=== PATIENT | male | born 1990 | race Caucasian/White ===

== ENCOUNTER 2020-05-03 07:00 | Outpatient (CLI) | payer OTHER | END 2020-05-03 23:59 | disposition home or self-care (01) | LOC: LAB.R 07:00 | PROVIDERS: ATTEND Physician Assistant Medical | DX: R31.9 Hematuria, unspecified (principal) | CPT/HCPCS: 87086 ==

== ENCOUNTER 2020-08-11 12:31 | Outpatient (CLI) | payer OTHER | END 2020-08-11 12:32 | disposition home or self-care (01) | LOC: COV 12:31 | PROVIDERS: ATTEND Family Medicine | DX: R50.9 Fever, unspecified (principal); R19.7 Diarrhea, unspecified; Z20.828 Contact with and (suspected) exposure to other viral communicable diseases ==

== ENCOUNTER 2022-12-12 16:35 | Outpatient (CLI) | payer SELFPAY ==
--- NOTE | 2022-12-13 19:20 | XRAY Report ---
PROCEDURE: Shoulder 2 View RT INDICATIONS: PAIN IN RIGHT SHOULDER TECHNIQUE: 2 views of the shoulder were acquired. COMPARISON: None. FINDINGS: Bones: No fractures or dislocations. No suspicious bony lesions. Visualized ribs appear intact. Soft tissues: No suspicious soft tissue calcifications. IMPRESSION: Unremarkable radiographic examination of right shoulder. Reviewed by: Dane Farley MD on 12/13/2022 7:19 PM PST Approved by: Dane Farley MD on 12/13/2022 7:19 PM [facility] Station ID: [id number]
== END 2022-12-12 16:36 | disposition home or self-care (01) ==
LOC: DI 16:35
PROVIDERS: ATTEND Physician Assistant
DX: M25.511 Pain in right shoulder (principal)

== ENCOUNTER 2023-02-07 08:25 | Emergency (ER) | payer SELFPAY ==
--- OUTSIDE RECORDS SUMMARY | 2023-02-07 09:02 | EXTERNAL MEDICAL SUMMARY RPT | Continuity of Care Document ---
:1990 Author Organization [facility] Address [address] [place] [address] Phone Care Team Providers Name Role Phone Kathie Otero Unavailable Unavailable Allergies and Intolerances date description facility type (no date) No Known Drug Allergies [facility] ([facility] own) Encounters No information. Functional Status No information. Immunizations No information. Medications date description facility 2022-12-23 00:00 Ondansetron [facility] 2022-12-23 00:00 [facility] Problems date description facility 2022-12-23 00:00 Calculus of kidney [facility] 2023-01-18 00:00 Abdominal pain [facility] Procedures date description facility 2022-12-23 00:00 CT kidney, ureter and bladder [facility] 2023-01-17 00:00 CT abdomen pelvis [facility] Results/Labs test date author facility value unit interpret ation Result panel 1 (unknown) (no date[facility]) Result panel 2 (unknown) (no date) (unknown[facility] Result panel 3 (unknown) (no date) (unknown[facility]) Result panel 4 (unknown) (no date) (unknown[facility]) Result panel 5 (unknown) (no date) (unknown[facility]) Result panel 6 (unknown) (no date) (unknown[facility]) Result panel 7 (unknown) (no date) (unknown[facility]) Result panel 8 (unknown) (no date) (unknown[facility]) Result panel 9 (unknown) (no date) (unknown[facility]) Result panel 10 (unknown) (no date) (unknown[facility]) Result panel 11 (unknown) (no date) (unknown[facility]) Result panel 12 (unknown) (no date) (unknown[facility]) Result panel 13 (unknown) (no date) (unknown[facility]) Result panel 14 (unknown) (no date) (unknown[facility]) Result panel 15 (unknown) (no date) (unknown[facility]) Result panel 16 (unknown) (no date) (unknown[facility]) Result panel 17 (unknown) (no date) (unknown[facility]) Result panel 18 (unknown) (no date) (unknown[facility]) Result panel 19 (unknown) (no date) (unknown[facility]) Result panel 20 (unknown) (no date) (unknown[facility]) Result panel 21 (unknown) (no date) (unknown[facility]) Result panel 22 (unknown) (no date) (unknown[facility]) Result panel 23 (unknown) (no date) (unknown[facility]) Result panel 24 (unknown) (no date) (unknown[facility]) Result panel 25 (unknown) (no date) (unknown[facility]) Result panel 26 (unknown) (no date) (unknown[facility]) Result panel 27 (unknown) (no date) (unknown[facility]) Result panel 28 (unknown) (no date) (unknown[facility]) Result panel 29 (unknown) (no date) (unknown[facility]) Result panel 30 (unknown) (no date) (unknown[facility]) Result panel 31 (unknown) (no date) (unknown[facility]) Result panel 32 (unknown) (no date) (unknown[facility]) Result panel 33 (unknown) (no date) (unknown[facility]) Result panel 34 (unknown) (no date) (unknown[facility]) Result panel 35 (unknown) (no date) (unknown[facility]) Result panel 36 (unknown) (no date) (unknown[facility]) Result panel 37 (unknown) (no date) (unknown[facility]) Result panel 38 (unknown) (no date) (unknown[facility]) Result panel 39 (unknown) (no date) (unknown[facility]) Result panel 40 (unknown) (no date) (unknown[facility]) Result panel 41 (unknown) (no date) (unknown[facility]) Result panel 42 (unknown) (no date) (unknown[facility]) Result panel 43 (unknown) (no date) (unknown[facility]) Result panel 44 (unknown) (no date) (unknown[facility]) Result panel 45 (unknown) (no date) (unknown[facility]) Result panel 46 (unknown) (no date) (unknown[facility]) Result panel 47 (unknown) (no date) (unknown[facility]) Result panel 48 (unknown) (no date) (unknown[facility]) Result panel 49 (unknown) (no date) (unknown[facility]) Result panel 50 (unknown) (no date) (unknown[facility]) Result panel 51 (unknown) (no date) (unknown) [facility]) Result panel 52 (unknown) (no date) (unknown) [facility]) Result panel 53 (unknown) (no date) (unknown) [facility]) Result panel 54 (unknown) (no date) (unknown[facility]) Result panel 55 (unknown) (no date) (unknown[facility]) Result panel 56 (unknown) (no date) (unknown) [facility]) Result panel 57 (unknown) (no date) (unknown[facility]) Result panel 58 (unknown) (no date) (unknown[facility]) Result panel 59 (unknown) (no date) (unknown[facility]) Result panel 60 (unknown) (no date) (unknown[facility]) Result panel 61 (unknown) (no date) (unknown[facility]) Result panel 62 (unknown) (no date) (unknown) [facility]) Result panel 63 (unknown) (no date) (unknown[facility]) Result panel 64 (unknown) (no date) (unknown[facility]) Result panel 65 (unknown) (no date) (unknown) [facility]) Result panel 66 (unknown) (no date) (unknown) [facility]) Result panel 67 (unknown) (no date) (unknown[facility]) Result panel 68 (unknown) (no date) (unknown[facility]) Result panel 69 (unknown) (no date) (unknown[facility]) Result panel 70 (unknown) (no date) (unknown) [facility]) Result panel 71 (unknown) (no date) (unknown) [facility]) Result panel 72 (unknown) (no date) (unknown[facility]) Result panel 73 (unknown) (no date) (unknown[facility]) Result panel 74 (unknown) (no date) (unknown) [facility]) Result panel 75 (unknown) (no date) (unknown) [facility]) Result panel 76 (unknown) (no date) (unknown) [facility]) Result panel 77 (unknown) (no date) (unknown[facility]) Result panel 78 (unknown) (no date) (unknown) [facility]) Result panel 79 (unknown) (no date) (unknown) [facility]) Result panel 80 (unknown) (no date) (unknown) [facility]) Result panel 81 (unknown) (no date) (unknown[facility]) Result panel 82 (unknown) (no date) (unknown[facility]) Result panel 83 (unknown) (no date) (unknown[facility]) Result panel 84 (unknown) (no date) (unknown[facility]) Result panel 85 (unknown) (no date) (unknown[facility]) Result panel 86 (unknown) (no date) (unknown[facility]) Result panel 87 (unknown) (no date) (unknown[facility]) Result panel 88 (unknown) (no date) (unknown[facility]) Result panel 89 (unknown) (no date) (unknown[facility]) Result panel 90 (unknown) (no date) (unknown[facility]) Result panel 91 (unknown) (no date) (unknown[facility]) Result panel 92 (unknown) (no date) (unknown[facility]) Result panel 93 (unknown) (no date) (unknown[facility]) Result panel 94 (unknown) (no date) (unknown[facility]) Result panel 95 (unknown) (no date) (unknown[facility]) Result panel 96 (unknown) (no date) (unknown[facility]) Result panel 97 (unknown) (no date) (unknown[facility]) Result panel 98 (unknown) (no date) (unknown[facility]) Result panel 99 (unknown) (no date) (unknown[facility]) Result panel 100 (unknown) (no date) (unknown[facility]) Result panel 101 (unknown) (no date) (unknown[facility]) Result panel 102 (unknown) (no date) (unknown[facility]) Result panel 103 (unknown) (no date) (unknown[facility]) Result panel 104 (unknown) (no date) (unknown[facility]) Result panel 105 (unknown) (no date) (unknown[facility]) Result panel 106 (unknown) (no date) (unknown[facility]) Result panel 107 (unknown) (no date) (unknown[facility]) Result panel 108 (unknown) (no date) (unknown[facility]) Result panel 109 (unknown) (no date) (unknown[facility]) Result panel 110 (unknown) (no date) (unknown[facility]) Result panel 111 (unknown) (no date) (unknown) [facility]) Result panel 112 (unknown) (no date) (unknown[facility]) Result panel 113 (unknown) (no date) (unknown[facility]) Result panel 114 (unknown) (no date) (unknown[facility]) Result panel 115 (unknown) (no date) (unknown[facility]) Result panel 116 (unknown) (no date) (unknown[facility]) Result panel 117 (unknown) (no date) (unknown) [facility]) Result panel 118 (unknown) (no date) (unknown) [facility]) Result panel 119 (unknown) (no date) (unknown) [facility]) Result panel 120 (unknown) (no date) (unknown) [facility]) Result panel 121 (unknown) (no date) (unknown[facility]) Result panel 122 (unknown) (no date) (unknown[facility]) Result panel 123 (unknown) (no date) (unknown) [facility]) Result panel 124 (unknown) (no date) (unknown[facility]) Result panel 125 (unknown) (no date) (unknown[facility]) Result panel 126 (unknown) (no date) (unknown[facility]) Result panel 127 (unknown) (no date) (unknown[facility]) Result panel 128 (unknown) (no date) (unknown[facility]) Result panel 129 (unknown) (no date) (unknown[facility]) Result panel 130 (unknown) (no date) (unknown[facility]) Result panel 131 (unknown) (no date) (unknown[facility]) Result panel 132 (unknown) (no date) (unknown) [facility]) Result panel 133 (unknown) (no date) (unknown[facility]) Result panel 134 (unknown) (no date) (unknown[facility]) Result panel 135 (unknown) (no date) (unknown) [facility]) Result panel 136 (unknown) (no date) (unknown) [facility]) Result panel 137 (unknown) (no date) (unknown[facility]) Result panel 138 (unknown) (no date) (unknown) [facility]) Result panel 139 (unknown) (no date) (unknown[facility]) Result panel 140 (unknown) (no date) (unknown[facility]) Result panel 141 (unknown) (no date) (unknown[facility]) Result panel 142 (unknown) (no date) (unknown) [facility]) Result panel 143 (unknown) (no date) (unknown[facility]) Result panel 144 (unknown) (no date) (unknown[facility]) Result panel 145 (unknown) (no date) (unknown) [facility]) Result panel 146 (unknown) (no date) (unknown) [facility]) Result panel 147 (unknown) (no date) (unknown) [facility]) Result panel 148 (unknown) (no date) (unknown) [facility]) Result panel 149 (unknown) (no date) (unknown) [facility]) Result panel 150 (unknown) (no date) (unknown) [facility]) Result panel 151 (unknown) (no date) (unknown) [facility]) Result panel 152 (unknown) (no date) (unknown) [facility]) Result panel 153 (unknown) (no date) (unknown) [facility]) Result panel 154 (unknown) (no date) (unknown) [facility]) Result panel 155 (unknown) (no date) (unknown) [facility]) Result panel 156 (unknown) (no date) (unknown) [facility]) Result panel 157 (unknown) (no date) (unknown) [facility]) Result panel 158 (unknown) (no date) (unknown) [facility]) Result panel 159 (unknown) (no date) (unknown) [facility]) Result panel 160 (unknown) (no date) (unknown) [facility]) Result panel 161 (unknown) (no date) (unknown) [facility]) Result panel 162 (unknown) (no date) (unknown) [facility]) Result panel 163 (unknown) (no date) (unknown) [facility]) Result panel 164 (unknown) (no date) (unknown) [facility]) Result panel 165 (unknown) (no date) (unknown) [facility]) Result panel 166 (unknown) (no date) (unknown) [facility]) Result panel 167 (unknown) (no date) (unknown) [facility]) Result panel 168 (unknown) (no date) (unknown) [facility]) Result panel 169 (unknown) (no date) (unknown) [facility]) Result panel 170 (unknown) (no date) (unknown) [facility]) Result panel 171 (unknown) (no date) (unknown) [facility]) Result panel 172 (unknown) (no date) (unknown) [facility]) Result panel 173 (unknown) (no date) (unknown) [facility]) Result panel 174 (unknown) (no (unknown) (unknown) (no value) (units (unk nown) date) unknown) (unknown) (no (unknown) (unknown) 12/23/22 (units (unkno wn) date) unknown) (unknown) (no (unknown) (unknown) 1. Obstructing (units (unknown) date) urinary stone at unknown) the right UPJ with mild right hydronephrosis. (unknown) (no (unknown) (unknown) [address] (units (unknown) date) unknown) (unknown) (no (unknown) (unknown) 2. Additional (units ( unknown) date) bilateral unknown) nonobstructing renal stones as described. (unknown) (no (unknown) (unknown) [id number] (units (unkno wn) date) unknown) (unknown) (no (unknown) (unknown) 300-400 (units (unkno wn) date) [place] units. unknown) There is associated mild right hydronephrosis with (unknown) (no (unknown) (unknown) ABDOMEN: (units (unkno wn) date) unknown) (unknown) (no (unknown) (unknown) Abdominal Nodes: (units (unknown) date) No retroperitoneal unknown) or mesenteric adenopathy by size criteria. (unknown) (no (unknown) (unknown) Accession Number: (units (unknown) date) [id number] unknown) (unknown) (no (unknown) (unknown) Adrenal Glands: (units (unknown) date) No adrenal unknown) nodules. (unknown) (no (unknown) (unknown) Age/Sex: 32 / M (units (unknown) date) Date of Service: unknown) (unknown) (no (unknown) (unknown) [place], [place] (units ( unknown) date) [id number] unknown) (unknown) (no (unknown) (unknown) Approved by: (units (u nknown) date) Elijah Ramirez, unknown) Antonia on 12/23/2022 at 1:42 (unknown) (no (unknown) (unknown) Axial sections (units (unknown) date) were acquired from unknown) the lung bases to the pubic symphysis. (unknown) (no (unknown) (unknown) Biliary ducts: No (units (unknown) date) biliary ductal unknown) dilatation. (unknown) (no (unknown) (unknown) Bladder: Normal (units (unknown) date) wall thickness. No unknown) stones. (unknown) (no (unknown) (unknown) Bones: Visualized (units (unknown) date) osseous structures unknown) demonstrate no suspicious focal lesions. (unknown) (no (unknown) (unknown) COMPARISON: (units (un known) date) [facility], unknown) CT, CT ABDOMEN PELVIS [facility], 05/18/2022, 19:05. (unknown) (no (unknown) (unknown) CT Scan Report (units (unknown) date) unknown) (unknown) (no (unknown) (unknown) Coronal and (units (un known) date) unknown) (unknown) (no (unknown) (unknown) : 1990 (units (unknown) date) Acct:[id number] unknown) (unknown) (no (unknown) (unknown) Dictated by: (units (u nknown) date) Elijah Ramirez unknownMorris Knight on 12/23/2022 at 1:39 (unknown) (no (unknown) (unknown) FINDINGS: (units (unkn own) date) unknown) (unknown) (no (unknown) (unknown) Gallbladder: (units (u nknown) date) Within normal unknown) limits without calcified gallstones. (unknown) (no (unknown) (unknown) Heart: Heart is (units (unknown) date) normal in size. unknown) (unknown) (no (unknown) (unknown) Hospital, CT, (units ( unknown) date) KIDNEY/ unknown) URETER/BLADDER, 11/20/2015, 22:21. (unknown) (no (unknown) (unknown) IMPRESSION: (units (un known) date) unknown) (unknown) (no (unknown) (unknown) INDICATIONS: (units (u nknown) date) right flank prior unknown) stones (unknown) (no (unknown) (unknown) Image quality: (units (unknown) date) Excellent. unknown) (unknown) (no (unknown) (unknown) [facility] (units (unknown) date) unknown) (unknown) (no (unknown) (unknown) Prole (units (unkno wn) date) unknown) (unknown) (no (unknown) (unknown) Left Kidney and (units (unknown) date) Ureter: There are unknown) 3 nonobstructing left renal stones with the (unknown) (no (unknown) (unknown) Liver: (units (unkno wn) date) Noncontrast unknown) evaluation of the liver demonstrates no discrete mass. (unknown) (no (unknown) (unknown) Loc: ED (units (unkno wn) date) unknown) (unknown) (no (unknown) (unknown) Lung bases: There (units (unknown) date) is minimal unknown) atelectasis. (unknown) (no (unknown) (unknown) Miscellaneous: No (units (unknown) date) inguinal hernias unknown) identified. (unknown) (no (unknown) (unknown) Ordering (units (unkno wn) date) Provider: unknown) Nicole Gray D.O. (unknown) (no (unknown) (unknown) PELVIS: (units (unkno wn) date) unknown) (unknown) (no (unknown) (unknown) PROCEDURE: CT (units ( unknown) date) KIDNEY URETER unknown) BLADDER (KUB) (unknown) (no (unknown) (unknown) Pancreas: (units (unkn own) date) Unremarkable. unknown) (unknown) (no (unknown) (unknown) Patient: (units (unkno wn) date) Chapo Davis MR#: unknown) [id number] (unknown) (no (unknown) (unknown) Pelvic Nodes: No (units (unknown) date) enlarged lymph unknown) nodes. (unknown) (no (unknown) (unknown) Pelvic Organs: (units (unknown) date) Unremarkable. unknown) (unknown) (no (unknown) (unknown) Peritoneum: No (units (unknown) date) abnormal unknown) intraperitoneal fluid. No free air. (unknown) (no (unknown) (unknown) Procedure: CT (units ( unknown) date) kidney ureter unknown) bladder (KUB) (unknown) (no (unknown) (unknown) Right Kidney and (units (unknown) date) Ureter: There is unknown) an obstructing urinary stone at the right (unknown) (no (unknown) (unknown) Signed (units (unkno wn) date) unknown) (unknown) (no (unknown) (unknown) Spleen: Normal in (units (unknown) date) size. unknown) (unknown) (no (unknown) (unknown) Stomach and (units (un known) date) Bowel: Stomach, unknown) small bowel loops, and colon are normal in caliber (unknown) (no (unknown) (unknown) TECHNIQUE: (units (unk nown) date) unknown) (unknown) (no (unknown) (unknown) URINARY: (units (unkno wn) date) unknown) (unknown) (no (unknown) (unknown) Ventral Wall: No (units (unknown) date) hernia. unknown) (unknown) (no (unknown) (unknown) Vessels: Aorta (units (unknown) date) and inferior vena unknown) cava are normal in size. (unknown) (no (unknown) (unknown) and wall (units (unkno wn) date) unknown) (unknown) (no (unknown) (unknown) approximately (units ( unknown) date) unknown) (unknown) (no (unknown) (unknown) automated (units (unkn own) date) exposure control, unknown) adjustment of mA and/or kV according to patient (unknown) (no (unknown) (unknown) largest (units (unkno wn) date) unknown) (unknown) (no (unknown) (unknown) measuring up to (units (unknown) date) 0.4 cm. No unknown) hydronephrosis. No hydroureter. (unknown) (no (unknown) (unknown) perinephric (units (un known) date) unknown) (unknown) (no (unknown) (unknown) sagittal (units (unkno wn) date) reformats were unknown) performed. For radiation dose reduction, the following (unknown) (no (unknown) (unknown) size. (units (unkno wn) date) unknown) (unknown) (no (unknown) (unknown) stones with (units (un known) date) unknown) (unknown) (no (unknown) (unknown) stranding. There (units (unknown) date) are approximately unknown) 5 additional nonobstructing right renal (unknown) (no (unknown) (unknown) the UPJ. (units (unkno wn) date) unknown) (unknown) (no (unknown) (unknown) the largest (units (un known) date) measuring up to unknown) 0.3 cm. The right ureter is nondistended distal to (unknown) (no (unknown) (unknown) thickness. The (units (unknown) date) appendix is normal unknown) in appearance. (unknown) (no (unknown) (unknown) ureteropelvic (units ( unknown) date) junction measuring unknown) up to 0.5 cm with attenuation values of (unknown) (no (unknown) (unknown) was used: (units (unkn own) date) unknown) Result panel 175 (unknown) (no date) (unknown) (unknown) 0-1/HPF (units (unkn own) unknown) (unknown) (no date) (unknown) (unknown) 5-10/HPF (units (unkn own) unknown) (unknown) (no date) (unknown) (unknown) 5-10/HPF (units (unkn own) unknown) (unknown) (no date) (unknown) (unknown) Cult Not (units (unkn own) Indicated unknown) (unknown) (no date) (unknown) (unknown) None Seen (units (unk nown) unknown) Result panel 176 (unknown) (no date) (unknown) (unknown) 0.6 % (unkn own) (unknown) (no date) (unknown) (unknown) 10.5 x10 3/ul (unkn own) (unknown) (no date) (unknown) (unknown) 100 /ul (unkn own) (unknown) (no date) (unknown) (unknown) 13.1 % (unkn own) (unknown) (no date) (unknown) (unknown) 14.3 g/dl (unkn own) (unknown) (no date) (unknown) (unknown) 25.0 % (unkn own) (unknown) (no date) (unknown) (unknown) 254 x10 3/ul (unkn own) (unknown) (no date) (unknown) (unknown) 2600 /ul (unkn own) (unknown) (no date) (unknown) (unknown) 29.3 pg (unkn own) (unknown) (no date) (unknown) (unknown) 33.6 % (unkn own) (unknown) (no date) (unknown) (unknown) 4.8 % (unkn own) (unknown) (no date) (unknown) (unknown) 4.88 x10 6/ul (unkn own) (unknown) (no date) (unknown) (unknown) 42.5 % (unkn own) (unknown) (no date) (unknown) (unknown) 500 /ul (unkn own) (unknown) (no date) (unknown) (unknown) 61.1 % (unkn own) (unknown) (no date) (unknown) (unknown) 6400 /ul (unkn own) (unknown) (no date) (unknown) (unknown) 8.5 % (unkn own) (unknown) (no date) (unknown) (unknown) 87.1 fl (unkn own) (unknown) (no date) (unknown) (unknown) 900 /ul (unkn own) Result panel 177 (unknown) (no date) (unknown) (unknown) > 60 ml/min (unkn own) (unknown) (no date) (unknown) (unknown) > 60 ml/min (unkn own) (unknown) (no date) (unknown) (unknown) 0.4 mg/dl (unkn own) (unknown) (no date) (unknown) (unknown) 1.2 (units unknown) (unknown) (unknown) (no date) (unknown) (unknown) 1.29 mg/dl (unkn own) (unknown) (no date) (unknown) (unknown) 104 mmol/l (unkn own) (unknown) (no date) (unknown) (unknown) 106 mg/dl (unkn own) (unknown) (no date) (unknown) (unknown) 106 mg/dl (unkn own) (unknown) (no date) (unknown) (unknown) 141 mmol/l (unkn own) (unknown) (no date) (unknown) (unknown) 16.3 (units unknown) (unknown) (unknown) (no date) (unknown) (unknown) 21 mg/dl (unkn own) (unknown) (no date) (unknown) (unknown) 29 iu/l (unkn own) (unknown) (no date) (unknown) (unknown) 3.4 g/dl (unkn own) (unknown) (no date) (unknown) (unknown) 3.8 mmol/l (unkn own) (unknown) (no date) (unknown) (unknown) 30 mmol/l (unkn own) (unknown) (no date) (unknown) (unknown) 35 iu/l (unkn own) (unknown) (no date) (unknown) (unknown) 4.1 g/dl (unkn own) (unknown) (no date) (unknown) (unknown) 7.5 g/dl (unkn own) (unknown) (no date) (unknown) (unknown) 74 u/l (unkn own) (unknown) (no date) (unknown) (unknown) 75 u/l (unkn own) (unknown) (no date) (unknown) (unknown) 9.1 mg/dl (unkn own) Result panel 178 (unknown) (no (unknown) (unknown) (no value) (units (unk nown) date) unknown) (unknown) (no (unknown) (unknown) 00:50 12/23/22 (units (unknown) date) unknown) (unknown) (no (unknown) (unknown) 00:56 12/23/22 (units (unknown) date) unknown) (unknown) (no (unknown) (unknown) 00:58 12/23/22 (units (unknown) date) unknown) (unknown) (no (unknown) (unknown) 00:58 (units (unkno wn) date) unknown) (unknown) (no (unknown) (unknown) 01:00 12/23/22 (units (unknown) date) unknown) (unknown) (no (unknown) (unknown) 01:10 01:40 (units (un known) date) 01:40 unknown) (unknown) (no (unknown) (unknown) 01:34 (units (unkno wn) date) unknown) (unknown) (no (unknown) (unknown) 01:42 12/23/22 (units (unknown) date) unknown) (unknown) (no (unknown) (unknown) 12/23/22 01:10 (units (unknown) date) unknown) (unknown) (no (unknown) (unknown) 12/23/22 01:36 (units (unknown) date) unknown) (unknown) (no (unknown) (unknown) 12/23/22 01:40 (units (unknown) date) unknown) (unknown) (no (unknown) (unknown) 12/23/22 (units (unkno wn) date) 12/23/22 12/23/22 unknown) Range/Units (unknown) (no (unknown) (unknown) 12/23/22 (units (unkno wn) date) unknown) (unknown) (no (unknown) (unknown) 02:00 (units (unkno wn) date) unknown) (unknown) (no (unknown) (unknown) 1 tab PO BID (units (u nknown) date) Qty: 20 0RF unknown) (unknown) (no (unknown) (unknown) [address] (units (unkno wn) date) unknown) (unknown) (no (unknown) (unknown) ALT 35 (<50) (units (u nknown) date) IU/L unknown) (unknown) (no (unknown) (unknown) AST 29 (17-59) (units (unknown) date) IU/L unknown) (unknown) (no (unknown) (unknown) Age/Sex: 32 / M (units (unknown) date) unknown) (unknown) (no (unknown) (unknown) Albumin 4.1 (units (un known) date) (3.5-5.0) g/dL unknown) (unknown) (no (unknown) (unknown) Albumin/Globulin (units (unknown) date) Ratio 1.2 unknown) (1.0-2.8) (unknown) (no (unknown) (unknown) Alkaline (units (unkno wn) date) Phosphatase 74 unknown) (38-126) U/L (unknown) (no (unknown) (unknown) Allergies (units (unkn own) date) unknown) (unknown) (no (unknown) (unknown) Allergy/AdvReac (units (unknown) date) Type Severity unknown) Reaction Status Date / Time (unknown) (no (unknown) (unknown) BUN 21 H (9-20) (units (unknown) date) mg/dL unknown) (unknown) (no (unknown) (unknown) BUN/Creatinine (units (unknown) date) Ratio 16.3 (6-22) unknown) (unknown) (no (unknown) (unknown) Baso # (Auto) (units ( unknown) date) 100 (0-100) /uL unknown) (unknown) (no (unknown) (unknown) Baso % (Auto) (units ( unknown) date) 0.6 (0-2) % unknown) (unknown) (no (unknown) (unknown) Bedside Urine (units ( unknown) date) Bilirubin - unknown) Negative (unknown) (no (unknown) (unknown) Bedside Urine (units ( unknown) date) Glucose Negative unknown) (unknown) (no (unknown) (unknown) Bedside Urine (units ( unknown) date) Ketone - Negative unknown) (unknown) (no (unknown) (unknown) Bedside Urine (units ( unknown) date) Leukocytes - unknown) Negative (unknown) (no (unknown) (unknown) Bedside Urine (units ( unknown) date) Nitrite - unknown) Negative (unknown) (no (unknown) (unknown) Bedside Urine (units ( unknown) date) Occult Blood unknown) (unknown) (no (unknown) (unknown) Bedside Urine (units ( unknown) date) Protein + 30 unknown) (unknown) (no (unknown) (unknown) Bedside Urine (units ( unknown) date) Urobilinogen - unknown) Negative (unknown) (no (unknown) (unknown) Bedside Urine pH (units (unknown) date) 6.0 unknown) (unknown) (no (unknown) (unknown) Blood Pressure (units (unknown) date) 128/82 12/23/22 unknown) 00:50 (unknown) (no (unknown) (unknown) Blood Pressure (units (unknown) date) 128/82 unknown) (unknown) (no (unknown) (unknown) Blood Pressure (units (unknown) date) 141/87 H 135/82 unknown) (unknown) (no (unknown) (unknown) Blood Pressure (units (unknown) date) unknown) (unknown) (no (unknown) (unknown) CBC Auto Diff (units ( unknown) date) [Complete Blood unknown) Count AUTO DIFF] Stat (unknown) (no (unknown) (unknown) CMP (units (unkno wn) date) [Comprehensive unknown) Metabolic Panel] Stat (unknown) (no (unknown) (unknown) CT kidney ureter (units (unknown) date) bladder (KUB) unknown) Stat (unknown) (no (unknown) (unknown) Calcium 9.1 (units (un known) date) (8.4-10.2) mg/dL unknown) (unknown) (no (unknown) (unknown) Carbon Dioxide (units (unknown) date) 30 (22-32) mmol/L unknown) (unknown) (no (unknown) (unknown) Chief complaint: (units (unknown) date) Urogenital-Male unknown) (unknown) (no (unknown) (unknown) Chloride 104 (units (u nknown) date) (98-107) mmol/L unknown) (unknown) (no (unknown) (unknown) Course (units (unkno wn) date) unknown) (unknown) (no (unknown) (unknown) Creatinine 1.29 (units (unknown) date) H (0.66-1.25) unknown) mg/dL (unknown) (no (unknown) (unknown) : 1990 (units (unknown) date) Acct:[id number] unknown) (unknown) (no (unknown) (unknown) Date of Service: (units (unknown) date) 12/23/22 unknown) (unknown) (no (unknown) (unknown) Departure (units (unkn own) date) unknown) (unknown) (no (unknown) (unknown) Discharge Plan (units (unknown) date) unknown) (unknown) (no (unknown) (unknown) Discontinued (units (u nknown) date) Medications unknown) (unknown) (no (unknown) (unknown) Documented By: (units (unknown) date) GC unknown) (unknown) (no (unknown) (unknown) ED Orders (units (unkn own) date) unknown) (unknown) (no (unknown) (unknown) ER Physician: (units ( unknown) date) Nicole Gray unknown) D.O. (unknown) (no (unknown) (unknown) Emergency Report (units (unknown) date) unknown) (unknown) (no (unknown) (unknown) Eos # (Auto) 500 (units (unknown) date) H (0-450) /uL unknown) (unknown) (no (unknown) (unknown) Eos % (Auto) 4.8 (units (unknown) date) H (2-4) % unknown) (unknown) (no (unknown) (unknown) Esterase (units (unkno wn) date) unknown) (unknown) (no (unknown) (unknown) Estimated GFR > (units (unknown) date) 60 (>60) mL/min unknown) (unknown) (no (unknown) (unknown) Exam (units (unkno wn) date) unknown) (unknown) (no (unknown) (unknown) General (units (unkno wn) date) unknown) (unknown) (no (unknown) (unknown) Globulin 3.4 (units (u nknown) date) (1.7-4.1) g/dL unknown) (unknown) (no (unknown) (unknown) Glucose 106 H (units ( unknown) date) (70-100) mg/dL unknown) (unknown) (no (unknown) (unknown) HPI - Male (units (unk nown) date) Genitourinary unknown) (unknown) (no (unknown) (unknown) Hct 42.5 (41-53) (units (unknown) date) % unknown) (unknown) (no (unknown) (unknown) Hgb 14.3 (units (unkno wn) date) (13.5-17.5) g/dL unknown) (unknown) (no (unknown) (unknown) Initial Vital (units ( unknown) date) Signs unknown) (unknown) (no (unknown) (unknown) Initial Vital (units ( unknown) date) Signs: unknown) (unknown) (no (unknown) (unknown) [facility] (units (unknown) date) [address] unknown) [place] [address] (unknown) (no (unknown) (unknown) Ketorolac (units (unkn own) date) Tromethamine unknown) (Ketorolac 30 Mg/Ml Vial) 15 mg IV NOW ONE (unknown) (no (unknown) (unknown) Lab Data (units (unkno wn) date) unknown) (unknown) (no (unknown) (unknown) Lab Results (units (un known) date) unknown) (unknown) (no (unknown) (unknown) Labs: (units (unkno wn) date) unknown) (unknown) (no (unknown) (unknown) Last Admin: (units (un known) date) 12/23/22 01:49 unknown) Dose: 15 mg (unknown) (no (unknown) (unknown) Lipase 75 (units (unkn own) date) (23-300) U/L unknown) (unknown) (no (unknown) (unknown) Lipase Stat (units (un known) date) unknown) (unknown) (no (unknown) (unknown) Lymph # (Auto) (units (unknown) date) 2600 (0041-4324) unknown) /uL (unknown) (no (unknown) (unknown) Lymph % (Auto) (units (unknown) date) 25.0 (25-40) % unknown) (unknown) (no (unknown) (unknown) MCH 29.3 (26-34) (units (unknown) date) PG unknown) (unknown) (no (unknown) (unknown) MCHC 33.6 (units (unkn own) date) (30-36) % unknown) (unknown) (no (unknown) (unknown) MCV 87.1 (units (o wn) date) (80-100) fL unknown) (unknown) (no (unknown) (unknown) MDM - Male (units (unk n) date) Genitourinary unknown) (unknown) (no (unknown) (unknown) Medication (units (k n) date) Instructions unknown) Recorded (unknown) (no (unknown) (unknown) Mode of arrival: (units (unknown) date) Ambulatory unknown) (unknown) (no (unknown) (unknown) [place] # (Auto) (units ( unknown) date) 900 (0-900) /uL unknown) (unknown) (no (unknown) (unknown) [place] % (Auto) (units ( unknown) date) 8.5 (3-14) % unknown) (unknown) (no (unknown) (unknown) Neut # (Auto) (units ( unknown) date) 6400 (6626-4051) unknown) /uL (unknown) (no (unknown) (unknown) Neut % (Auto) (units ( unknown) date) 61.1 (50-75) % unknown) (unknown) (no (unknown) (unknown) No Action (units (unkn own) date) unknown) (unknown) (no (unknown) (unknown) No Known Drug (units ( unknown) date) Allergies Allergy unknown) Verified 05/18/22 17:32 (unknown) (no (unknown) (unknown) Ordered: (units (unkno wn) date) unknown) (unknown) (no (unknown) (unknown) Orders (units (unkno wn) date) unknown) (unknown) (no (unknown) (unknown) Oxygen Delivery (units (unknown) date) Method 12/23/22 unknown) 00:50 (unknown) (no (unknown) (unknown) Oxygen Delivery (units (unknown) date) Method Room Air unknown) (unknown) (no (unknown) (unknown) Oxygen Delivery (units (unknown) date) Method unknown) (unknown) (no (unknown) (unknown) Patient History (units (unknown) date) unknown) (unknown) (no (unknown) (unknown) Patient: (units (unkno wn) date) Chapo Davis unknown) MR#: [id number] (unknown) (no (unknown) (unknown) Plt Count 254 (units ( unknown) date) (150-400) X103/uL unknown) (unknown) (no (unknown) (unknown) Potassium 3.8 (units ( unknown) date) (3.4-5.1) mmol/L unknown) (unknown) (no (unknown) (unknown) Prescriptions: (units (unknown) date) unknown) (unknown) (no (unknown) (unknown) Previous Rx's (units ( unknown) date) unknown) (unknown) (no (unknown) (unknown) Pulse Oximetry (units (unknown) date) 94 unknown) (unknown) (no (unknown) (unknown) Pulse Oximetry (units (unknown) date) 97 12/23/22 00:50 unknown) (unknown) (no (unknown) (unknown) Pulse Oximetry (units (unknown) date) 97 97 97 unknown) (unknown) (no (unknown) (unknown) Pulse Oximetry (units (unknown) date) 97 97 unknown) (unknown) (no (unknown) (unknown) Pulse Oximetry (units (unknown) date) 97 unknown) (unknown) (no (unknown) (unknown) Pulse Rate 86 (units ( unknown) date) unknown) (unknown) (no (unknown) (unknown) Pulse Rate 89 (units ( unknown) date) unknown) (unknown) (no (unknown) (unknown) Pulse Rate 91 H (units (unknown) date) 12/23/22 00:50 unknown) (unknown) (no (unknown) (unknown) Pulse Rate 91 H (units (unknown) date) 94 H 95 H unknown) (unknown) (no (unknown) (unknown) Pulse Rate 95 H (units (unknown) date) 105 H unknown) (unknown) (no (unknown) (unknown) RBC 4.88 (units (unkno wn) date) (4.5-5.9) X106/uL unknown) (unknown) (no (unknown) (unknown) RDW 13.1 (units (unkno wn) date) (11.6-14.8) % unknown) (unknown) (no (unknown) (unknown) Referrals: (units (unk nown) date) unknown) (unknown) (no (unknown) (unknown) Related Data (units (u nknown) date) unknown) (unknown) (no (unknown) (unknown) Respiratory Rate (units (unknown) date) 18 12/23/22 00:50 unknown) (unknown) (no (unknown) (unknown) Respiratory Rate (units (unknown) date) 18 unknown) (unknown) (no (unknown) (unknown) Respiratory Rate (units (unknown) date) unknown) (unknown) (no (unknown) (unknown) Signed By: (units (unk nown) date) unknown) (unknown) (no (unknown) (unknown) Smoking Status: (units (unknown) date) Never smoker unknown) (unknown) (no (unknown) (unknown) Social History (units (unknown) date) (Reviewed unknown) 05/18/22 @ 23:13 by Yessy Schulte MD) (unknown) (no (unknown) (unknown) Sodium 141 (units (unk nown) date) (137-145) mmol/L unknown) (unknown) (no (unknown) (unknown) Source: patient (units (unknown) date) unknown) (unknown) (no (unknown) (unknown) Stated (units (unkno wn) date) complaint: rt. unknown) side back pain/abd. pain (unknown) (no (unknown) (unknown) Stop: 12/23/22 (units (unknown) date) 01:24 unknown) (unknown) (no (unknown) (unknown) Substance Use (units ( unknown) date) Type: does not unknown) use (unknown) (no (unknown) (unknown) Temperature 97.8 (units (unknown) date) F 12/23/22 00:50 unknown) (unknown) (no (unknown) (unknown) Temperature 97.8 (units (unknown) date) F unknown) (unknown) (no (unknown) (unknown) Temperature (units (un known) date) unknown) (unknown) (no (unknown) (unknown) Time Seen by (units (u nknown) date) Provider: unknown) 12/23/22 01:23 (unknown) (no (unknown) (unknown) Total Bilirubin (units (unknown) date) 0.4 (0.2-1.3) unknown) mg/dL (unknown) (no (unknown) (unknown) Total Protein (units ( unknown) date) 7.5 (6.3-8.2) unknown) g/dL (unknown) (no (unknown) (unknown) Ur Culture (units (unk nown) date) Indicated? Cult unknown) not indicated (unknown) (no (unknown) (unknown) Urine Bacteria (units (unknown) date) None seen (None) unknown) (unknown) (no (unknown) (unknown) Urine Dip (units (unkn own) date) unknown) (unknown) (no (unknown) (unknown) Urine (units (unkno wn) date) Microscopic Stat unknown) (unknown) (no (unknown) (unknown) Urine RBC (units (unkn own) date) 5-10/hpf H unknown) (0-5/HPF) (unknown) (no (unknown) (unknown) Urine Specific (units (unknown) date) [place] 1.025 unknown) (unknown) (no (unknown) (unknown) Urine WBC (units (unkn own) date) 0-1/hpf (0-5/HPF) unknown) (unknown) (no (unknown) (unknown) Vital Signs - 8 (units (unknown) date) hr unknown) (unknown) (no (unknown) (unknown) Vital Signs (units (un known) date) unknown) (unknown) (no (unknown) (unknown) Vital signs: (units (u nknown) date) unknown) (unknown) (no (unknown) (unknown) WBC 10.5 (units (unkno wn) date) (4.5-11.0) unknown) X103/uL (unknown) (no (unknown) (unknown) Kathie Otero, (units (unknown) date) PA-C [Primary unknown) Care Provider] (unknown) (no (unknown) (unknown) [Embedded Image (units (unknown) date) Not Available] unknown) (unknown) (no (unknown) (unknown) alcohol intake (units (unknown) date) frequency: 0-2 unknown) drinks per day (unknown) (no (unknown) (unknown) amoxicillin 875 (units (unknown) date) mg-potassium 1 unknown) tab PO BID #20 tabs 05/18/22 (unknown) (no (unknown) (unknown) amoxicillin-pot (units (unknown) date) clavulanate unknown) 875-125 mg tablet (unknown) (no (unknown) (unknown) clavulanate 125 (units (unknown) date) mg tablet unknown) Result panel 179 (unknown) (no (unknown) (unknown) (no value) (units (unk nown) date) unknown) (unknown) (no (unknown) (unknown) 00:50 12/23/22 (units (unknown) date) unknown) (unknown) (no (unknown) (unknown) 00:56 12/23/22 (units (unknown) date) unknown) (unknown) (no (unknown) (unknown) 00:58 12/23/22 (units (unknown) date) unknown) (unknown) (no (unknown) (unknown) 00:58 (units (unkno wn) date) unknown) (unknown) (no (unknown) (unknown) 01:00 12/23/22 (units (unknown) date) unknown) (unknown) (no (unknown) (unknown) 01:10 01:40 01:40 (units (unknown) date) unknown) (unknown) (no (unknown) (unknown) 01:34 (units (unkno wn) date) unknown) (unknown) (no (unknown) (unknown) 01:42 12/23/22 (units (unknown) date) unknown) (unknown) (no (unknown) (unknown) 12/23/22 01:10 (units (unknown) date) unknown) (unknown) (no (unknown) (unknown) 12/23/22 01:36 (units (unknown) date) unknown) (unknown) (no (unknown) (unknown) 12/23/22 01:40 (units (unknown) date) unknown) (unknown) (no (unknown) (unknown) 12/23/22 12/23/22 (units (unknown) date) 12/23/22 unknown) Range/Units (unknown) (no (unknown) (unknown) 12/23/22 (units (unkno wn) date) unknown) (unknown) (no (unknown) (unknown) 02:00 (units (unkno wn) date) unknown) (unknown) (no (unknown) (unknown) 1 tab PO BID Qty: (units (unknown) date) 20 0RF unknown) (unknown) (no (unknown) (unknown) [id number] (units (unkno wn) date) unknown) (unknown) (no (unknown) (unknown) ABDOMEN: Soft, (units (unknown) date) mild right lower unknown) quadrant pain no guarding no rebound negative (unknown) (no (unknown) (unknown) ALT 35 (<50) IU/L (units (unknown) date) unknown) (unknown) (no (unknown) (unknown) AST 29 (17-59) (units (unknown) date) IU/L unknown) (unknown) (no (unknown) (unknown) Age/Sex: 32 / M (units (unknown) date) unknown) (unknown) (no (unknown) (unknown) Albumin 4.1 (units (un known) date) (3.5-5.0) g/dL unknown) (unknown) (no (unknown) (unknown) Albumin/Globulin (units (unknown) date) Ratio 1.2 unknown) (1.0-2.8) (unknown) (no (unknown) (unknown) Alkaline (units (unkno wn) date) Phosphatase 74 unknown) (38-126) U/L (unknown) (no (unknown) (unknown) Allergies (units (unkn own) date) unknown) (unknown) (no (unknown) (unknown) Allergy/AdvReac (units (unknown) date) Type Severity unknown) Reaction Status Date / Time (unknown) (no (unknown) (unknown) BUN 21 H (9-20) (units (unknown) date) mg/dL unknown) (unknown) (no (unknown) (unknown) BUN/Creatinine (units (unknown) date) Ratio 16.3 (6-22) unknown) (unknown) (no (unknown) (unknown) Baso # (Auto) 100 (units (unknown) date) (0-100) /uL unknown) (unknown) (no (unknown) (unknown) Baso % (Auto) 0.6 (units (unknown) date) (0-2) % unknown) (unknown) (no (unknown) (unknown) Bedside Urine (units ( unknown) date) Bilirubin - unknown) Negative (unknown) (no (unknown) (unknown) Bedside Urine (units ( unknown) date) Glucose Negative unknown) (unknown) (no (unknown) (unknown) Bedside Urine (units ( unknown) date) Ketone - Negative unknown) (unknown) (no (unknown) (unknown) Bedside Urine (units ( unknown) date) Leukocytes - unknown) Negative (unknown) (no (unknown) (unknown) Bedside Urine (units ( unknown) date) Nitrite - Negative unknown) (unknown) (no (unknown) (unknown) Bedside Urine (units ( unknown) date) Occult Blood unknown) (unknown) (no (unknown) (unknown) Bedside Urine (units ( unknown) date) Protein + 30 unknown) (unknown) (no (unknown) (unknown) Bedside Urine (units ( unknown) date) Urobilinogen - unknown) Negative (unknown) (no (unknown) (unknown) Bedside Urine pH (units (unknown) date) 6.0 unknown) (unknown) (no (unknown) (unknown) Blood Pressure (units (unknown) date) 128/82 12/23/22 unknown) 00:50 (unknown) (no (unknown) (unknown) Blood Pressure (units (unknown) date) 128/82 unknown) (unknown) (no (unknown) (unknown) Blood Pressure (units (unknown) date) 141/87 H 135/82 unknown) (unknown) (no (unknown) (unknown) Blood Pressure (units (unknown) date) unknown) (unknown) (no (unknown) (unknown) CARDIOVASCULAR: (units (unknown) date) Regular rate and unknown) rhythm without murmurs, rubs or gallops. (unknown) (no (unknown) (unknown) CBC Auto Diff (units ( unknown) date) [Complete Blood unknown) Count AUTO DIFF] Stat (unknown) (no (unknown) (unknown) CMP (units (unkno wn) date) [Comprehensive unknown) Metabolic Panel] Stat (unknown) (no (unknown) (unknown) CT kidney ureter (units (unknown) date) bladder (KUB) Stat unknown) (unknown) (no (unknown) (unknown) Calcium 9.1 (units (un known) date) (8.4-10.2) mg/dL unknown) (unknown) (no (unknown) (unknown) Carbon Dioxide 30 (units (unknown) date) (22-32) mmol/L unknown) (unknown) (no (unknown) (unknown) Chief complaint: (units (unknown) date) Urogenital-Male unknown) (unknown) (no (unknown) (unknown) Chloride 104 (units (u nknown) date) (98-107) mmol/L unknown) (unknown) (no (unknown) (unknown) Course (units (unkno wn) date) unknown) (unknown) (no (unknown) (unknown) Creatinine 1.29 H (units (unknown) date) (0.66-1.25) mg/dL unknown) (unknown) (no (unknown) (unknown) : 1990 (units (unknown) date) Acct:[id number] unknown) (unknown) (no (unknown) (unknown) Date of Service: (units (unknown) date) 12/23/22 unknown) (unknown) (no (unknown) (unknown) Departure (units (unkn own) date) unknown) (unknown) (no (unknown) (unknown) Discharge Plan (units (unknown) date) unknown) (unknown) (no (unknown) (unknown) Discontinued (units (u nknown) date) Medications unknown) (unknown) (no (unknown) (unknown) Documented By: GC (units (unknown) date) unknown) (unknown) (no (unknown) (unknown) ED Orders (units (unkn own) date) unknown) (unknown) (no (unknown) (unknown) ER Physician: (units ( unknown) date) Nicole Gray unknown) D.O. (unknown) (no (unknown) (unknown) EXTREMITIES: (units (u nknown) date) Normal range of unknown) motion, no clubbing or edema. Neurovascularly (unknown) (no (unknown) (unknown) Emergency Report (units (unknown) date) unknown) (unknown) (no (unknown) (unknown) Eos # (Auto) 500 (units (unknown) date) H (0-450) /uL unknown) (unknown) (no (unknown) (unknown) Eos % (Auto) 4.8 (units (unknown) date) H (2-4) % unknown) (unknown) (no (unknown) (unknown) Esterase (units (unkno wn) date) unknown) (unknown) (no (unknown) (unknown) Estimated GFR > (units (unknown) date) 60 (>60) mL/min unknown) (unknown) (no (unknown) (unknown) Exam (units (unkno wn) date) unknown) (unknown) (no (unknown) (unknown) GENERAL: Alert (units (unknown) date) very pleasant unknown) 32-year-old male BMI 54 and in no acute distress. (unknown) (no (unknown) (unknown) : Right CVA (units ( unknown) date) tenderness unknown) (unknown) (no (unknown) (unknown) General (units (unkno wn) date) unknown) (unknown) (no (unknown) (unknown) Globulin 3.4 (units (u nknown) date) (1.7-4.1) g/dL unknown) (unknown) (no (unknown) (unknown) Glucose 106 H (units ( unknown) date) (70-100) mg/dL unknown) (unknown) (no (unknown) (unknown) HEENT: Head (units (un known) date) atraumatic,EOMI, unknown) pupils reactive, face symmetric, moist mucous (unknown) (no (unknown) (unknown) HPI - Male (units (unk nown) date) Genitourinary unknown) (unknown) (no (unknown) (unknown) HPI Narrative: (units (unknown) date) unknown) (unknown) (no (unknown) (unknown) Having some (units (un known) date) right-sided flank unknown) pain. Tonight the pain got significantly worse (unknown) (no (unknown) (unknown) Hct 42.5 (41-53) (units (unknown) date) % unknown) (unknown) (no (unknown) (unknown) Hgb 14.3 (units (unkno wn) date) (13.5-17.5) g/dL unknown) (unknown) (no (unknown) (unknown) History of (units (unk nown) date) Present Illness unknown) (unknown) (no (unknown) (unknown) Initial Vital (units ( unknown) date) Signs unknown) (unknown) (no (unknown) (unknown) Initial Vital (units ( unknown) date) Signs: unknown) (unknown) (no (unknown) (unknown) [facility] (units (unknown) date) [address] [place] [address] unknown) [place] [address] (unknown) (no (unknown) (unknown) Ketorolac (units (unkn own) date) Tromethamine unknown) (Ketorolac 30 Mg/Ml Vial) 15 mg IV NOW ONE (unknown) (no (unknown) (unknown) Lab Data (units (unkno wn) date) unknown) (unknown) (no (unknown) (unknown) Lab Results (units (un known) date) unknown) (unknown) (no (unknown) (unknown) Labs: (units (unkno wn) date) unknown) (unknown) (no (unknown) (unknown) Last Admin: (units (un known) date) 12/23/22 01:49 unknown) Dose: 15 mg (unknown) (no (unknown) (unknown) Lipase 75 (units (unkn own) date) (23-300) U/L unknown) (unknown) (no (unknown) (unknown) Lipase Stat (units (un known) date) unknown) (unknown) (no (unknown) (unknown) Lymph # (Auto) (units (unknown) date) 2600 ([id number]) unknown) /uL (unknown) (no (unknown) (unknown) Lymph % (Auto) (units (unknown) date) 25.0 (25-40) % unknown) (unknown) (no (unknown) (unknown) MCH 29.3 (26-34) (units (unknown) date) PG unknown) (unknown) (no (unknown) (unknown) MCHC 33.6 (30-36) (units (unknown) date) % unknown) (unknown) (no (unknown) (unknown) MCV 87.1 (80-100) (units (unknown) date) fL unknown) (unknown) (no (unknown) (unknown) MDM - Male (units (unk nown) date) Genitourinary unknown) (unknown) (no (unknown) (unknown) Medication (units (unk nown) date) Instructions unknown) Recorded (unknown) (no (unknown) (unknown) Mode of arrival: (units (unknown) date) Ambulatory unknown) (unknown) (no (unknown) (unknown) Holmes # (Auto) 900 (units (unknown) date) (0-900) /uL unknown) (unknown) (no (unknown) (unknown) Holmes % (Auto) 8.5 (units (unknown) date) (3-14) % unknown) (unknown) (no (unknown) (unknown) Holt sign no (units (unknown) date) right upper unknown) quadrant pain (unknown) (no (unknown) (unknown) NEUROLOGICAL: (units ( unknown) date) Alert and oriented unknown) x4. (unknown) (no (unknown) (unknown) Neut # (Auto) (units ( unknown) date) 6400 ([id number]) unknown) /uL (unknown) (no (unknown) (unknown) Neut % (Auto) (units ( unknown) date) 61.1 (50-75) % unknown) (unknown) (no (unknown) (unknown) No Action (units (unkn own) date) unknown) (unknown) (no (unknown) (unknown) No Known Drug (units ( unknown) date) Allergies Allergy unknown) Verified 05/18/22 17:32 (unknown) (no (unknown) (unknown) Ordered: (units (unkno wn) date) unknown) (unknown) (no (unknown) (unknown) Orders (units (unkno wn) date) unknown) (unknown) (no (unknown) (unknown) Oxygen Delivery (units (unknown) date) Method 12/23/22 unknown) 00:50 (unknown) (no (unknown) (unknown) Oxygen Delivery (units (unknown) date) Method Room Air unknown) (unknown) (no (unknown) (unknown) Oxygen Delivery (units (unknown) date) Method unknown) (unknown) (no (unknown) (unknown) Patient History (units (unknown) date) unknown) (unknown) (no (unknown) (unknown) Patient is a (units (u nknown) date) 32-year-old male unknown) with history of kidney stones, who presents with (unknown) (no (unknown) (unknown) Patient: (units (unkno wn) date) [facility] [place] MR#: unknown) [id number] (unknown) (no (unknown) (unknown) Plt Count 254 (units ( unknown) date) (150-400) X103/uL unknown) (unknown) (no (unknown) (unknown) Potassium 3.8 (units ( unknown) date) (3.4-5.1) mmol/L unknown) (unknown) (no (unknown) (unknown) Prescriptions: (units (unknown) date) unknown) (unknown) (no (unknown) (unknown) Previous Rx's (units ( unknown) date) unknown) (unknown) (no (unknown) (unknown) Pulse Oximetry 94 (units (unknown) date) unknown) (unknown) (no (unknown) (unknown) Pulse Oximetry 97 (units (unknown) date) 12/23/22 00:50 unknown) (unknown) (no (unknown) (unknown) Pulse Oximetry 97 (units (unknown) date) 97 97 unknown) (unknown) (no (unknown) (unknown) Pulse Oximetry 97 (units (unknown) date) 97 unknown) (unknown) (no (unknown) (unknown) Pulse Oximetry 97 (units (unknown) date) unknown) (unknown) (no (unknown) (unknown) Pulse Rate 86 (units ( unknown) date) unknown) (unknown) (no (unknown) (unknown) Pulse Rate 89 (units ( unknown) date) unknown) (unknown) (no (unknown) (unknown) Pulse Rate 91 H (units (unknown) date) 12/23/22 00:50 unknown) (unknown) (no (unknown) (unknown) Pulse Rate 91 H (units (unknown) date) 94 H 95 H unknown) (unknown) (no (unknown) (unknown) Pulse Rate 95 H (units (unknown) date) 105 H unknown) (unknown) (no (unknown) (unknown) RBC 4.88 (units (unkno wn) date) (4.5-5.9) X106/uL unknown) (unknown) (no (unknown) (unknown) RDW 13.1 (units (unkno wn) date) (11.6-14.8) % unknown) (unknown) (no (unknown) (unknown) RESPIRATORY: (units (u nknown) date) Breath sounds unknown) equal bilaterally, no wheezes rales or rhonchi. (unknown) (no (unknown) (unknown) ROS Unobtainable: (units (unknown) date) All systems unknown) reviewed + are unremarkable except as noted in HPI (unknown) (no (unknown) (unknown) Referrals: (units (unk nown) date) unknown) (unknown) (no (unknown) (unknown) Related Data (units (u nknown) date) unknown) (unknown) (no (unknown) (unknown) Respiratory Rate (units (unknown) date) 18 12/23/22 00:50 unknown) (unknown) (no (unknown) (unknown) Respiratory Rate (units (unknown) date) 18 unknown) (unknown) (no (unknown) (unknown) Respiratory Rate (units (unknown) date) unknown) (unknown) (no (unknown) (unknown) Review of Systems (units (unknown) date) unknown) (unknown) (no (unknown) (unknown) SKIN: Warm, dry, (units (unknown) date) no laceration, no unknown) petechiae, no rashes or lesions. (unknown) (no (unknown) (unknown) Signed By: (units (unk nown) date) unknown) (unknown) (no (unknown) (unknown) Smoking Status: (units (unknown) date) Never smoker unknown) (unknown) (no (unknown) (unknown) Social History (units (unknown) date) (Reviewed 12/23/22 unknown) @ 02:28 by Nicole Gray DO) (unknown) (no (unknown) (unknown) Sodium 141 (units (unk nown) date) (137-145) mmol/L unknown) (unknown) (no (unknown) (unknown) Source: patient (units (unknown) date) unknown) (unknown) (no (unknown) (unknown) Stated complaint: (units (unknown) date) rt. side back unknown) pain/abd. pain (unknown) (no (unknown) (unknown) Stop: 12/23/22 (units (unknown) date) 01:24 unknown) (unknown) (no (unknown) (unknown) Substance Use (units ( unknown) date) Type: does not use unknown) (unknown) (no (unknown) (unknown) Temperature 97.8 (units (unknown) date) F 12/23/22 00:50 unknown) (unknown) (no (unknown) (unknown) Temperature 97.8 (units (unknown) date) F unknown) (unknown) (no (unknown) (unknown) Temperature (units (un known) date) unknown) (unknown) (no (unknown) (unknown) Time Seen by (units (u nknown) date) Provider: 12/23/22 unknown) 01:23 (unknown) (no (unknown) (unknown) Total Bilirubin (units (unknown) date) 0.4 (0.2-1.3) unknown) mg/dL (unknown) (no (unknown) (unknown) Total Protein 7.5 (units (unknown) date) (6.3-8.2) g/dL unknown) (unknown) (no (unknown) (unknown) Ur Culture (units (unk nown) date) Indicated? Cult unknown) not indicated (unknown) (no (unknown) (unknown) Urine Bacteria (units (unknown) date) None seen (None) unknown) (unknown) (no (unknown) (unknown) Urine Dip (units (unkn own) date) unknown) (unknown) (no (unknown) (unknown) Urine Microscopic (units (unknown) date) Stat unknown) (unknown) (no (unknown) (unknown) Urine RBC (units (unkn own) date) 5-10/hpf H unknown) (0-5/HPF) (unknown) (no (unknown) (unknown) Urine Specific (units (unknown) date) [place] 1.025 unknown) (unknown) (no (unknown) (unknown) Urine WBC 0-1/hpf (units (unknown) date) (0-5/HPF) unknown) (unknown) (no (unknown) (unknown) Vital Signs - 8 (units (unknown) date) hr unknown) (unknown) (no (unknown) (unknown) Vital Signs (units (un known) date) unknown) (unknown) (no (unknown) (unknown) Vital signs: (units (u nknown) date) unknown) (unknown) (no (unknown) (unknown) WBC 10.5 (units (unkno wn) date) (4.5-11.0) X103/uL unknown) (unknown) (no (unknown) (unknown) Kathie Otero, (units (unknown) date) PA-C [Primary Care unknown) Provider] (unknown) (no (unknown) (unknown) [Embedded Image (units (unknown) date) Not Available] unknown) (unknown) (no (unknown) (unknown) alcohol intake (units (unknown) date) frequency: 0-2 unknown) drinks per day (unknown) (no (unknown) (unknown) amoxicillin 875 (units (unknown) date) mg-potassium 1 tab unknown) PO BID #20 tabs 05/18/22 (unknown) (no (unknown) (unknown) amoxicillin-pot (units (unknown) date) clavulanate unknown) 875-125 mg tablet (unknown) (no (unknown) (unknown) and below (units (unkn own) date) unknown) (unknown) (no (unknown) (unknown) clavulanate 125 (units (unknown) date) mg tablet unknown) (unknown) (no (unknown) (unknown) intact (units (unkno wn) date) unknown) (unknown) (no (unknown) (unknown) membranes (units (unkn own) date) unknown) (unknown) (no (unknown) (unknown) nausea but no (units ( unknown) date) significant unknown) vomiting. No fever. No chest pain or other symptoms. (unknown) (no (unknown) (unknown) normal. He denies (units (unknown) date) any painful unknown) frequent urination. He is having some mild (unknown) (no (unknown) (unknown) radiating down to (units (unknown) date) his groin. He was unknown) also noticing that his urine is darker than (unknown) (no (unknown) (unknown) right flank pain (units (unknown) date) and hematuria. He unknown) reports that it started about 2-3 days ago. Result panel 180 (unknown) (no (unknown) (unknown) (no value) (units (unk nown) date) unknown) (unknown) (no (unknown) (unknown) * Please follow-up (units (unknown) date) with your primary unknown) care provider in the next 2-3 days, you may (unknown) (no (unknown) (unknown) * What to do: (units ( unknown) date) Increase fluid unknown) intake, (unknown) (no (unknown) (unknown) * You've been (units ( unknown) date) diagnosed with unknown) kidney stone (unknown) (no (unknown) (unknown) -If you should (units (unknown) date) have fever, or unknown) pain is uncontrolled with medication at home or (unknown) (no (unknown) (unknown) 00:50 12/23/22 (units (unknown) date) unknown) (unknown) (no (unknown) (unknown) 00:56 12/23/22 (units (unknown) date) unknown) (unknown) (no (unknown) (unknown) 00:58 12/23/22 (units (unknown) date) unknown) (unknown) (no (unknown) (unknown) 00:58 (units (unkno wn) date) unknown) (unknown) (no (unknown) (unknown) 01:00 12/23/22 (units (unknown) date) unknown) (unknown) (no (unknown) (unknown) 01:10 01:40 01:40 (units (unknown) date) unknown) (unknown) (no (unknown) (unknown) 01:34 (units (unkno wn) date) unknown) (unknown) (no (unknown) (unknown) 01:42 12/23/22 (units (unknown) date) unknown) (unknown) (no (unknown) (unknown) 12/23/22 01:10 (units (unknown) date) unknown) (unknown) (no (unknown) (unknown) 12/23/22 01:36 (units (unknown) date) unknown) (unknown) (no (unknown) (unknown) 12/23/22 01:40 (units (unknown) date) unknown) (unknown) (no (unknown) (unknown) 12/23/22 12/23/22 (units (unknown) date) 12/23/22 unknown) Range/Units (unknown) (no (unknown) (unknown) 12/23/22 (units (unkno wn) date) unknown) (unknown) (no (unknown) (unknown) 02:00 (units (unkno wn) date) unknown) (unknown) (no (unknown) (unknown) 1 tab PO BID Qty: (units (unknown) date) 20 0RF unknown) (unknown) (no (unknown) (unknown) 1 tab PO Q6H PRN (units (unknown) date) (Reason: pain) unknown) Qty: 10 0RF (unknown) (no (unknown) (unknown) 1. You have been (units (unknown) date) prescribed unknown) narcotic medications, it does have (unknown) (no (unknown) (unknown) 2. Please (units (unkn own) date) understand that we unknown) cannot provide further refills of narcotics, (unknown) (no (unknown) (unknown) 3. While on these (units (unknown) date) medications you unknown) cannot drive or operate heavy machinery. (unknown) (no (unknown) (unknown) 4 mg PO Q8H PRN (units (unknown) date) (Reason: nausea unknown) and vomiting) Qty: 10 0RF (unknown) (no (unknown) (unknown) 4. You cannot (units ( unknown) date) sign legal unknown) documents or perform any duties such as this. (unknown) (no (unknown) (unknown) 5. As long as (units ( unknown) date) you're taking unknown) opiate pain medications he should also be taking a (unknown) (no (unknown) (unknown) [address] (units (unkno wn) date) unknown) (unknown) (no (unknown) (unknown) ABDOMEN: Soft, (units (unknown) date) mild right lower unknown) quadrant pain no guarding no rebound negative (unknown) (no (unknown) (unknown) ALT 35 (<50) IU/L (units (unknown) date) unknown) (unknown) (no (unknown) (unknown) AST 29 (17-59) (units (unknown) date) IU/L unknown) (unknown) (no (unknown) (unknown) Activity (units (unkno wn) date) Restrictions/Addit unknown) ional Instructions: (unknown) (no (unknown) (unknown) Age/Sex: 32 / M (units (unknown) date) unknown) (unknown) (no (unknown) (unknown) Albumin 4.1 (units (un known) date) (3.5-5.0) g/dL unknown) (unknown) (no (unknown) (unknown) Albumin/Globulin (units (unknown) date) Ratio 1.2 unknown) (1.0-2.8) (unknown) (no (unknown) (unknown) Alkaline (units (unkno wn) date) Phosphatase 74 unknown) (38-126) U/L (unknown) (no (unknown) (unknown) Allergies (units (unkn own) date) unknown) (unknown) (no (unknown) (unknown) Allergy/AdvReac (units (unknown) date) Type Severity unknown) Reaction Status Date / Time (unknown) (no (unknown) (unknown) BUN 21 H (9-20) (units (unknown) date) mg/dL unknown) (unknown) (no (unknown) (unknown) BUN/Creatinine (units (unknown) date) Ratio 16.3 (6-22) unknown) (unknown) (no (unknown) (unknown) Baso # (Auto) 100 (units (unknown) date) (0-100) /uL unknown) (unknown) (no (unknown) (unknown) Baso % (Auto) 0.6 (units (unknown) date) (0-2) % unknown) (unknown) (no (unknown) (unknown) Bedside Urine (units ( unknown) date) Bilirubin - unknown) Negative (unknown) (no (unknown) (unknown) Bedside Urine (units ( unknown) date) Glucose Negative unknown) (unknown) (no (unknown) (unknown) Bedside Urine (units ( unknown) date) Ketone - Negative unknown) (unknown) (no (unknown) (unknown) Bedside Urine (units ( unknown) date) Leukocytes - unknown) Negative (unknown) (no (unknown) (unknown) Bedside Urine (units ( unknown) date) Nitrite - Negative unknown) (unknown) (no (unknown) (unknown) Bedside Urine (units ( unknown) date) Occult Blood unknown) (unknown) (no (unknown) (unknown) Bedside Urine (units ( unknown) date) Protein + 30 unknown) (unknown) (no (unknown) (unknown) Bedside Urine (units ( unknown) date) Urobilinogen - unknown) Negative (unknown) (no (unknown) (unknown) Bedside Urine pH (units (unknown) date) 6.0 unknown) (unknown) (no (unknown) (unknown) Blood Pressure (units (unknown) date) 128/82 12/23/22 unknown) 00:50 (unknown) (no (unknown) (unknown) Blood Pressure (units (unknown) date) 128/82 unknown) (unknown) (no (unknown) (unknown) Blood Pressure (units (unknown) date) 141/87 H 135/82 unknown) (unknown) (no (unknown) (unknown) Blood Pressure (units (unknown) date) unknown) (unknown) (no (unknown) (unknown) CARDIOVASCULAR: (units (unknown) date) Regular rate and unknown) rhythm without murmurs, rubs or gallops. (unknown) (no (unknown) (unknown) CBC Auto Diff (units ( unknown) date) [Complete Blood unknown) Count AUTO DIFF] Stat (unknown) (no (unknown) (unknown) CMP (units (unkno wn) date) [Comprehensive unknown) Metabolic Panel] Stat (unknown) (no (unknown) (unknown) CONTROLLED (units (unk nown) date) SUBSTANCE unknown) DISCHARGE (Narcotoic/benzodi azepine) (unknown) (no (unknown) (unknown) CT kidney ureter (units (unknown) date) bladder (KUB) Stat unknown) (unknown) (no (unknown) (unknown) Calcium 9.1 (units (un known) date) (8.4-10.2) mg/dL unknown) (unknown) (no (unknown) (unknown) Carbon Dioxide 30 (units (unknown) date) (22-32) mmol/L unknown) (unknown) (no (unknown) (unknown) Chief complaint: (units (unknown) date) Urogenital-Male unknown) (unknown) (no (unknown) (unknown) Chloride 104 (units (u nknown) date) (98-107) mmol/L unknown) (unknown) (no (unknown) (unknown) Clinical (units (unkno wn) date) Impression: unknown) (unknown) (no (unknown) (unknown) Course (units (unkno wn) date) unknown) (unknown) (no (unknown) (unknown) Creatinine 1.29 H (units (unknown) date) (0.66-1.25) mg/dL unknown) (unknown) (no (unknown) (unknown) : 1990 (units (unknown) date) Acct:[id number] unknown) (unknown) (no (unknown) (unknown) Date of Service: (units (unknown) date) 12/23/22 unknown) (unknown) (no (unknown) (unknown) Departure (units (unkn own) date) unknown) (unknown) (no (unknown) (unknown) Discharge Plan (units (unknown) date) unknown) (unknown) (no (unknown) (unknown) Discontinued (units (u nknown) date) Medications unknown) (unknown) (no (unknown) (unknown) Documented By: GC (units (unknown) date) unknown) (unknown) (no (unknown) (unknown) ED Orders (units (unkn own) date) unknown) (unknown) (no (unknown) (unknown) ER Physician: (units ( unknown) date) Nicole Gray unknown) D.O. (unknown) (no (unknown) (unknown) EXTREMITIES: (units (u nknown) date) Normal range of unknown) motion, no clubbing or edema. Neurovascularly (unknown) (no (unknown) (unknown) Emergency Report (units (unknown) date) unknown) (unknown) (no (unknown) (unknown) Eos # (Auto) 500 (units (unknown) date) H (0-450) /uL unknown) (unknown) (no (unknown) (unknown) Eos % (Auto) 4.8 (units (unknown) date) H (2-4) % unknown) (unknown) (no (unknown) (unknown) Esterase (units (unkno wn) date) unknown) (unknown) (no (unknown) (unknown) Estimated GFR > (units (unknown) date) 60 (>60) mL/min unknown) (unknown) (no (unknown) (unknown) Exam (units (unkno wn) date) unknown) (unknown) (no (unknown) (unknown) GENERAL: Alert (units (unknown) date) very pleasant unknown) 32-year-old male BMI 54 and in no acute distress. (unknown) (no (unknown) (unknown) : Right CVA (units ( unknown) date) tenderness unknown) (unknown) (no (unknown) (unknown) General (units (unkno wn) date) unknown) (unknown) (no (unknown) (unknown) Globulin 3.4 (units (u nknown) date) (1.7-4.1) g/dL unknown) (unknown) (no (unknown) (unknown) Glucose 106 H (units ( unknown) date) (70-100) mg/dL unknown) (unknown) (no (unknown) (unknown) HEENT: Head (units (un known) date) atraumatic,EOMI, unknown) pupils reactive, face symmetric, moist mucous (unknown) (no (unknown) (unknown) HPI - Male (units (unk nown) date) Genitourinary unknown) (unknown) (no (unknown) (unknown) HPI Narrative: (units (unknown) date) unknown) (unknown) (no (unknown) (unknown) Having some (units (un known) date) right-sided flank unknown) pain. Tonight the pain got significantly worse (unknown) (no (unknown) (unknown) Hct 42.5 (41-53) (units (unknown) date) % unknown) (unknown) (no (unknown) (unknown) Hgb 14.3 (units (unkno wn) date) (13.5-17.5) g/dL unknown) (unknown) (no (unknown) (unknown) History of (units (unk nown) date) Present Illness unknown) (unknown) (no (unknown) (unknown) Initial Vital (units ( unknown) date) Signs unknown) (unknown) (no (unknown) (unknown) Initial Vital (units ( unknown) date) Signs: unknown) (unknown) (no (unknown) (unknown) Instructions: DI (units (unknown) date) for Kidney unknown) Infection (unknown) (no (unknown) (unknown) [facility] (units (unknown) date) [address] unknown) [place] [address] (unknown) (no (unknown) (unknown) Ketorolac (units (unkn own) date) Tromethamine unknown) (Ketorolac 30 Mg/Ml Vial) 15 mg IV NOW ONE (unknown) (no (unknown) (unknown) Kidney calculi (units (unknown) date) unknown) (unknown) (no (unknown) (unknown) Lab Data (units (unkno wn) date) unknown) (unknown) (no (unknown) (unknown) Lab Results (units (un known) date) unknown) (unknown) (no (unknown) (unknown) Labs: (units (unkno wn) date) unknown) (unknown) (no (unknown) (unknown) Last Admin: (units (un known) date) 12/23/22 01:49 unknown) Dose: 15 mg (unknown) (no (unknown) (unknown) Lipase 75 (units (unkn own) date) (23-300) U/L unknown) (unknown) (no (unknown) (unknown) Lipase Stat (units (un known) date) unknown) (unknown) (no (unknown) (unknown) Lymph # (Auto) (units (unknown) date) 2600 ([id number]) unknown) /uL (unknown) (no (unknown) (unknown) Lymph % (Auto) (units (unknown) date) 25.0 (25-40) % unknown) (unknown) (no (unknown) (unknown) MCH 29.3 (26-34) (units (unknown) date) PG unknown) (unknown) (no (unknown) (unknown) MCHC 33.6 (30-36) (units (unknown) date) % unknown) (unknown) (no (unknown) (unknown) MCV 87.1 (80-100) (units (unknown) date) fL unknown) (unknown) (no (unknown) (unknown) MDM - Male (units (unk nown) date) Genitourinary unknown) (unknown) (no (unknown) (unknown) MEDICATIONS (units (un known) date) unknown) (unknown) (no (unknown) (unknown) Medication (units (unk nown) date) Instructions unknown) Recorded (unknown) (no (unknown) (unknown) Mode of arrival: (units (unknown) date) Ambulatory unknown) (unknown) (no (unknown) (unknown) Holmes # (Auto) 900 (units (unknown) date) (0-900) /uL unknown) (unknown) (no (unknown) (unknown) Holmes % (Auto) 8.5 (units (unknown) date) (3-14) % unknown) (unknown) (no (unknown) (unknown) Holt sign no (units (unknown) date) right upper unknown) quadrant pain (unknown) (no (unknown) (unknown) NEUROLOGICAL: (units ( unknown) date) Alert and oriented unknown) x4. (unknown) (no (unknown) (unknown) Neut # (Auto) (units ( unknown) date) 6400 ([id number]) unknown) /uL (unknown) (no (unknown) (unknown) Neut % (Auto) (units ( unknown) date) 61.1 (50-75) % unknown) (unknown) (no (unknown) (unknown) New (units (unkno wn) date) unknown) (unknown) (no (unknown) (unknown) No Action (units (unkn own) date) unknown) (unknown) (no (unknown) (unknown) No Known Drug (units ( unknown) date) Allergies Allergy unknown) Verified 05/18/22 17:32 (unknown) (no (unknown) (unknown) Ordered: (units (unkno wn) date) unknown) (unknown) (no (unknown) (unknown) Orders (units (unkno wn) date) unknown) (unknown) (no (unknown) (unknown) Oxygen Delivery (units (unknown) date) Method 12/23/22 unknown) 00:50 (unknown) (no (unknown) (unknown) Oxygen Delivery (units (unknown) date) Method Room Air unknown) (unknown) (no (unknown) (unknown) Oxygen Delivery (units (unknown) date) Method unknown) (unknown) (no (unknown) (unknown) Patient (units (unkno wn) date) Disposition: Home unknown) (unknown) (no (unknown) (unknown) Patient History (units (unknown) date) unknown) (unknown) (no (unknown) (unknown) Patient is a (units (u nknown) date) 32-year-old male unknown) with history of kidney stones, who presents with (unknown) (no (unknown) (unknown) Patient: (units (unkno wn) date) Chapo Davis MR#: unknown) [id number] (unknown) (no (unknown) (unknown) Plt Count 254 (units ( unknown) date) (150-400) X103/uL unknown) (unknown) (no (unknown) (unknown) Potassium 3.8 (units ( unknown) date) (3.4-5.1) mmol/L unknown) (unknown) (no (unknown) (unknown) Prescriptions: (units (unknown) date) unknown) (unknown) (no (unknown) (unknown) Previous Rx's (units ( unknown) date) unknown) (unknown) (no (unknown) (unknown) Pulse Oximetry 94 (units (unknown) date) unknown) (unknown) (no (unknown) (unknown) Pulse Oximetry 97 (units (unknown) date) 12/23/22 00:50 unknown) (unknown) (no (unknown) (unknown) Pulse Oximetry 97 (units (unknown) date) 97 97 unknown) (unknown) (no (unknown) (unknown) Pulse Oximetry 97 (units (unknown) date) 97 unknown) (unknown) (no (unknown) (unknown) Pulse Oximetry 97 (units (unknown) date) unknown) (unknown) (no (unknown) (unknown) Pulse Rate 86 (units ( unknown) date) unknown) (unknown) (no (unknown) (unknown) Pulse Rate 89 (units ( unknown) date) unknown) (unknown) (no (unknown) (unknown) Pulse Rate 91 H (units (unknown) date) 12/23/22 00:50 unknown) (unknown) (no (unknown) (unknown) Pulse Rate 91 H (units (unknown) date) 94 H 95 H unknown) (unknown) (no (unknown) (unknown) Pulse Rate 95 H (units (unknown) date) 105 H unknown) (unknown) (no (unknown) (unknown) RBC 4.88 (units (unkno wn) date) (4.5-5.9) X106/uL unknown) (unknown) (no (unknown) (unknown) RDW 13.1 (units (unkno wn) date) (11.6-14.8) % unknown) (unknown) (no (unknown) (unknown) RESPIRATORY: (units (u nknown) date) Breath sounds unknown) equal bilaterally, no wheezes rales or rhonchi. (unknown) (no (unknown) (unknown) ROS Unobtainable: (units (unknown) date) All systems unknown) reviewed + are unremarkable except as noted in HPI (unknown) (no (unknown) (unknown) Referrals: (units (unk nown) date) unknown) (unknown) (no (unknown) (unknown) Related Data (units (u nknown) date) unknown) (unknown) (no (unknown) (unknown) Respiratory Rate (units (unknown) date) 18 12/23/22 00:50 unknown) (unknown) (no (unknown) (unknown) Respiratory Rate (units (unknown) date) 18 unknown) (unknown) (no (unknown) (unknown) Respiratory Rate (units (unknown) date) unknown) (unknown) (no (unknown) (unknown) Review of Systems (units (unknown) date) unknown) (unknown) (no (unknown) (unknown) SKIN: Warm, dry, (units (unknown) date) no laceration, no unknown) petechiae, no rashes or lesions. (unknown) (no (unknown) (unknown) Signed By: (units (unk nown) date) unknown) (unknown) (no (unknown) (unknown) Smoking Status: (units (unknown) date) Never smoker unknown) (unknown) (no (unknown) (unknown) Social History (units (unknown) date) (Reviewed 12/23/22 unknown) @ 02:28 by Nicole Gray DO) (unknown) (no (unknown) (unknown) Sodium 141 (units (unk nown) date) (137-145) mmol/L unknown) (unknown) (no (unknown) (unknown) Source: patient (units (unknown) date) unknown) (unknown) (no (unknown) (unknown) Stand Alone (units (un known) date) Forms: Patient unknown) Portal/API (unknown) (no (unknown) (unknown) Stated complaint: (units (unknown) date) rt. side back unknown) pain/abd. pain (unknown) (no (unknown) (unknown) Stop: 12/23/22 (units (unknown) date) 01:24 unknown) (unknown) (no (unknown) (unknown) Substance Use (units ( unknown) date) Type: does not use unknown) (unknown) (no (unknown) (unknown) Take Motrin 600 (units (unknown) date) mg every 8 hours unknown) as needed for pain (unknown) (no (unknown) (unknown) Take Crivitz every (units (unknown) date) 6 hours if needed unknown) for severe pain (unknown) (no (unknown) (unknown) Take Zofran every (units (unknown) date) 4-6 hours if unknown) needed for nausea (unknown) (no (unknown) (unknown) Temperature 97.8 (units (unknown) date) F 12/23/22 00:50 unknown) (unknown) (no (unknown) (unknown) Temperature 97.8 (units (unknown) date) F unknown) (unknown) (no (unknown) (unknown) Temperature (units (un known) date) unknown) (unknown) (no (unknown) (unknown) Time Seen by (units (u nknown) date) Provider: 12/23/22 unknown) 01:23 (unknown) (no (unknown) (unknown) Total Bilirubin (units (unknown) date) 0.4 (0.2-1.3) unknown) mg/dL (unknown) (no (unknown) (unknown) Total Protein 7.5 (units (unknown) date) (6.3-8.2) g/dL unknown) (unknown) (no (unknown) (unknown) Ur Culture (units (unk nown) date) Indicated? Cult unknown) not indicated (unknown) (no (unknown) (unknown) Urine Bacteria (units (unknown) date) None seen (None) unknown) (unknown) (no (unknown) (unknown) Urine Dip (units (unkn own) date) unknown) (unknown) (no (unknown) (unknown) Urine Microscopic (units (unknown) date) Stat unknown) (unknown) (no (unknown) (unknown) Urine RBC (units (unkn own) date) 5-10/hpf H unknown) (0-5/HPF) (unknown) (no (unknown) (unknown) Urine Specific (units (unknown) date) [place] 1.025 unknown) (unknown) (no (unknown) (unknown) Urine WBC 0-1/hpf (units (unknown) date) (0-5/HPF) unknown) (unknown) (no (unknown) (unknown) Vital Signs - 8 (units (unknown) date) hr unknown) (unknown) (no (unknown) (unknown) Vital Signs (units (un known) date) unknown) (unknown) (no (unknown) (unknown) Vital signs: (units (u nknown) date) unknown) (unknown) (no (unknown) (unknown) WBC 10.5 (units (unkno wn) date) (4.5-11.0) X103/uL unknown) (unknown) (no (unknown) (unknown) Kathie Otero, (units (unknown) date) PA-C [Primary Care unknown) Provider] (unknown) (no (unknown) (unknown) [Embedded Image (units (unknown) date) Not Available] unknown) (unknown) (no (unknown) (unknown) acetaminophen/Tyl (units (unknown) date) enol/paracetamol unknown) in it so do not take extra Tylenol or Tylenol (unknown) (no (unknown) (unknown) alcohol intake (units (unknown) date) frequency: 0-2 unknown) drinks per day (unknown) (no (unknown) (unknown) amoxicillin 875 (units (unknown) date) mg-potassium 1 tab unknown) PO BID #20 tabs 05/18/22 (unknown) (no (unknown) (unknown) amoxicillin-pot (units (unknown) date) clavulanate unknown) 875-125 mg tablet (unknown) (no (unknown) (unknown) and below (units (unkn own) date) unknown) (unknown) (no (unknown) (unknown) any other (units (unkn own) date) concerning unknown) symptoms return to ER for further evaluation (unknown) (no (unknown) (unknown) benzodiazepines (units (unknown) date) or controlled unknown) substances through the ED and her pain management (unknown) (no (unknown) (unknown) clavulanate 125 (units (unknown) date) mg tablet unknown) (unknown) (no (unknown) (unknown) constipation. (units ( unknown) date) unknown) (unknown) (no (unknown) (unknown) containing (units (unk nown) date) products unknown) (unknown) (no (unknown) (unknown) hydrocodone 5 (units ( unknown) date) mg-acetaminophen unknown) 325 1 tab PO Q6H PRN pain #10 tabs 12/23/22 (unknown) (no (unknown) (unknown) hydrocodone-aceta (units (unknown) date) minophen 5-325 mg unknown) tablet (unknown) (no (unknown) (unknown) intact (units (unkno wn) date) unknown) (unknown) (no (unknown) (unknown) membranes (units (unkn own) date) unknown) (unknown) (no (unknown) (unknown) mg tablet (units (unkn own) date) unknown) (unknown) (no (unknown) (unknown) nausea but no (units ( unknown) date) significant unknown) vomiting. No fever. No chest pain or other symptoms. (unknown) (no (unknown) (unknown) normal. He denies (units (unknown) date) any painful unknown) frequent urination. He is having some mild (unknown) (no (unknown) (unknown) ondansetron 4 mg (units (unknown) date) disintegrating 4 unknown) mg PO Q8H PRN nausea and 12/23/22 (unknown) (no (unknown) (unknown) ondansetron 4 mg (units (unknown) date) tablet,disintegrat unknown) ing (unknown) (no (unknown) (unknown) radiating down to (units (unknown) date) his groin. He was unknown) also noticing that his urine is darker than (unknown) (no (unknown) (unknown) require urology (units (unknown) date) consultation unknown) please discuss this with (unknown) (no (unknown) (unknown) right flank pain (units (unknown) date) and hematuria. He unknown) reports that it started about 2-3 days ago. (unknown) (no (unknown) (unknown) stool softener (units (unknown) date) such as Colace, unknown) Dulcolax, MiraLAX or prune juice, to help avoid (unknown) (no (unknown) (unknown) tablet vomiting (units (unknown) date) #10 tabs unknown) (unknown) (no (unknown) (unknown) will need to be (units (unknown) date) through your unknown) provider. Result panel 181 (unknown) (no (unknown) (unknown) (no value) (units (unk nown) date) unknown) (unknown) (no (unknown) (unknown) * Please follow-up (units (unknown) date) with your primary unknown) care provider in the next 2-3 days, you may (unknown) (no (unknown) (unknown) * What to do: (units ( unknown) date) Increase fluid unknown) intake, (unknown) (no (unknown) (unknown) * You've been (units ( unknown) date) diagnosed with unknown) kidney stone (unknown) (no (unknown) (unknown) -If you should (units (unknown) date) have fever, or unknown) pain is uncontrolled with medication at home or (unknown) (no (unknown) (unknown) 00:50 12/23/22 (units (unknown) date) unknown) (unknown) (no (unknown) (unknown) 00:56 12/23/22 (units (unknown) date) unknown) (unknown) (no (unknown) (unknown) 00:58 12/23/22 (units (unknown) date) unknown) (unknown) (no (unknown) (unknown) 00:58 (units (unkno wn) date) unknown) (unknown) (no (unknown) (unknown) 01:00 12/23/22 (units (unknown) date) unknown) (unknown) (no (unknown) (unknown) 01:10 01:40 01:40 (units (unknown) date) unknown) (unknown) (no (unknown) (unknown) 01:34 (units (unkno wn) date) unknown) (unknown) (no (unknown) (unknown) 01:42 12/23/22 (units (unknown) date) unknown) (unknown) (no (unknown) (unknown) 12/23/22 01:10 (units (unknown) date) unknown) (unknown) (no (unknown) (unknown) 12/23/22 01:36 (units (unknown) date) unknown) (unknown) (no (unknown) (unknown) 12/23/22 01:40 (units (unknown) date) unknown) (unknown) (no (unknown) (unknown) 12/23/22 12/23/22 (units (unknown) date) 12/23/22 unknown) Range/Units (unknown) (no (unknown) (unknown) 12/23/22 (units (unkno wn) date) unknown) (unknown) (no (unknown) (unknown) 02:00 (units (unkno wn) date) unknown) (unknown) (no (unknown) (unknown) 1 tab PO BID Qty: (units (unknown) date) 20 0RF unknown) (unknown) (no (unknown) (unknown) 1 tab PO Q6H PRN (units (unknown) date) (Reason: pain) unknown) Qty: 10 0RF (unknown) (no (unknown) (unknown) 1. You have been (units (unknown) date) prescribed unknown) narcotic medications, it does have (unknown) (no (unknown) (unknown) 2. Please (units (unkn own) date) understand that we unknown) cannot provide further refills of narcotics, (unknown) (no (unknown) (unknown) 3. While on these (units (unknown) date) medications you unknown) cannot drive or operate heavy machinery. (unknown) (no (unknown) (unknown) 4 mg PO Q8H PRN (units (unknown) date) (Reason: nausea unknown) and vomiting) Qty: 10 0RF (unknown) (no (unknown) (unknown) 4. You cannot (units ( unknown) date) sign legal unknown) documents or perform any duties such as this. (unknown) (no (unknown) (unknown) 5. As long as (units ( unknown) date) you're taking unknown) opiate pain medications he should also be taking a (unknown) (no (unknown) (unknown) [id number] (units (unkno wn) date) unknown) (unknown) (no (unknown) (unknown) ABDOMEN: Soft, (units (unknown) date) mild right lower unknown) quadrant pain no guarding no rebound negative (unknown) (no (unknown) (unknown) ALT 35 (<50) IU/L (units (unknown) date) unknown) (unknown) (no (unknown) (unknown) AST 29 (17-59) (units (unknown) date) IU/L unknown) (unknown) (no (unknown) (unknown) Activity (units (unkno wn) date) Restrictions/Addit unknown) ional Instructions: (unknown) (no (unknown) (unknown) Age/Sex: 32 / M (units (unknown) date) unknown) (unknown) (no (unknown) (unknown) Albumin 4.1 (units (un known) date) (3.5-5.0) g/dL unknown) (unknown) (no (unknown) (unknown) Albumin/Globulin (units (unknown) date) Ratio 1.2 unknown) (1.0-2.8) (unknown) (no (unknown) (unknown) Alkaline (units (unkno wn) date) Phosphatase 74 unknown) (38-126) U/L (unknown) (no (unknown) (unknown) Allergies (units (unkn own) date) unknown) (unknown) (no (unknown) (unknown) Allergy/AdvReac (units (unknown) date) Type Severity unknown) Reaction Status Date / Time (unknown) (no (unknown) (unknown) BUN 21 H (9-20) (units (unknown) date) mg/dL unknown) (unknown) (no (unknown) (unknown) BUN/Creatinine (units (unknown) date) Ratio 16.3 (6-22) unknown) (unknown) (no (unknown) (unknown) Baso # (Auto) 100 (units (unknown) date) (0-100) /uL unknown) (unknown) (no (unknown) (unknown) Baso % (Auto) 0.6 (units (unknown) date) (0-2) % unknown) (unknown) (no (unknown) (unknown) Bedside Urine (units ( unknown) date) Bilirubin - unknown) Negative (unknown) (no (unknown) (unknown) Bedside Urine (units ( unknown) date) Glucose Negative unknown) (unknown) (no (unknown) (unknown) Bedside Urine (units ( unknown) date) Ketone - Negative unknown) (unknown) (no (unknown) (unknown) Bedside Urine (units ( unknown) date) Leukocytes - unknown) Negative (unknown) (no (unknown) (unknown) Bedside Urine (units ( unknown) date) Nitrite - Negative unknown) (unknown) (no (unknown) (unknown) Bedside Urine (units ( unknown) date) Occult Blood unknown) (unknown) (no (unknown) (unknown) Bedside Urine (units ( unknown) date) Protein + 30 unknown) (unknown) (no (unknown) (unknown) Bedside Urine (units ( unknown) date) Urobilinogen - unknown) Negative (unknown) (no (unknown) (unknown) Bedside Urine pH (units (unknown) date) 6.0 unknown) (unknown) (no (unknown) (unknown) Blood Pressure (units (unknown) date) 128/82 12/23/22 unknown) 00:50 (unknown) (no (unknown) (unknown) Blood Pressure (units (unknown) date) 128/82 unknown) (unknown) (no (unknown) (unknown) Blood Pressure (units (unknown) date) 141/87 H 135/82 unknown) (unknown) (no (unknown) (unknown) Blood Pressure (units (unknown) date) unknown) (unknown) (no (unknown) (unknown) CARDIOVASCULAR: (units (unknown) date) Regular rate and unknown) rhythm without murmurs, rubs or gallops. (unknown) (no (unknown) (unknown) CBC Auto Diff (units ( unknown) date) [Complete Blood unknown) Count AUTO DIFF] Stat (unknown) (no (unknown) (unknown) CMP (units (unkno wn) date) [Comprehensive unknown) Metabolic Panel] Stat (unknown) (no (unknown) (unknown) CONTROLLED (units (unk nown) date) SUBSTANCE unknown) DISCHARGE (Narcotoic/benzodi azepine) (unknown) (no (unknown) (unknown) CT kidney ureter (units (unknown) date) bladder (KUB) Stat unknown) (unknown) (no (unknown) (unknown) Calcium 9.1 (units (un known) date) (8.4-10.2) mg/dL unknown) (unknown) (no (unknown) (unknown) Carbon Dioxide 30 (units (unknown) date) (22-32) mmol/L unknown) (unknown) (no (unknown) (unknown) Chief complaint: (units (unknown) date) Urogenital-Male unknown) (unknown) (no (unknown) (unknown) Chloride 104 (units (u nknown) date) (98-107) mmol/L unknown) (unknown) (no (unknown) (unknown) Clinical (units (o wn) date) Impression: unknown) (unknown) (no (unknown) (unknown) Course (units (unkno wn) date) unknown) (unknown) (no (unknown) (unknown) Creatinine 1.29 H (units (unknown) date) (0.66-1.25) mg/dL unknown) (unknown) (no (unknown) (unknown) : 1990 (units (unknown) date) Acct:[id number] unknown) (unknown) (no (unknown) (unknown) Date of Service: (units (unknown) date) 12/23/22 unknown) (unknown) (no (unknown) (unknown) Departure (units (unkn own) date) unknown) (unknown) (no (unknown) (unknown) Discharge Plan (units (unknown) date) unknown) (unknown) (no (unknown) (unknown) Discontinued (units (u nknown) date) Medications unknown) (unknown) (no (unknown) (unknown) Documented By: GC (units (unknown) date) unknown) (unknown) (no (unknown) (unknown) ED Orders (units (unkn own) date) unknown) (unknown) (no (unknown) (unknown) ER Physician: (units ( unknown) date) Nicole Gray unknown) D.O. (unknown) (no (unknown) (unknown) EXTREMITIES: (units (u nknown) date) Normal range of unknown) motion, no clubbing or edema. Neurovascularly (unknown) (no (unknown) (unknown) Emergency Report (units (unknown) date) unknown) (unknown) (no (unknown) (unknown) Eos # (Auto) 500 (units (unknown) date) H (0-450) /uL unknown) (unknown) (no (unknown) (unknown) Eos % (Auto) 4.8 (units (unknown) date) H (2-4) % unknown) (unknown) (no (unknown) (unknown) Esterase (units (unkno wn) date) unknown) (unknown) (no (unknown) (unknown) Estimated GFR > (units (unknown) date) 60 (>60) mL/min unknown) (unknown) (no (unknown) (unknown) Exam (units (unkno wn) date) unknown) (unknown) (no (unknown) (unknown) GENERAL: Alert (units (unknown) date) very pleasant unknown) 32-year-old male BMI 54 and in no acute distress. (unknown) (no (unknown) (unknown) : Right CVA (units ( unknown) date) tenderness unknown) (unknown) (no (unknown) (unknown) General (units (unkno wn) date) unknown) (unknown) (no (unknown) (unknown) Globulin 3.4 (units (u nknown) date) (1.7-4.1) g/dL unknown) (unknown) (no (unknown) (unknown) Glucose 106 H (units ( unknown) date) (70-100) mg/dL unknown) (unknown) (no (unknown) (unknown) HEENT: Head (units (un known) date) atraumatic,EOMI, unknown) pupils reactive, face symmetric, moist mucous (unknown) (no (unknown) (unknown) HPI - Male (units (unk nown) date) Genitourinary unknown) (unknown) (no (unknown) (unknown) HPI Narrative: (units (unknown) date) unknown) (unknown) (no (unknown) (unknown) Having some (units (un known) date) right-sided flank unknown) pain. Tonight the pain got significantly worse (unknown) (no (unknown) (unknown) Hct 42.5 (41-53) (units (unknown) date) % unknown) (unknown) (no (unknown) (unknown) Hgb 14.3 (units (unkno wn) date) (13.5-17.5) g/dL unknown) (unknown) (no (unknown) (unknown) History of (units (unk nown) date) Present Illness unknown) (unknown) (no (unknown) (unknown) Initial Vital (units ( unknown) date) Signs unknown) (unknown) (no (unknown) (unknown) Initial Vital (units ( unknown) date) Signs: unknown) (unknown) (no (unknown) (unknown) Instructions: DI (units (unknown) date) for Kidney unknown) Infection (unknown) (no (unknown) (unknown) [facility] (units (unknown) date) [address] [place] [address] Street unknown) [place] [address] (unknown) (no (unknown) (unknown) Ketorolac (units (unkn own) date) Tromethamine unknown) (Ketorolac 30 Mg/Ml Vial) 15 mg IV NOW ONE (unknown) (no (unknown) (unknown) Kidney calculi (units (unknown) date) unknown) (unknown) (no (unknown) (unknown) Lab Data (units (unkno wn) date) unknown) (unknown) (no (unknown) (unknown) Lab Results (units (un known) date) unknown) (unknown) (no (unknown) (unknown) Labs: (units (unkno wn) date) unknown) (unknown) (no (unknown) (unknown) Last Admin: (units (un known) date) 12/23/22 01:49 unknown) Dose: 15 mg (unknown) (no (unknown) (unknown) Lipase 75 (units (unkn own) date) (23-300) U/L unknown) (unknown) (no (unknown) (unknown) Lipase Stat (units (un known) date) unknown) (unknown) (no (unknown) (unknown) Lymph # (Auto) (units (unknown) date) 2600 ([id number]) unknown) /uL (unknown) (no (unknown) (unknown) Lymph % (Auto) (units (unknown) date) 25.0 (25-40) % unknown) (unknown) (no (unknown) (unknown) MCH 29.3 (26-34) (units (unknown) date) PG unknown) (unknown) (no (unknown) (unknown) MCHC 33.6 (30-36) (units (unknown) date) % unknown) (unknown) (no (unknown) (unknown) MCV 87.1 (80-100) (units (unknown) date) fL unknown) (unknown) (no (unknown) (unknown) MDM - Male (units (unk nown) date) Genitourinary unknown) (unknown) (no (unknown) (unknown) MEDICATIONS (units (un known) date) unknown) (unknown) (no (unknown) (unknown) Medication (units (unk nown) date) Instructions unknown) Recorded (unknown) (no (unknown) (unknown) Mode of arrival: (units (unknown) date) Ambulatory unknown) (unknown) (no (unknown) (unknown) [place] # (Auto) 900 (units (unknown) date) (0-900) /uL unknown) (unknown) (no (unknown) (unknown) [place] % (Auto) 8.5 (units (unknown) date) (3-14) % unknown) (unknown) (no (unknown) (unknown) Holt sign no (units (unknown) date) right upper unknown) quadrant pain (unknown) (no (unknown) (unknown) NEUROLOGICAL: (units ( unknown) date) Alert and oriented unknown) x4. (unknown) (no (unknown) (unknown) Neut # (Auto) (units ( unknown) date) 6400 ([id number]) unknown) /uL (unknown) (no (unknown) (unknown) Neut % (Auto) (units ( unknown) date) 61.1 (50-75) % unknown) (unknown) (no (unknown) (unknown) New (units (unkno wn) date) unknown) (unknown) (no (unknown) (unknown) No Action (units (unkn own) date) unknown) (unknown) (no (unknown) (unknown) No Known Drug (units ( unknown) date) Allergies Allergy unknown) Verified 05/18/22 17:32 (unknown) (no (unknown) (unknown) Ordered: (units (unkno wn) date) unknown) (unknown) (no (unknown) (unknown) Orders (units (unkno wn) date) unknown) (unknown) (no (unknown) (unknown) Oxygen Delivery (units (unknown) date) Method 12/23/22 unknown) 00:50 (unknown) (no (unknown) (unknown) Oxygen Delivery (units (unknown) date) Method Room Air unknown) (unknown) (no (unknown) (unknown) Oxygen Delivery (units (unknown) date) Method unknown) (unknown) (no (unknown) (unknown) Patient (units (unkno wn) date) Disposition: Home unknown) (unknown) (no (unknown) (unknown) Patient History (units (unknown) date) unknown) (unknown) (no (unknown) (unknown) Patient is a (units (u nknown) date) 32-year-old male unknown) with history of kidney stones, who presents with (unknown) (no (unknown) (unknown) Patient: (units (unkno wn) date) Chapo Davis MR#: unknown) [id number] (unknown) (no (unknown) (unknown) Plt Count 254 (units ( unknown) date) (150-400) X103/uL unknown) (unknown) (no (unknown) (unknown) Potassium 3.8 (units ( unknown) date) (3.4-5.1) mmol/L unknown) (unknown) (no (unknown) (unknown) Prescriptions: (units (unknown) date) unknown) (unknown) (no (unknown) (unknown) Previous Rx's (units ( unknown) date) unknown) (unknown) (no (unknown) (unknown) Pulse Oximetry 94 (units (unknown) date) unknown) (unknown) (no (unknown) (unknown) Pulse Oximetry 97 (units (unknown) date) 12/23/22 00:50 unknown) (unknown) (no (unknown) (unknown) Pulse Oximetry 97 (units (unknown) date) 97 97 unknown) (unknown) (no (unknown) (unknown) Pulse Oximetry 97 (units (unknown) date) 97 unknown) (unknown) (no (unknown) (unknown) Pulse Oximetry 97 (units (unknown) date) unknown) (unknown) (no (unknown) (unknown) Pulse Rate 86 (units ( unknown) date) unknown) (unknown) (no (unknown) (unknown) Pulse Rate 89 (units ( unknown) date) unknown) (unknown) (no (unknown) (unknown) Pulse Rate 91 H (units (unknown) date) 12/23/22 00:50 unknown) (unknown) (no (unknown) (unknown) Pulse Rate 91 H (units (unknown) date) 94 H 95 H unknown) (unknown) (no (unknown) (unknown) Pulse Rate 95 H (units (unknown) date) 105 H unknown) (unknown) (no (unknown) (unknown) RBC 4.88 (units (unkno wn) date) (4.5-5.9) X106/uL unknown) (unknown) (no (unknown) (unknown) RDW 13.1 (units (unkno wn) date) (11.6-14.8) % unknown) (unknown) (no (unknown) (unknown) RESPIRATORY: (units (u nknown) date) Breath sounds unknown) equal bilaterally, no wheezes rales or rhonchi. (unknown) (no (unknown) (unknown) ROS Unobtainable: (units (unknown) date) All systems unknown) reviewed + are unremarkable except as noted in HPI (unknown) (no (unknown) (unknown) Referrals: (units (unk nown) date) unknown) (unknown) (no (unknown) (unknown) Related Data (units (u nknown) date) unknown) (unknown) (no (unknown) (unknown) Respiratory Rate (units (unknown) date) 18 12/23/22 00:50 unknown) (unknown) (no (unknown) (unknown) Respiratory Rate (units (unknown) date) 18 unknown) (unknown) (no (unknown) (unknown) Respiratory Rate (units (unknown) date) unknown) (unknown) (no (unknown) (unknown) Review of Systems (units (unknown) date) unknown) (unknown) (no (unknown) (unknown) SKIN: Warm, dry, (units (unknown) date) no laceration, no unknown) petechiae, no rashes or lesions. (unknown) (no (unknown) (unknown) Signed By: (units (unk nown) date) unknown) (unknown) (no (unknown) (unknown) Smoking Status: (units (unknown) date) Never smoker unknown) (unknown) (no (unknown) (unknown) Social History (units (unknown) date) (Reviewed 12/23/22 unknown) @ 02:28 by Nicole Gray DO) (unknown) (no (unknown) (unknown) Sodium 141 (units (unk nown) date) (137-145) mmol/L unknown) (unknown) (no (unknown) (unknown) Source: patient (units (unknown) date) unknown) (unknown) (no (unknown) (unknown) Stand Alone (units (un known) date) Forms: Patient unknown) Portal/API (unknown) (no (unknown) (unknown) Stated complaint: (units (unknown) date) rt. side back unknown) pain/abd. pain (unknown) (no (unknown) (unknown) Stop: 12/23/22 (units (unknown) date) 01:24 unknown) (unknown) (no (unknown) (unknown) Substance Use (units ( unknown) date) Type: does not use unknown) (unknown) (no (unknown) (unknown) Take Motrin 600 (units (unknown) date) mg every 8 hours unknown) as needed for pain (unknown) (no (unknown) (unknown) Take Crivitz every (units (unknown) date) 6 hours if needed unknown) for severe pain (unknown) (no (unknown) (unknown) Take Zofran every (units (unknown) date) 4-6 hours if unknown) needed for nausea (unknown) (no (unknown) (unknown) Temperature 97.8 (units (unknown) date) F 12/23/22 00:50 unknown) (unknown) (no (unknown) (unknown) Temperature 97.8 (units (unknown) date) F unknown) (unknown) (no (unknown) (unknown) Temperature (units (un known) date) unknown) (unknown) (no (unknown) (unknown) Time Seen by (units (u nknown) date) Provider: 12/23/22 unknown) 01:23 (unknown) (no (unknown) (unknown) Total Bilirubin (units (unknown) date) 0.4 (0.2-1.3) unknown) mg/dL (unknown) (no (unknown) (unknown) Total Protein 7.5 (units (unknown) date) (6.3-8.2) g/dL unknown) (unknown) (no (unknown) (unknown) Ur Culture (units (unk nown) date) Indicated? Cult unknown) not indicated (unknown) (no (unknown) (unknown) Urine Bacteria (units (unknown) date) None seen (None) unknown) (unknown) (no (unknown) (unknown) Urine Dip (units (unkn own) date) unknown) (unknown) (no (unknown) (unknown) Urine Microscopic (units (unknown) date) Stat unknown) (unknown) (no (unknown) (unknown) Urine RBC (units (unkn own) date) 5-10/hpf H unknown) (0-5/HPF) (unknown) (no (unknown) (unknown) Urine Specific (units (unknown) date) [place] 1.025 unknown) (unknown) (no (unknown) (unknown) Urine WBC 0-1/hpf (units (unknown) date) (0-5/HPF) unknown) (unknown) (no (unknown) (unknown) Vital Signs - 8 (units (unknown) date) hr unknown) (unknown) (no (unknown) (unknown) Vital Signs (units (un known) date) unknown) (unknown) (no (unknown) (unknown) Vital signs: (units (u nknown) date) unknown) (unknown) (no (unknown) (unknown) WBC 10.5 (units (unkno wn) date) (4.5-11.0) X103/uL unknown) (unknown) (no (unknown) (unknown) Kathie Otero, (units (unknown) date) [facility] [Primary Care unknown) Provider] (unknown) (no (unknown) (unknown) [Embedded Image (units (unknown) date) Not Available] unknown) (unknown) (no (unknown) (unknown) acetaminophen/Tyl (units (unknown) date) enol/paracetamol unknown) in it so do not take extra Tylenol or Tylenol (unknown) (no (unknown) (unknown) alcohol intake (units (unknown) date) frequency: 0-2 unknown) drinks per day (unknown) (no (unknown) (unknown) amoxicillin 875 (units (unknown) date) mg-potassium 1 tab unknown) PO BID #20 tabs 05/18/22 (unknown) (no (unknown) (unknown) amoxicillin-pot (units (unknown) date) clavulanate unknown) 875-125 mg tablet (unknown) (no (unknown) (unknown) and below (units (unkn own) date) unknown) (unknown) (no (unknown) (unknown) any other (units (unkn own) date) concerning unknown) symptoms return to ER for further evaluation (unknown) (no (unknown) (unknown) benzodiazepines (units (unknown) date) or controlled unknown) substances through the ED and her pain management (unknown) (no (unknown) (unknown) clavulanate 125 (units (unknown) date) mg tablet unknown) (unknown) (no (unknown) (unknown) constipation. (units ( unknown) date) unknown) (unknown) (no (unknown) (unknown) containing (units (unk nown) date) products unknown) (unknown) (no (unknown) (unknown) hydrocodone 5 (units ( unknown) date) mg-acetaminophen unknown) 325 1 tab PO Q6H PRN pain #10 tabs 12/23/22 (unknown) (no (unknown) (unknown) hydrocodone-aceta (units (unknown) date) minophen 5-325 mg unknown) tablet (unknown) (no (unknown) (unknown) intact (units (unkno wn) date) unknown) (unknown) (no (unknown) (unknown) membranes (units (unkn own) date) unknown) (unknown) (no (unknown) (unknown) mg tablet (units (unkn own) date) unknown) (unknown) (no (unknown) (unknown) nausea but no (units ( unknown) date) significant unknown) vomiting. No fever. No chest pain or other symptoms. (unknown) (no (unknown) (unknown) normal. He denies (units (unknown) date) any painful unknown) frequent urination. He is having some mild (unknown) (no (unknown) (unknown) ondansetron 4 mg (units (unknown) date) disintegrating 4 unknown) mg PO Q8H PRN nausea and 12/23/22 (unknown) (no (unknown) (unknown) ondansetron 4 mg (units (unknown) date) tablet,disintegrat unknown) ing (unknown) (no (unknown) (unknown) radiating down to (units (unknown) date) his groin. He was unknown) also noticing that his urine is darker than (unknown) (no (unknown) (unknown) require urology (units (unknown) date) consultation unknown) please discuss this with (unknown) (no (unknown) (unknown) right flank pain (units (unknown) date) and hematuria. He unknown) reports that it started about 2-3 days ago. (unknown) (no (unknown) (unknown) stool softener (units (unknown) date) such as Colace, unknown) Dulcolax, MiraLAX or prune juice, to help avoid (unknown) (no (unknown) (unknown) tablet vomiting (units (unknown) date) #10 tabs unknown) (unknown) (no (unknown) (unknown) will need to be (units (unknown) date) through your unknown) provider. Result panel 182 (unknown) (no (unknown) (unknown) (no value) (units (unk nown) date) unknown) (unknown) (no (unknown) (unknown) <Electronically (units (unknown) date) signed by Nicole unknownMorris Gray D.O.> (unknown) (no (unknown) (unknown) * Please follow-up (units (unknown) date) with your primary unknown) care provider in the next 2-3 days, you may (unknown) (no (unknown) (unknown) * What to do: (units ( unknown) date) Increase fluid unknown) intake, (unknown) (no (unknown) (unknown) * You've been (units ( unknown) date) diagnosed with unknown) kidney stone (unknown) (no (unknown) (unknown) -If you should (units (unknown) date) have fever, or unknown) pain is uncontrolled with medication at home or (unknown) (no (unknown) (unknown) 00:50 12/23/22 (units (unknown) date) unknown) (unknown) (no (unknown) (unknown) 00:56 12/23/22 (units (unknown) date) unknown) (unknown) (no (unknown) (unknown) 00:58 12/23/22 (units (unknown) date) unknown) (unknown) (no (unknown) (unknown) 00:58 (units (unkno wn) date) unknown) (unknown) (no (unknown) (unknown) 01:00 12/23/22 (units (unknown) date) unknown) (unknown) (no (unknown) (unknown) 01:10 01:40 01:40 (units (unknown) date) unknown) (unknown) (no (unknown) (unknown) 01:34 (units (unkno wn) date) unknown) (unknown) (no (unknown) (unknown) 01:42 12/23/22 (units (unknown) date) unknown) (unknown) (no (unknown) (unknown) 12/23/22 01:10 (units (unknown) date) unknown) (unknown) (no (unknown) (unknown) 12/23/22 01:36 (units (unknown) date) unknown) (unknown) (no (unknown) (unknown) 12/23/22 01:40 (units (unknown) date) unknown) (unknown) (no (unknown) (unknown) 12/23/22 12/23/22 (units (unknown) date) 12/23/22 unknown) Range/Units (unknown) (no (unknown) (unknown) 12/23/22 0521 (units ( unknown) date) unknown) (unknown) (no (unknown) (unknown) 12/23/22 (units (unkno wn) date) unknown) (unknown) (no (unknown) (unknown) 02:00 12/23/22 (units (unknown) date) unknown) (unknown) (no (unknown) (unknown) 02:00 (units (unkno wn) date) unknown) (unknown) (no (unknown) (unknown) 02:30 (units (unkno wn) date) unknown) (unknown) (no (unknown) (unknown) 02:45 12/23/22 (units (unknown) date) unknown) (unknown) (no (unknown) (unknown) 1 tab PO BID Qty: (units (unknown) date) 20 0RF unknown) (unknown) (no (unknown) (unknown) 1 tab PO Q6H PRN (units (unknown) date) (Reason: pain) unknown) Qty: 10 0RF (unknown) (no (unknown) (unknown) 1. Obstructing (units (unknown) date) urinary stone at unknown) the right UPJ with mild right hydronephrosis. (unknown) (no (unknown) (unknown) 1. You have been (units (unknown) date) prescribed unknown) narcotic medications, it does have (unknown) (no (unknown) (unknown) 1.29, previously (units (unknown) date) it was less than unknown) 1. He has no evidence of infection. Pain is (unknown) (no (unknown) (unknown) 2. Additional (units ( unknown) date) bilateral unknown) nonobstructing renal stones as described.? (unknown) (no (unknown) (unknown) 2. Please (units (unkn own) date) understand that we unknown) cannot provide further refills of narcotics, (unknown) (no (unknown) (unknown) 3. While on these (units (unknown) date) medications you unknown) cannot drive or operate heavy machinery. (unknown) (no (unknown) (unknown) 300-400 (units (unkno wn) date) [place] units.? unknown) There is associated mild right hydronephrosis with (unknown) (no (unknown) (unknown) 4 mg PO Q8H PRN (units (unknown) date) (Reason: nausea unknown) and vomiting) Qty: 10 0RF (unknown) (no (unknown) (unknown) 4. You cannot (units ( unknown) date) sign legal unknown) documents or perform any duties such as this. (unknown) (no (unknown) (unknown) 5 mm kidney stone (units (unknown) date) at the UPJ. He unknown) does have some mild increase of creatinine of (unknown) (no (unknown) (unknown) 5. As long as (units ( unknown) date) you're taking unknown) opiate pain medications he should also be taking a (unknown) (no (unknown) (unknown) [id number] (units (unkno wn) date) unknown) (unknown) (no (unknown) (unknown) ? (units (unkno wn) date) unknown) (unknown) (no (unknown) (unknown) ?automated (units (unk nown) date) exposure control, unknown) adjustment of mA and/or kV according to patient (unknown) (no (unknown) (unknown) ABDOMEN: Soft, (units (unknown) date) mild right lower unknown) quadrant pain no guarding no rebound negative (unknown) (no (unknown) (unknown) ABDOMEN: (units (unkno wn) date) unknown) (unknown) (no (unknown) (unknown) ALT 35 (<50) IU/L (units (unknown) date) unknown) (unknown) (no (unknown) (unknown) AST 29 (17-59) (units (unknown) date) IU/L unknown) (unknown) (no (unknown) (unknown) Abdominal Nodes:? (units (unknown) date) No retroperitoneal unknown) or mesenteric adenopathy by size criteria.? (unknown) (no (unknown) (unknown) Accession Number: (units (unknown) date) [id number] ?? unknown) (unknown) (no (unknown) (unknown) Acct:[id number] (units (unknown) date) unknown) (unknown) (no (unknown) (unknown) Activity (units (o wn) date) Restrictions/Addit unknown) ional Instructions: (unknown) (no (unknown) (unknown) Adrenal Glands:? (units (unknown) date) No adrenal unknown) nodules.? ? (unknown) (no (unknown) (unknown) Age/Sex: 32 / M (units (unknown) date) unknown) (unknown) (no (unknown) (unknown) Albumin 4.1 (units (un known) date) (3.5-5.0) g/dL unknown) (unknown) (no (unknown) (unknown) Albumin/Globulin (units (unknown) date) Ratio 1.2 unknown) (1.0-2.8) (unknown) (no (unknown) (unknown) Alkaline (units (unkno wn) date) Phosphatase 74 unknown) (38-126) U/L (unknown) (no (unknown) (unknown) Allergies (units (unkn own) date) unknown) (unknown) (no (unknown) (unknown) Allergy/AdvReac (units (unknown) date) Type Severity unknown) Reaction Status Date / Time (unknown) (no (unknown) (unknown) Axial sections (units (unknown) date) were acquired from unknown) the lung bases to the pubic symphysis.? (unknown) (no (unknown) (unknown) BUN 21 H (9-20) (units (unknown) date) mg/dL unknown) (unknown) (no (unknown) (unknown) BUN/Creatinine (units (unknown) date) Ratio 16.3 (6-22) unknown) (unknown) (no (unknown) (unknown) Baso # (Auto) 100 (units (unknown) date) (0-100) /uL unknown) (unknown) (no (unknown) (unknown) Baso % (Auto) 0.6 (units (unknown) date) (0-2) % unknown) (unknown) (no (unknown) (unknown) Bedside Urine (units ( unknown) date) Bilirubin - unknown) Negative (unknown) (no (unknown) (unknown) Bedside Urine (units ( unknown) date) Glucose Negative unknown) (unknown) (no (unknown) (unknown) Bedside Urine (units ( unknown) date) Ketone - Negative unknown) (unknown) (no (unknown) (unknown) Bedside Urine (units ( unknown) date) Leukocytes - unknown) Negative (unknown) (no (unknown) (unknown) Bedside Urine (units ( unknown) date) Nitrite - Negative unknown) (unknown) (no (unknown) (unknown) Bedside Urine (units ( unknown) date) Occult Blood unknown) (unknown) (no (unknown) (unknown) Bedside Urine (units ( unknown) date) Protein + 30 unknown) (unknown) (no (unknown) (unknown) Bedside Urine (units ( unknown) date) Urobilinogen - unknown) Negative (unknown) (no (unknown) (unknown) Bedside Urine pH (units (unknown) date) 6.0 unknown) (unknown) (no (unknown) (unknown) Biliary ducts:? (units (unknown) date) No biliary ductal unknown) dilatation.? ? (unknown) (no (unknown) (unknown) Bladder:? Normal (units (unknown) date) wall thickness. No unknown) stones. ? ? (unknown) (no (unknown) (unknown) Blood Pressure (units (unknown) date) 128/82 12/23/22 unknown) 00:50 (unknown) (no (unknown) (unknown) Blood Pressure (units (unknown) date) 128/82 unknown) (unknown) (no (unknown) (unknown) Blood Pressure (units (unknown) date) 141/87 H 135/82 unknown) (unknown) (no (unknown) (unknown) Blood Pressure (units (unknown) date) 145/96 H unknown) (unknown) (no (unknown) (unknown) Blood Pressure (units (unknown) date) unknown) (unknown) (no (unknown) (unknown) Bones:? (units (unkno wn) date) Visualized osseous unknown) structures demonstrate no suspicious focal lesions. (unknown) (no (unknown) (unknown) CARDIOVASCULAR: (units (unknown) date) Regular rate and unknown) rhythm without murmurs, rubs or gallops. (unknown) (no (unknown) (unknown) CBC Auto Diff (units ( unknown) date) [Complete Blood unknown) Count AUTO DIFF] Stat (unknown) (no (unknown) (unknown) CMP (units (unkno wn) date) [Comprehensive unknown) Metabolic Panel] Stat (unknown) (no (unknown) (unknown) COMPARISON:? (units (u nknown) date) [facility], unknown) CT, CT ABDOMEN PELVIS W CON, 05/18/2022, 19:05.? (unknown) (no (unknown) (unknown) CONTROLLED (units (unk nown) date) SUBSTANCE unknown) DISCHARGE (Narcotoic/benzodi azepine) (unknown) (no (unknown) (unknown) CT kidney ureter (units (unknown) date) bladder (KUB) Stat unknown) (unknown) (no (unknown) (unknown) CT scan - (units (unkn own) date) abdomen/pelvis: unknown) (unknown) (no (unknown) (unknown) Calcium 9.1 (units (un known) date) (8.4-10.2) mg/dL unknown) (unknown) (no (unknown) (unknown) Carbon Dioxide 30 (units (unknown) date) (22-32) mmol/L unknown) (unknown) (no (unknown) (unknown) Chief complaint: (units (unknown) date) Urogenital-Male unknown) (unknown) (no (unknown) (unknown) Chloride 104 (units (u nknown) date) (98-107) mmol/L unknown) (unknown) (no (unknown) (unknown) Clinical (units (unkno wn) date) Impression: unknown) (unknown) (no (unknown) (unknown) Coronal and (units (un known) date) unknown) (unknown) (no (unknown) (unknown) Course (units (unkno wn) date) unknown) (unknown) (no (unknown) (unknown) Creatinine 1.29 H (units (unknown) date) (0.66-1.25) mg/dL unknown) (unknown) (no (unknown) (unknown) : 1990 (units (unknown) date) Acct:[id number] unknown) (unknown) (no (unknown) (unknown) : 1990 (units (unknown) date) unknown) (unknown) (no (unknown) (unknown) Date of Service: (units (unknown) date) 12/23/22 unknown) (unknown) (no (unknown) (unknown) Departure (units (unkn own) date) unknown) (unknown) (no (unknown) (unknown) Dictated by: (units (u nknown) date) Elijah Ramirez, unknown) Antonia on 12/23/2022 at 1:39 ? ? (unknown) (no (unknown) (unknown) Discharge Plan (units (unknown) date) unknown) (unknown) (no (unknown) (unknown) Discontinued (units (u nknown) date) Medications unknown) (unknown) (no (unknown) (unknown) Documented By: GC (units (unknown) date) unknown) (unknown) (no (unknown) (unknown) ED Orders (units (unkn own) date) unknown) (unknown) (no (unknown) (unknown) ER Physician: (units ( unknown) date) Nicole Gray unknown) D.O. (unknown) (no (unknown) (unknown) EXTREMITIES: (units (u nknown) date) Normal range of unknown) motion, no clubbing or edema. Neurovascularly (unknown) (no (unknown) (unknown) Emergency Report (units (unknown) date) unknown) (unknown) (no (unknown) (unknown) Eos # (Auto) 500 (units (unknown) date) H (0-450) /uL unknown) (unknown) (no (unknown) (unknown) Eos % (Auto) 4.8 (units (unknown) date) H (2-4) % unknown) (unknown) (no (unknown) (unknown) Esterase (units (unkno wn) date) unknown) (unknown) (no (unknown) (unknown) Estimated GFR > (units (unknown) date) 60 (>60) mL/min unknown) (unknown) (no (unknown) (unknown) Exam (units (unkno wn) date) unknown) (unknown) (no (unknown) (unknown) FINDINGS:? (units (unk nown) date) unknown) (unknown) (no (unknown) (unknown) GENERAL: Alert (units (unknown) date) very pleasant unknown) 32-year-old male BMI 54 and in no acute distress. (unknown) (no (unknown) (unknown) : Right CVA (units ( unknown) date) tenderness unknown) (unknown) (no (unknown) (unknown) Gallbladder:? (units ( unknown) date) Within normal unknown) limits without calcified gallstones.? ? (unknown) (no (unknown) (unknown) General (units (unkno wn) date) unknown) (unknown) (no (unknown) (unknown) Globulin 3.4 (units (u nknown) date) (1.7-4.1) g/dL unknown) (unknown) (no (unknown) (unknown) Glucose 106 H (units ( unknown) date) (70-100) mg/dL unknown) (unknown) (no (unknown) (unknown) HEENT: Head (units (un known) date) atraumatic,EOMI, unknown) pupils reactive, face symmetric, moist mucous (unknown) (no (unknown) (unknown) HPI - Male (units (unk nown) date) Genitourinary unknown) (unknown) (no (unknown) (unknown) HPI Narrative: (units (unknown) date) unknown) (unknown) (no (unknown) (unknown) Having some (units (un known) date) right-sided flank unknown) pain. Tonight the pain got significantly worse (unknown) (no (unknown) (unknown) Hct 42.5 (41-53) (units (unknown) date) % unknown) (unknown) (no (unknown) (unknown) Heart:? Heart is (units (unknown) date) normal in size. unknown) (unknown) (no (unknown) (unknown) Hgb 14.3 (units (unkno wn) date) (13.5-17.5) g/dL unknown) (unknown) (no (unknown) (unknown) History of (units (unk nown) date) Present Illness unknown) (unknown) (no (unknown) (unknown) Hospital, CT, (units ( unknown) date) KIDNEY/ unknown) URETER/BLADDER, 11/20/2015, 22:21. (unknown) (no (unknown) (unknown) Hydrocodone (units (un known) date) Bitart/Acetaminoph unknown) en (Hydrocodone/Acet 5/325 Prepack) 1 bottle MISC (unknown) (no (unknown) (unknown) IMPRESSION:? (units (u nknown) date) unknown) (unknown) (no (unknown) (unknown) INDICATIONS:? (units ( unknown) date) right flank prior unknown) stones (unknown) (no (unknown) (unknown) Image quality:? (units (unknown) date) Excellent.? unknown) (unknown) (no (unknown) (unknown) Imaging Data (units (u nknown) date) unknown) (unknown) (no (unknown) (unknown) Initial Vital (units ( unknown) date) Signs unknown) (unknown) (no (unknown) (unknown) Initial Vital (units ( unknown) date) Signs: unknown) (unknown) (no (unknown) (unknown) Instructions: DI (units (unknown) date) for Kidney unknown) Infection (unknown) (no (unknown) (unknown) [facility] (units (unknown) date) [address] unknown) [place] [address] (unknown) (no (unknown) (unknown) Prole (units (unkno wn) date) unknown) (unknown) (no (unknown) (unknown) Ketorolac (units (unkn own) date) Tromethamine unknown) (Ketorolac 30 Mg/Ml Vial) 15 mg IV NOW ONE (unknown) (no (unknown) (unknown) Kidney calculi (units (unknown) date) unknown) (unknown) (no (unknown) (unknown) Lab Data (units (unkno wn) date) unknown) (unknown) (no (unknown) (unknown) Lab Results (units (un known) date) unknown) (unknown) (no (unknown) (unknown) Labs: (units (unkno wn) date) unknown) (unknown) (no (unknown) (unknown) Last Admin: (units (un known) date) 12/23/22 01:49 unknown) Dose: 15 mg (unknown) (no (unknown) (unknown) Last Admin: (units (un known) date) 12/23/22 02:44 unknown) Dose: 1 bottle (unknown) (no (unknown) (unknown) Left Kidney and (units (unknown) date) Ureter: ? There unknown) are 3 nonobstructing left renal stones with the (unknown) (no (unknown) (unknown) Lipase 75 (units (unkn own) date) (23-300) U/L unknown) (unknown) (no (unknown) (unknown) Lipase Stat (units (un known) date) unknown) (unknown) (no (unknown) (unknown) Liver:? (units (unkno wn) date) Noncontrast unknown) evaluation of the liver demonstrates no discrete? mass. (unknown) (no (unknown) (unknown) Loc: ED (units (unkno wn) date) unknown) (unknown) (no (unknown) (unknown) Lung bases:? (units (u nknown) date) There is minimal unknown) atelectasis.? ? (unknown) (no (unknown) (unknown) Lymph # (Auto) (units (unknown) date) 2600 ([id number]) unknown) /uL (unknown) (no (unknown) (unknown) Lymph % (Auto) (units (unknown) date) 25.0 (25-40) % unknown) (unknown) (no (unknown) (unknown) MCH 29.3 (26-34) (units (unknown) date) PG unknown) (unknown) (no (unknown) (unknown) MCHC 33.6 (30-36) (units (unknown) date) % unknown) (unknown) (no (unknown) (unknown) MCV 87.1 (80-100) (units (unknown) date) fL unknown) (unknown) (no (unknown) (unknown) MDM - Male (units (unk nown) date) Genitourinary unknown) (unknown) (no (unknown) (unknown) MDM Narrative (units ( unknown) date) unknown) (unknown) (no (unknown) (unknown) MEDICATIONS (units (un known) date) unknown) (unknown) (no (unknown) (unknown) MR#: [id number] (units (unknown) date) unknown) (unknown) (no (unknown) (unknown) Medical decision (units (unknown) date) making narrative: unknown) (unknown) (no (unknown) (unknown) Medication (units (unk nown) date) Instructions unknown) Recorded (unknown) (no (unknown) (unknown) Miscellaneous: No (units (unknown) date) inguinal hernias unknown) identified. ? ? (unknown) (no (unknown) (unknown) Mode of arrival: (units (unknown) date) Ambulatory unknown) (unknown) (no (unknown) (unknown) Holmes # (Auto) 900 (units (unknown) date) (0-900) /uL unknown) (unknown) (no (unknown) (unknown) [place] % (Auto) 8.5 (units (unknown) date) (3-14) % unknown) (unknown) (no (unknown) (unknown) Holt sign no (units (unknown) date) right upper unknown) quadrant pain (unknown) (no (unknown) (unknown) NEUROLOGICAL: (units ( unknown) date) Alert and oriented unknown) x4. (unknown) (no (unknown) (unknown) Neut # (Auto) (units ( unknown) date) 6400 ([id number]) unknown) /uL (unknown) (no (unknown) (unknown) Neut % (Auto) (units ( unknown) date) 61.1 (50-75) % unknown) (unknown) (no (unknown) (unknown) New (units (unkno wn) date) unknown) (unknown) (no (unknown) (unknown) No Action (units (unkn own) date) unknown) (unknown) (no (unknown) (unknown) No Known Drug (units ( unknown) date) Allergies Allergy unknown) Verified 05/18/22 17:32 (unknown) (no (unknown) (unknown) Ondansetron HCl (units (unknown) date) (Ondansetron 4 Mg unknown) Odt Prepack) 1 bottle MISC SEEINSTR ONE (unknown) (no (unknown) (unknown) Ordered: (units (unkno wn) date) unknown) (unknown) (no (unknown) (unknown) Ordering (units (unkno wn) date) Provider: unknown) Nicole Gray D.O. (unknown) (no (unknown) (unknown) Orders (units (unkno wn) date) unknown) (unknown) (no (unknown) (unknown) Other (units (unkno wn) date) differential unknown) diagnosis included nephrolithiasis cholelithiasis (unknown) (no (unknown) (unknown) Oxygen Delivery (units (unknown) date) Method 12/23/22 unknown) 00:50 (unknown) (no (unknown) (unknown) Oxygen Delivery (units (unknown) date) Method Room Air unknown) (unknown) (no (unknown) (unknown) Oxygen Delivery (units (unknown) date) Method unknown) (unknown) (no (unknown) (unknown) PELVIS: (units (unkno wn) date) unknown) (unknown) (no (unknown) (unknown) PROCEDURE:? CT (units (unknown) date) KIDNEY URETER unknown) BLADDER (KUB) (unknown) (no (unknown) (unknown) Pancreas:? (units (unk nown) date) Unremarkable.? ? unknown) (unknown) (no (unknown) (unknown) Patient (units (unkno wn) date) 32-year-old male unknown) who does have a history of kidney stones presenting (unknown) (no (unknown) (unknown) Patient (units (unkno wn) date) Disposition: Home unknown) (unknown) (no (unknown) (unknown) Patient History (units (unknown) date) unknown) (unknown) (no (unknown) (unknown) Patient is a (units (u nknown) date) 32-year-old male unknown) with history of kidney stones, who presents with (unknown) (no (unknown) (unknown) Patient: (units (unkno wn) date) Chapo Davis MR#: unknown) [id number] (unknown) (no (unknown) (unknown) Patient: (units (unkno wn) date) Chapo Davis unknown) (unknown) (no (unknown) (unknown) Pelvic Nodes: No (units (unknown) date) enlarged lymph unknown) nodes.? (unknown) (no (unknown) (unknown) Pelvic Organs:? (units (unknown) date) Unremarkable.? ? unknown) (unknown) (no (unknown) (unknown) Peritoneum:? No (units (unknown) date) abnormal unknown) intraperitoneal fluid.? No free air.? (unknown) (no (unknown) (unknown) Plt Count 254 (units ( unknown) date) (150-400) X103/uL unknown) (unknown) (no (unknown) (unknown) Potassium 3.8 (units ( unknown) date) (3.4-5.1) mmol/L unknown) (unknown) (no (unknown) (unknown) Prescriptions: (units (unknown) date) unknown) (unknown) (no (unknown) (unknown) Previous Rx's (units ( unknown) date) unknown) (unknown) (no (unknown) (unknown) Procedure: CT (units ( unknown) date) kidney ureter unknown) bladder (KUB) (unknown) (no (unknown) (unknown) Pulse Oximetry 94 (units (unknown) date) unknown) (unknown) (no (unknown) (unknown) Pulse Oximetry 96 (units (unknown) date) unknown) (unknown) (no (unknown) (unknown) Pulse Oximetry 97 (units (unknown) date) 12/23/22 00:50 unknown) (unknown) (no (unknown) (unknown) Pulse Oximetry 97 (units (unknown) date) 97 97 unknown) (unknown) (no (unknown) (unknown) Pulse Oximetry 97 (units (unknown) date) 97 unknown) (unknown) (no (unknown) (unknown) Pulse Oximetry 97 (units (unknown) date) unknown) (unknown) (no (unknown) (unknown) Pulse Rate 86 (units ( unknown) date) unknown) (unknown) (no (unknown) (unknown) Pulse Rate 88 (units ( unknown) date) unknown) (unknown) (no (unknown) (unknown) Pulse Rate 89 (units ( unknown) date) unknown) (unknown) (no (unknown) (unknown) Pulse Rate 91 H (units (unknown) date) 12/23/22 00:50 unknown) (unknown) (no (unknown) (unknown) Pulse Rate 91 H (units (unknown) date) 94 H 95 H unknown) (unknown) (no (unknown) (unknown) Pulse Rate 95 H (units (unknown) date) 105 H unknown) (unknown) (no (unknown) (unknown) RBC 4.88 (units (unkno wn) date) (4.5-5.9) X106/uL unknown) (unknown) (no (unknown) (unknown) RDW 13.1 (units (unkno wn) date) (11.6-14.8) % unknown) (unknown) (no (unknown) (unknown) RESPIRATORY: (units (u nknown) date) Breath sounds unknown) equal bilaterally, no wheezes rales or rhonchi. (unknown) (no (unknown) (unknown) ROS Unobtainable: (units (unknown) date) All systems unknown) reviewed + are unremarkable except as noted in HPI (unknown) (no (unknown) (unknown) Radiologist's (units ( unknown) date) Impression: unknown) (unknown) (no (unknown) (unknown) Referrals: (units (unk nown) date) unknown) (unknown) (no (unknown) (unknown) Related Data (units (u nknown) date) unknown) (unknown) (no (unknown) (unknown) Respiratory Rate (units (unknown) date) 16 unknown) (unknown) (no (unknown) (unknown) Respiratory Rate (units (unknown) date) 18 12/23/22 00:50 unknown) (unknown) (no (unknown) (unknown) Respiratory Rate (units (unknown) date) 18 unknown) (unknown) (no (unknown) (unknown) Respiratory Rate (units (unknown) date) unknown) (unknown) (no (unknown) (unknown) Review of Systems (units (unknown) date) unknown) (unknown) (no (unknown) (unknown) Right Kidney and (units (unknown) date) Ureter: ? There is unknown) an obstructing urinary stone at the right (unknown) (no (unknown) (unknown) SEEINSTR ONE (units (u nknown) date) unknown) (unknown) (no (unknown) (unknown) SKIN: Warm, dry, (units (unknown) date) no laceration, no unknown) petechiae, no rashes or lesions. (unknown) (no (unknown) (unknown) Signed By: (units (unk nown) date) unknown) (unknown) (no (unknown) (unknown) Smoking Status: (units (unknown) date) Never smoker unknown) (unknown) (no (unknown) (unknown) Social History (units (unknown) date) (Reviewed 12/23/22 unknown) @ 02:28 by Nicole Gray DO) (unknown) (no (unknown) (unknown) Sodium 141 (units (unk nown) date) (137-145) mmol/L unknown) (unknown) (no (unknown) (unknown) Source: patient (units (unknown) date) unknown) (unknown) (no (unknown) (unknown) Spleen:? Normal (units (unknown) date) in size.? ? unknown) (unknown) (no (unknown) (unknown) Stand Alone (units (un known) date) Forms: Patient unknown) Portal/API (unknown) (no (unknown) (unknown) Stated complaint: (units (unknown) date) rt. side back unknown) pain/abd. pain (unknown) (no (unknown) (unknown) Stomach and (units (un known) date) Bowel:? Stomach, unknown) small bowel loops, and colon are normal in caliber (unknown) (no (unknown) (unknown) Stop: 12/23/22 (units (unknown) date) 01:24 unknown) (unknown) (no (unknown) (unknown) Stop: 12/23/22 (units (unknown) date) 02:28 unknown) (unknown) (no (unknown) (unknown) Substance Use (units ( unknown) date) Type: does not use unknown) (unknown) (no (unknown) (unknown) TECHNIQUE:? (units (un known) date) unknown) (unknown) (no (unknown) (unknown) Take Motrin 600 (units (unknown) date) mg every 8 hours unknown) as needed for pain (unknown) (no (unknown) (unknown) Take Crivitz every (units (unknown) date) 6 hours if needed unknown) for severe pain (unknown) (no (unknown) (unknown) Take Zofran every (units (unknown) date) 4-6 hours if unknown) needed for nausea (unknown) (no (unknown) (unknown) Temperature 97.4 (units (unknown) date) F L unknown) (unknown) (no (unknown) (unknown) Temperature 97.8 (units (unknown) date) F 12/23/22 00:50 unknown) (unknown) (no (unknown) (unknown) Temperature 97.8 (units (unknown) date) F unknown) (unknown) (no (unknown) (unknown) Temperature (units (un known) date) unknown) (unknown) (no (unknown) (unknown) Time Seen by (units (u nknown) date) Provider: 12/23/22 unknown) 01:23 (unknown) (no (unknown) (unknown) Total Bilirubin (units (unknown) date) 0.4 (0.2-1.3) unknown) mg/dL (unknown) (no (unknown) (unknown) Total Protein 7.5 (units (unknown) date) (6.3-8.2) g/dL unknown) (unknown) (no (unknown) (unknown) URINARY: (units (unkno wn) date) unknown) (unknown) (no (unknown) (unknown) Ur Culture (units (unk nown) date) Indicated? Cult unknown) not indicated (unknown) (no (unknown) (unknown) Urine Bacteria (units (unknown) date) None seen (None) unknown) (unknown) (no (unknown) (unknown) Urine Dip (units (unkn own) date) unknown) (unknown) (no (unknown) (unknown) Urine Microscopic (units (unknown) date) Stat unknown) (unknown) (no (unknown) (unknown) Urine RBC (units (unkn own) date) 5-10/hpf H unknown) (0-5/HPF) (unknown) (no (unknown) (unknown) Urine Specific (units (unknown) date) [place] 1.025 unknown) (unknown) (no (unknown) (unknown) Urine WBC 0-1/hpf (units (unknown) date) (0-5/HPF) unknown) (unknown) (no (unknown) (unknown) Ventral Wall: ? (units (unknown) date) No hernia.? unknown) (unknown) (no (unknown) (unknown) Vessels:? Aorta (units (unknown) date) and inferior vena unknown) cava are normal in size.? (unknown) (no (unknown) (unknown) Vital Signs - 8 (units (unknown) date) hr unknown) (unknown) (no (unknown) (unknown) Vital Signs (units (un known) date) unknown) (unknown) (no (unknown) (unknown) Vital signs: (units (u nknown) date) unknown) (unknown) (no (unknown) (unknown) WBC 10.5 (units (unkno wn) date) (4.5-11.0) X103/uL unknown) (unknown) (no (unknown) (unknown) Kathie Otero, (units (unknown) date) PA-C [Primary Care unknown) Provider] (unknown) (no (unknown) (unknown) [Embedded Image (units (unknown) date) Not Available] unknown) (unknown) (no (unknown) (unknown) acetaminophen/Tyl (units (unknown) date) enol/paracetamol unknown) in it so do not take extra Tylenol or Tylenol (unknown) (no (unknown) (unknown) alcohol intake (units (unknown) date) frequency: 0-2 unknown) drinks per day (unknown) (no (unknown) (unknown) amoxicillin 875 (units (unknown) date) mg-potassium 1 tab unknown) PO BID #20 tabs 05/18/22 (unknown) (no (unknown) (unknown) amoxicillin-pot (units (unknown) date) clavulanate unknown) 875-125 mg tablet (unknown) (no (unknown) (unknown) and below (units (unkn own) date) unknown) (unknown) (no (unknown) (unknown) and wall (units (unkno wn) date) unknown) (unknown) (no (unknown) (unknown) any other (units (unkn own) date) concerning unknown) symptoms return to ER for further evaluation (unknown) (no (unknown) (unknown) approximately (units ( unknown) date) unknown) (unknown) (no (unknown) (unknown) benzodiazepines (units (unknown) date) or controlled unknown) substances through the ED and her pain management (unknown) (no (unknown) (unknown) clavulanate 125 (units (unknown) date) mg tablet unknown) (unknown) (no (unknown) (unknown) constipation. (units ( unknown) date) unknown) (unknown) (no (unknown) (unknown) containing (units (unk nown) date) products unknown) (unknown) (no (unknown) (unknown) diverticulitis (units (unknown) date) appendicitis unknown) (unknown) (no (unknown) (unknown) hydrocodone 5 (units ( unknown) date) mg-acetaminophen unknown) 325 1 tab PO Q6H PRN pain #10 tabs 12/23/22 (unknown) (no (unknown) (unknown) hydrocodone-aceta (units (unknown) date) minophen 5-325 mg unknown) tablet (unknown) (no (unknown) (unknown) intact (units (unkno wn) date) unknown) (unknown) (no (unknown) (unknown) largest (units (unkno wn) date) unknown) (unknown) (no (unknown) (unknown) measuring up to (units (unknown) date) 0.4 cm.? No unknown) hydronephrosis.? No hydroureter. (unknown) (no (unknown) (unknown) membranes (units (unkn own) date) unknown) (unknown) (no (unknown) (unknown) mg tablet (units (unkn own) date) unknown) (unknown) (no (unknown) (unknown) much better after (units (unknown) date) Toradol. Recommend unknown) supportive care only. He has never (unknown) (no (unknown) (unknown) nausea but no (units ( unknown) date) significant unknown) vomiting. No fever. No chest pain or other symptoms. (unknown) (no (unknown) (unknown) normal. He denies (units (unknown) date) any painful unknown) frequent urination. He is having some mild (unknown) (no (unknown) (unknown) ondansetron 4 mg (units (unknown) date) disintegrating 4 unknown) mg PO Q8H PRN nausea and 12/23/22 (unknown) (no (unknown) (unknown) ondansetron 4 mg (units (unknown) date) tablet,disintegrat unknown) ing (unknown) (no (unknown) (unknown) perinephric (units (un known) date) unknown) (unknown) (no (unknown) (unknown) radiating down to (units (unknown) date) his groin. He was unknown) also noticing that his urine is darker than (unknown) (no (unknown) (unknown) require urology (units (unknown) date) consultation unknown) please discuss this with (unknown) (no (unknown) (unknown) required (units (unkno wn) date) lithotripsy or unknown) other interventions for his previous kidney stones. (unknown) (no (unknown) (unknown) right flank pain (units (unknown) date) and hematuria. He unknown) reports that it started about 2-3 days ago. (unknown) (no (unknown) (unknown) sagittal (units (unkno wn) date) reformats were unknown) performed.? For radiation dose reduction, the following (unknown) (no (unknown) (unknown) size.? (units (unkno wn) date) unknown) (unknown) (no (unknown) (unknown) stones with (units (un known) date) unknown) (unknown) (no (unknown) (unknown) stool softener (units (unknown) date) such as Colace, unknown) Dulcolax, MiraLAX or prune juice, to help avoid (unknown) (no (unknown) (unknown) stranding.? There (units (unknown) date) are approximately unknown) 5 additional nonobstructing right renal (unknown) (no (unknown) (unknown) tablet vomiting (units (unknown) date) #10 tabs unknown) (unknown) (no (unknown) (unknown) the UPJ.? (units (unkn own) date) unknown) (unknown) (no (unknown) (unknown) the largest (units (un known) date) measuring up to unknown) 0.3 cm.? The right ureter is nondistended distal to (unknown) (no (unknown) (unknown) thickness.? The (units (unknown) date) appendix is normal unknown) in appearance.? (unknown) (no (unknown) (unknown) today with (units (unk nown) date) right-sided flank unknown) pain. He is found to have hematuria. CT confirms (unknown) (no (unknown) (unknown) ureteropelvic (units ( unknown) date) junction measuring unknown) up to 0.5 cm with attenuation values of (unknown) (no (unknown) (unknown) was used: (units (unkn own) date) unknown) (unknown) (no (unknown) (unknown) will need to be (units (unknown) date) through your unknown) provider. Result panel 183 (unknown) (no date) (unknown) (unknown) 0.5 % (unkn own) (unknown) (no date) (unknown) (unknown) 100 /ul (unkn own) (unknown) (no date) (unknown) (unknown) 12.2 x10 3/ul (unkn own) (unknown) (no date) (unknown) (unknown) 12.8 % (unkn own) (unknown) (no date) (unknown) (unknown) 1200 /ul (unkn own) (unknown) (no date) (unknown) (unknown) 15.5 g/dl (unkn own) (unknown) (no date) (unknown) (unknown) 17.9 % (unkn own) (unknown) (no date) (unknown) (unknown) 2.5 % (unkn own) (unknown) (no date) (unknown) (unknown) 2200 /ul (unkn own) (unknown) (no date) (unknown) (unknown) 254 x10 3/ul (unkn own) (unknown) (no date) (unknown) (unknown) 29.2 pg (unkn own) (unknown) (no date) (unknown) (unknown) 300 /ul (unkn own) (unknown) (no date) (unknown) (unknown) 33.9 % (unkn own) (unknown) (no date) (unknown) (unknown) 45.8 % (unkn own) (unknown) (no date) (unknown) (unknown) 5.32 x10 6/ul (unkn own) (unknown) (no date) (unknown) (unknown) 69.2 % (unkn own) (unknown) (no date) (unknown) (unknown) 8500 /ul (unkn own) (unknown) (no date) (unknown) (unknown) 86.1 fl (unkn own) (unknown) (no date) (unknown) (unknown) 9.9 % (unkn own) Result panel 184 (unknown) (no date) (unknown) (unknown) > 60 ml/min (unkn own) (unknown) (no date) (unknown) (unknown) > 60 ml/min (unkn own) (unknown) (no date) (unknown) (unknown) 0.5 mg/dl (unkn own) (unknown) (no date) (unknown) (unknown) 1.17 mg/dl (unkn own) (unknown) (no date) (unknown) (unknown) 1.3 (units unknown) (unknown) (unknown) (no date) (unknown) (unknown) 100 mmol/l (unkn own) (unknown) (no date) (unknown) (unknown) 138 mmol/l (unkn own) (unknown) (no date) (unknown) (unknown) 16.2 (units unknown) (unknown) (unknown) (no date) (unknown) (unknown) 19 mg/dl (unkn own) (unknown) (no date) (unknown) (unknown) 29 mmol/l (unkn own) (unknown) (no date) (unknown) (unknown) 3.7 g/dl (unkn own) (unknown) (no date) (unknown) (unknown) 30 iu/l (unkn own) (unknown) (no date) (unknown) (unknown) 39 iu/l (unkn own) (unknown) (no date) (unknown) (unknown) 4.0 mmol/l (unkn own) (unknown) (no date) (unknown) (unknown) 4.7 g/dl (unkn own) (unknown) (no date) (unknown) (unknown) 75 u/l (unkn own) (unknown) (no date) (unknown) (unknown) 8.4 g/dl (unkn own) (unknown) (no date) (unknown) (unknown) 88 u/l (unkn own) (unknown) (no date) (unknown) (unknown) 9.3 mg/dl (unkn own) (unknown) (no date) (unknown) (unknown) 96 mg/dl (unkn own) (unknown) (no date) (unknown) (unknown) 96 mg/dl (unkn own) Result panel 185 (unknown) (no date) (unknown) (unknown) 1-5 /HPF (units (unkn own) unknown) (unknown) (no date) (unknown) (unknown) 1-5/HPF (units (unkn own) unknown) (unknown) (no date) (unknown) (unknown) 5-10/HPF (units (unkn own) unknown) (unknown) (no date) (unknown) (unknown) 5-10/HPF (units (unkn own) unknown) (unknown) (no date) (unknown) (unknown) Cult Not (units (unkn own) Indicated unknown) (unknown) (no date) (unknown) (unknown) None Seen (units (unk nown) unknown) Result panel 186 (unknown) (no (unknown) (unknown) (no value) (units (unk nown) date) unknown) (unknown) (no (unknown) (unknown) 01/17/23 (units (unkno wn) date) unknown) (unknown) (no (unknown) (unknown) 1. Obstructing (units (unknown) date) urinary stone in unknown) the proximal right ureter redemonstrated with (unknown) (no (unknown) (unknown) [address] [place] [address] (units (unknown) date) unknown) (unknown) (no (unknown) (unknown) 1:28. (units (unkno wn) date) unknown) (unknown) (no (unknown) (unknown) 2. Additional (units ( unknown) date) small bilateral unknown) nonobstructing renal stones as described. (unknown) (no (unknown) (unknown) [id number] (units (unkno wn) date) unknown) (unknown) (no (unknown) (unknown) 3. No evidence of (units (unknown) date) appendicitis. unknown) (unknown) (no (unknown) (unknown) ABDOMEN: (units (unkno wn) date) unknown) (unknown) (no (unknown) (unknown) Abdominal Nodes: (units (unknown) date) No retroperitoneal unknown) or mesenteric adenopathy by size criteria. (unknown) (no (unknown) (unknown) Accession Number: (units (unknown) date) [id number] unknown) (unknown) (no (unknown) (unknown) Adrenal Glands: (units (unknown) date) No adrenal unknown) nodules. (unknown) (no (unknown) (unknown) After the (units (unkn own) date) administration of unknown) IV contrast, axial sections were acquired from the (unknown) (no (unknown) (unknown) Age/Sex: 32 / M (units (unknown) date) Date of Service: unknown) (unknown) (no (unknown) (unknown) [facility] (units ( unknown) date) [id number] unknown) (unknown) (no (unknown) (unknown) Approved by: (units (u nknown) date) Elijah Ramirez, unknown) Antonia on 01/17/2023 at 22:57 (unknown) (no (unknown) (unknown) Associated (units (unk nown) date) unknown) (unknown) (no (unknown) (unknown) Biliary ducts: No (units (unknown) date) biliary ductal unknown) dilatation. (unknown) (no (unknown) (unknown) Bladder: (units (unkno wn) date) Unremarkable. unknown) (unknown) (no (unknown) (unknown) Bones: Visualized (units (unknown) date) osseous structures unknown) demonstrate no suspicious focal lesions. (unknown) (no (unknown) (unknown) COMPARISON: (units (un known) date) [facility], unknown) CT, CT KIDNEY URETER BLADDER (KUB), 12/23/2022, (unknown) (no (unknown) (unknown) CT Scan Report (units (unknown) date) unknown) (unknown) (no (unknown) (unknown) : 1990 (units (unknown) date) Acct:[id number] unknown) (unknown) (no (unknown) (unknown) Dictated by: (units (u nknown) date) Elijah Ramirez, unknown) Antonia on 01/17/2023 at 22:51 (unknown) (no (unknown) (unknown) FINDINGS: (units (unkn own) date) unknown) (unknown) (no (unknown) (unknown) Gallbladder: (units (u nknown) date) Within normal unknown) limits without calcified gallstones. (unknown) (no (unknown) (unknown) Heart: Heart is (units (unknown) date) normal in size. unknown) (unknown) (no (unknown) (unknown) IMPRESSION: (units (un known) date) unknown) (unknown) (no (unknown) (unknown) INDICATIONS: RLQ (units (unknown) date) abd pain eval for unknown) appy (unknown) (no (unknown) (unknown) Image quality: (units (unknown) date) Excellent. unknown) (unknown) (no (unknown) (unknown) [facility] (units (unknown) date) unknown) (unknown) (no (unknown) (unknown) [facility], (units (unknown) date) CT, CT ABDOMEN unknown) PELVIS W CON, 05/18/2022, 19:05. (unknown) (no (unknown) (unknown) Kidneys and (units (un known) date) Ureters: There is unknown) a persistent obstructing stone within the (unknown) (no (unknown) (unknown) Liver: No mass (units (unknown) date) lesion. unknown) (unknown) (no (unknown) (unknown) Loc: ED (units (unkno wn) date) unknown) (unknown) (no (unknown) (unknown) Lung bases: (units (un known) date) Unremarkable. unknown) (unknown) (no (unknown) (unknown) Miscellaneous: No (units (unknown) date) inguinal hernias unknown) are seen. (unknown) (no (unknown) (unknown) Ordering (units (unkno wn) date) Provider: unknown) Zackery Velazquez D.O. (unknown) (no (unknown) (unknown) PELVIS: (units (unkno wn) date) unknown) (unknown) (no (unknown) (unknown) PROCEDURE: CT (units ( unknown) date) ABDOMEN PELVIS W unknown) CON (unknown) (no (unknown) (unknown) Pancreas: (units (unkn own) date) Unremarkable. unknown) (unknown) (no (unknown) (unknown) Patient: (units (unkno wn) date) Chapo Davis MR#: unknown) [id number] (unknown) (no (unknown) (unknown) Pelvic Nodes: No (units (unknown) date) enlarged lymph unknown) nodes. (unknown) (no (unknown) (unknown) Pelvic Organs: (units (unknown) date) Unremarkable. unknown) (unknown) (no (unknown) (unknown) Peritoneum: No (units (unknown) date) abnormal unknown) intraperitoneal fluid. No free air. (unknown) (no (unknown) (unknown) Procedure: CT (units ( unknown) date) abdomen pelvis w unknown) con (unknown) (no (unknown) (unknown) Signed (units (unkno wn) date) unknown) (unknown) (no (unknown) (unknown) Spleen: Normal in (units (unknown) date) size. unknown) (unknown) (no (unknown) (unknown) Stomach and (units (un known) date) Bowel: Stomach, unknown) small bowel loops, and colon are normal in caliber (unknown) (no (unknown) (unknown) TECHNIQUE: (units (unk nown) date) unknown) (unknown) (no (unknown) (unknown) Ventral Wall: No (units (unknown) date) hernia. unknown) (unknown) (no (unknown) (unknown) Vessels: Aorta (units (unknown) date) and inferior vena unknown) cava are normal in size. (unknown) (no (unknown) (unknown) and wall (units (unkno wn) date) unknown) (unknown) (no (unknown) (unknown) and/or kV (units (unkn own) date) according to unknown) patient size. (unknown) (no (unknown) (unknown) asymmetrically (units (unknown) date) delayed right unknown) nephrogram is demonstrated. There is a (unknown) (no (unknown) (unknown) demonstrates no (units (unknown) date) hydronephrosis. unknown) There are at least 3 small nonobstructing (unknown) (no (unknown) (unknown) dose reduction, (units (unknown) date) the following was unknown) used: automated exposure control, adjustment (unknown) (no (unknown) (unknown) hydronephrosis (units (unknown) date) and delayed right unknown) nephrogram. (unknown) (no (unknown) (unknown) kidney (units (unkno wn) date) unknown) (unknown) (no (unknown) (unknown) lung bases (units (unk nown) date) unknown) (unknown) (no (unknown) (unknown) mild right (units (unk nown) date) unknown) (unknown) (no (unknown) (unknown) nonobstructing (units (unknown) date) stone unknown) (unknown) (no (unknown) (unknown) of mA (units (unkno wn) date) unknown) (unknown) (no (unknown) (unknown) proximal right (units (unknown) date) unknown) (unknown) (no (unknown) (unknown) radiation (units (unkn own) date) unknown) (unknown) (no (unknown) (unknown) stones with (units (un known) date) unknown) (unknown) (no (unknown) (unknown) the largest (units (un known) date) measuring up to unknown) 0.2 cm. Left ureter is nondistended. (unknown) (no (unknown) (unknown) thickness. The (units (unknown) date) appendix is unknown) normal. (unknown) (no (unknown) (unknown) to the pubic (units (u nknown) date) symphysis. Coronal unknown) and sagittal reformats were performed. For (unknown) (no (unknown) (unknown) ureter, measuring (units (unknown) date) up to unknown) approximately 0.3 cm with mild right hydronephrosis. (unknown) (no (unknown) (unknown) within the (units (unk nown) date) inferior pole of unknown) the right kidney measuring up to 0.4 cm. The left Result panel 187 (unknown) (no (unknown) (unknown) (no value) (units (unk nown) date) unknown) (unknown) (no (unknown) (unknown) 01/17/23 (units (unkno wn) date) 01/17/23 01/17/23 unknown) Range/Units (unknown) (no (unknown) (unknown) 01/17/23 20:15 (units (unknown) date) unknown) (unknown) (no (unknown) (unknown) 01/17/23 20:25 (units (unknown) date) unknown) (unknown) (no (unknown) (unknown) 01/17/23 (units (unkno wn) date) unknown) (unknown) (no (unknown) (unknown) 1 tab PO BID (units (u nknown) date) Qty: 20 0RF unknown) (unknown) (no (unknown) (unknown) 1 tab PO Q6H PRN (units (unknown) date) (Reason: pain) unknown) Qty: 10 0RF (unknown) (no (unknown) (unknown) 20:07 (units (unkno wn) date) unknown) (unknown) (no (unknown) (unknown) 20:15 20:25 (units (un known) date) 20:25 unknown) (unknown) (no (unknown) (unknown) 4 mg PO Q8H PRN (units (unknown) date) (Reason: nausea unknown) and vomiting) Qty: 10 0RF (unknown) (no (unknown) (unknown) [address] (units (unkno wn) date) unknown) (unknown) (no (unknown) (unknown) ALT 39 (<50) (units (u nknown) date) IU/L unknown) (unknown) (no (unknown) (unknown) AST 30 (17-59) (units (unknown) date) IU/L unknown) (unknown) (no (unknown) (unknown) Age/Sex: 32 / M (units (unknown) date) unknown) (unknown) (no (unknown) (unknown) Albumin 4.7 (units (un known) date) (3.5-5.0) g/dL unknown) (unknown) (no (unknown) (unknown) Albumin/Globulin (units (unknown) date) Ratio 1.3 unknown) (1.0-2.8) (unknown) (no (unknown) (unknown) Alkaline (units (unkno wn) date) Phosphatase 88 unknown) (38-126) U/L (unknown) (no (unknown) (unknown) Allergies (units (unkn own) date) unknown) (unknown) (no (unknown) (unknown) Allergy/AdvReac (units (unknown) date) Type Severity unknown) Reaction Status Date / Time (unknown) (no (unknown) (unknown) BUN 19 (9-20) (units ( unknown) date) mg/dL unknown) (unknown) (no (unknown) (unknown) BUN/Creatinine (units (unknown) date) Ratio 16.2 (6-22) unknown) (unknown) (no (unknown) (unknown) Baso # (Auto) (units ( unknown) date) 100 (0-100) /uL unknown) (unknown) (no (unknown) (unknown) Baso % (Auto) (units ( unknown) date) 0.5 (0-2) % unknown) (unknown) (no (unknown) (unknown) Bedside Urine (units ( unknown) date) Bilirubin - unknown) Negative (unknown) (no (unknown) (unknown) Bedside Urine (units ( unknown) date) Glucose Negative unknown) (unknown) (no (unknown) (unknown) Bedside Urine (units ( unknown) date) Ketone - Negative unknown) (unknown) (no (unknown) (unknown) Bedside Urine (units ( unknown) date) Leukocytes - unknown) Negative (unknown) (no (unknown) (unknown) Bedside Urine (units ( unknown) date) Nitrite - unknown) Negative (unknown) (no (unknown) (unknown) Bedside Urine (units ( unknown) date) Occult Blood unknown) (unknown) (no (unknown) (unknown) Bedside Urine (units ( unknown) date) Protein - unknown) Negative (unknown) (no (unknown) (unknown) Bedside Urine (units ( unknown) date) Urobilinogen - unknown) Negative (unknown) (no (unknown) (unknown) Bedside Urine pH (units (unknown) date) 6.0 unknown) (unknown) (no (unknown) (unknown) Blood Pressure (units (unknown) date) 162/98 H 01/17/23 unknown) 20:07 (unknown) (no (unknown) (unknown) Blood Pressure (units (unknown) date) 162/98 H unknown) (unknown) (no (unknown) (unknown) Calcium 9.3 (units (un known) date) (8.4-10.2) mg/dL unknown) (unknown) (no (unknown) (unknown) Carbon Dioxide (units (unknown) date) 29 (22-32) mmol/L unknown) (unknown) (no (unknown) (unknown) Chief complaint: (units (unknown) date) Abdominal Pain unknown) (unknown) (no (unknown) (unknown) Chloride 100 (units (u nknown) date) (98-107) mmol/L unknown) (unknown) (no (unknown) (unknown) Complete Blood (units (unknown) date) Count AUTO DIFF unknown) Stat (unknown) (no (unknown) (unknown) Comprehensive (units ( unknown) date) Metabolic Panel unknown) Stat (unknown) (no (unknown) (unknown) Course (units (unkno wn) date) unknown) (unknown) (no (unknown) (unknown) Creatinine 1.17 (units (unknown) date) (0.66-1.25) mg/dL unknown) (unknown) (no (unknown) (unknown) : 1990 (units (unknown) date) Acct:[id number] unknown) (unknown) (no (unknown) (unknown) Date of Service: (units (unknown) date) 01/17/23 unknown) (unknown) (no (unknown) (unknown) Departure (units (unkn own) date) unknown) (unknown) (no (unknown) (unknown) Discharge Plan (units (unknown) date) unknown) (unknown) (no (unknown) (unknown) ED Orders (units (unkn own) date) unknown) (unknown) (no (unknown) (unknown) EKG-12 Lead Stat (units (unknown) date) unknown) (unknown) (no (unknown) (unknown) ER Physician: (units ( unknown) date) Zackery Velazquez unknown) D.O. (unknown) (no (unknown) (unknown) Emergency Report (units (unknown) date) unknown) (unknown) (no (unknown) (unknown) Eos # (Auto) 300 (units (unknown) date) (0-450) /uL unknown) (unknown) (no (unknown) (unknown) Eos % (Auto) 2.5 (units (unknown) date) (2-4) % unknown) (unknown) (no (unknown) (unknown) Esterase (units (unkno wn) date) unknown) (unknown) (no (unknown) (unknown) Estimated GFR > (units (unknown) date) 60 (>60) mL/min unknown) (unknown) (no (unknown) (unknown) Exam (units (unkno wn) date) unknown) (unknown) (no (unknown) (unknown) General (units (unkno wn) date) unknown) (unknown) (no (unknown) (unknown) Globulin 3.7 (units (u nknown) date) (1.7-4.1) g/dL unknown) (unknown) (no (unknown) (unknown) Glucose 96 (units (unk nown) date) (70-100) mg/dL unknown) (unknown) (no (unknown) (unknown) HPI - General (units ( unknown) date) Adult unknown) (unknown) (no (unknown) (unknown) Hct 45.8 (41-53) (units (unknown) date) % unknown) (unknown) (no (unknown) (unknown) Hgb 15.5 (units (unkno wn) date) (13.5-17.5) g/dL unknown) (unknown) (no (unknown) (unknown) Initial Vital (units ( unknown) date) Signs unknown) (unknown) (no (unknown) (unknown) Initial Vital (units ( unknown) date) Signs: unknown) (unknown) (no (unknown) (unknown) [facility] (units (unknown) date) [address] unknown) [place] [address] (unknown) (no (unknown) (unknown) Lab Data (units (unkno wn) date) unknown) (unknown) (no (unknown) (unknown) Lab Results (units (un known) date) unknown) (unknown) (no (unknown) (unknown) Labs: (units (unkno wn) date) unknown) (unknown) (no (unknown) (unknown) Lipase 75 (units (unkn own) date) (23-300) U/L unknown) (unknown) (no (unknown) (unknown) Lipase Stat (units (un known) date) unknown) (unknown) (no (unknown) (unknown) Lymph # (Auto) (units (unknown) date) 2200 ([id number]) unknown) /uL (unknown) (no (unknown) (unknown) Lymph % (Auto) (units (unknown) date) 17.9 L (25-40) % unknown) (unknown) (no (unknown) (unknown) MCH 29.2 (26-34) (units (unknown) date) PG unknown) (unknown) (no (unknown) (unknown) MCHC 33.9 (units (unkn own) date) (30-36) % unknown) (unknown) (no (unknown) (unknown) MCV 86.1 (units (unkno wn) date) (80-100) fL unknown) (unknown) (no (unknown) (unknown) Medical Decision (units (unknown) date) Making unknown) (unknown) (no (unknown) (unknown) Medication (units (unk nown) date) Instructions unknown) Recorded (unknown) (no (unknown) (unknown) Mode of arrival: (units (unknown) date) Ambulatory unknown) (unknown) (no (unknown) (unknown) Holmes # (Auto) (units ( unknown) date) 1200 H (0-900) unknown) /uL (unknown) (no (unknown) (unknown) Holmes % (Auto) (units ( unknown) date) 9.9 (3-14) % unknown) (unknown) (no (unknown) (unknown) Neut # (Auto) (units ( unknown) date) 8500 H unknown) ([id number]) /uL (unknown) (no (unknown) (unknown) Neut % (Auto) (units ( unknown) date) 69.2 (50-75) % unknown) (unknown) (no (unknown) (unknown) No Action (units (unkn own) date) unknown) (unknown) (no (unknown) (unknown) No Known Drug (units ( unknown) date) Allergies Allergy unknown) Verified 05/18/22 17:32 (unknown) (no (unknown) (unknown) Ondansetron HCl (units (unknown) date) (Ondansetron 4 Mg unknown) Odt) 4 mg PO NOW PRN (unknown) (no (unknown) (unknown) Ondansetron HCl (units (unknown) date) (Ondansetron 4 unknown) Mg/2 Ml Inj) 4 mg IV NOW PRN (unknown) (no (unknown) (unknown) Ordered: (units (unkno wn) date) unknown) (unknown) (no (unknown) (unknown) Orders (units (unkno wn) date) unknown) (unknown) (no (unknown) (unknown) Oxygen Delivery (units (unknown) date) Method Room Air unknown) 01/17/23 20:07 (unknown) (no (unknown) (unknown) Oxygen Delivery (units (unknown) date) Method Room Air unknown) (unknown) (no (unknown) (unknown) PRN Reason: (units (un known) date) Nausea And unknown) Vomiting (unknown) (no (unknown) (unknown) Patient History (units (unknown) date) unknown) (unknown) (no (unknown) (unknown) Patient: (units (unkno wn) date) Chapo Davis unknown) MR#: [id number] (unknown) (no (unknown) (unknown) Plt Count 254 (units ( unknown) date) (150-400) X103/uL unknown) (unknown) (no (unknown) (unknown) Point of care (units ( unknown) date) testing: unknown) (unknown) (no (unknown) (unknown) Potassium 4.0 (units ( unknown) date) (3.4-5.1) mmol/L unknown) (unknown) (no (unknown) (unknown) Prescriptions: (units (unknown) date) unknown) (unknown) (no (unknown) (unknown) Previous Rx's (units ( unknown) date) unknown) (unknown) (no (unknown) (unknown) Pulse Oximetry (units (unknown) date) 99 01/17/23 20:07 unknown) (unknown) (no (unknown) (unknown) Pulse Oximetry (units (unknown) date) 99 unknown) (unknown) (no (unknown) (unknown) Pulse Rate 90 (units ( unknown) date) 01/17/23 20:07 unknown) (unknown) (no (unknown) (unknown) Pulse Rate 90 (units ( unknown) date) unknown) (unknown) (no (unknown) (unknown) RBC 5.32 (units (unkno wn) date) (4.5-5.9) X106/uL unknown) (unknown) (no (unknown) (unknown) RDW 12.8 (units (unkno wn) date) (11.6-14.8) % unknown) (unknown) (no (unknown) (unknown) Referrals: (units (unk nown) date) unknown) (unknown) (no (unknown) (unknown) Related Data (units (u nknown) date) unknown) (unknown) (no (unknown) (unknown) Respiratory Rate (units (unknown) date) 20 01/17/23 20:07 unknown) (unknown) (no (unknown) (unknown) Respiratory Rate (units (unknown) date) 20 unknown) (unknown) (no (unknown) (unknown) Signed By: (units (unk nown) date) unknown) (unknown) (no (unknown) (unknown) Smoking Status: (units (unknown) date) Never smoker unknown) (unknown) (no (unknown) (unknown) Social History (units (unknown) date) (Reviewed unknown) 12/23/22 @ 02:28 by Nicole Gray DO) (unknown) (no (unknown) (unknown) Sodium 138 (units (unk nown) date) (137-145) mmol/L unknown) (unknown) (no (unknown) (unknown) Source: patient (units (unknown) date) unknown) (unknown) (no (unknown) (unknown) Stated (units (unkno wn) date) complaint: lower unknown) rt sided abd pain (unknown) (no (unknown) (unknown) Substance Use (units ( unknown) date) Type: does not unknown) use (unknown) (no (unknown) (unknown) Temperature 98.1 (units (unknown) date) F 01/17/23 20:07 unknown) (unknown) (no (unknown) (unknown) Temperature 98.1 (units (unknown) date) F unknown) (unknown) (no (unknown) (unknown) Time Seen by (units (u nknown) date) Provider: unknown) 01/17/23 21:57 (unknown) (no (unknown) (unknown) Total Bilirubin (units (unknown) date) 0.5 (0.2-1.3) unknown) mg/dL (unknown) (no (unknown) (unknown) Total Protein (units ( unknown) date) 8.4 H (6.3-8.2) unknown) g/dL (unknown) (no (unknown) (unknown) Ur Culture (units (unk nown) date) Indicated? Cult unknown) not indicated (unknown) (no (unknown) (unknown) Ur Squamous (units (un known) date) Epith Cells 1-5 unknown) /hpf (0-5/HPF) (unknown) (no (unknown) (unknown) Urine Bacteria (units (unknown) date) None seen (None) unknown) (unknown) (no (unknown) (unknown) Urine Dip (units (unkn own) date) unknown) (unknown) (no (unknown) (unknown) Urine (units (unkno wn) date) Microscopic Stat unknown) (unknown) (no (unknown) (unknown) Urine RBC (units (unkn own) date) 5-10/hpf H unknown) (0-5/HPF) (unknown) (no (unknown) (unknown) Urine Specific (units (unknown) date) [place] 1.010 unknown) (unknown) (no (unknown) (unknown) Urine WBC (units (unkn own) date) 1-5/hpf (0-5/HPF) unknown) (unknown) (no (unknown) (unknown) Vital Signs - 8 (units (unknown) date) hr unknown) (unknown) (no (unknown) (unknown) Vital Signs (units (un known) date) unknown) (unknown) (no (unknown) (unknown) Vital signs: (units (u nknown) date) unknown) (unknown) (no (unknown) (unknown) WBC 12.2 H (units (unk nown) date) (4.5-11.0) unknown) X103/uL (unknown) (no (unknown) (unknown) Kathie Otero, (units (unknown) date) PA-C [Primary unknown) Care Provider] (unknown) (no (unknown) (unknown) [Embedded Image (units (unknown) date) Not Available] unknown) (unknown) (no (unknown) (unknown) alcohol intake (units (unknown) date) frequency: 0-2 unknown) drinks per day (unknown) (no (unknown) (unknown) amoxicillin 875 (units (unknown) date) mg-potassium 1 unknown) tab PO BID #20 tabs 05/18/22 (unknown) (no (unknown) (unknown) amoxicillin-pot (units (unknown) date) clavulanate unknown) 875-125 mg tablet (unknown) (no (unknown) (unknown) clavulanate 125 (units (unknown) date) mg tablet unknown) (unknown) (no (unknown) (unknown) hydrocodone 5 (units ( unknown) date) mg-acetaminophen unknown) 325 1 tab PO Q6H PRN pain #10 tabs 12/23/22 (unknown) (no (unknown) (unknown) hydrocodone-acet (units (unknown) date) aminophen 5-325 unknown) mg tablet (unknown) (no (unknown) (unknown) mg tablet (units (unkn own) date) unknown) (unknown) (no (unknown) (unknown) ondansetron 4 mg (units (unknown) date) disintegrating 4 unknown) mg PO Q8H PRN nausea and 12/23/22 (unknown) (no (unknown) (unknown) ondansetron 4 mg (units (unknown) date) tablet,disintegra unknown) ting (unknown) (no (unknown) (unknown) tablet vomiting (units (unknown) date) #10 tabs unknown) Result panel 188 (unknown) (no (unknown) (unknown) (no value) (units (unk nown) date) unknown) (unknown) (no (unknown) (unknown) 00:27 (units (unkno wn) date) unknown) (unknown) (no (unknown) (unknown) 01/17/23 01/17/23 (units (unknown) date) 01/17/23 unknown) Range/Units (unknown) (no (unknown) (unknown) 01/17/23 20:15 (units (unknown) date) unknown) (unknown) (no (unknown) (unknown) 01/17/23 20:25 (units (unknown) date) unknown) (unknown) (no (unknown) (unknown) 01/17/23 22:02 (units (unknown) date) unknown) (unknown) (no (unknown) (unknown) 01/17/23 (units (unkno wn) date) unknown) (unknown) (no (unknown) (unknown) 1 tab PO BID Qty: (units (unknown) date) 20 0RF unknown) (unknown) (no (unknown) (unknown) 1 tab PO Q6H PRN (units (unknown) date) (Reason: pain) unknown) Qty: 10 0RF (unknown) (no (unknown) (unknown) 1. Obstructing (units (unknown) date) urinary stone in unknown) the proximal right ureter redemonstrated with (unknown) (no (unknown) (unknown) 1:28.? (units (unkno wn) date) unknown) (unknown) (no (unknown) (unknown) 2. Additional (units ( unknown) date) small bilateral unknown) nonobstructing renal stones as described. (unknown) (no (unknown) (unknown) 20:07 01/18/23 (units (unknown) date) unknown) (unknown) (no (unknown) (unknown) 20:15 20:25 20:25 (units (unknown) date) unknown) (unknown) (no (unknown) (unknown) 3. No evidence of (units (unknown) date) appendicitis.? unknown) (unknown) (no (unknown) (unknown) 4 mg PO Q8H PRN (units (unknown) date) (Reason: nausea unknown) and vomiting) Qty: 10 0RF (unknown) (no (unknown) (unknown) [id number] (units (unkno wn) date) unknown) (unknown) (no (unknown) (unknown) ? (units (unkno wn) date) unknown) (unknown) (no (unknown) (unknown) ABDOMEN: (units (unkno wn) date) unknown) (unknown) (no (unknown) (unknown) ALT 39 (<50) IU/L (units (unknown) date) unknown) (unknown) (no (unknown) (unknown) AST 30 (17-59) (units (unknown) date) IU/L unknown) (unknown) (no (unknown) (unknown) Abdominal Nodes:? (units (unknown) date) No retroperitoneal unknown) or mesenteric adenopathy by size criteria.? (unknown) (no (unknown) (unknown) Abdominal pain (units (unknown) date) unknown) (unknown) (no (unknown) (unknown) Activity (units (unkno wn) date) Restrictions/Addit unknown) ional Instructions: (unknown) (no (unknown) (unknown) Adrenal Glands:? (units (unknown) date) No adrenal unknown) nodules.? ? (unknown) (no (unknown) (unknown) After the (units (unkn own) date) administration of unknown) IV contrast, axial sections were acquired from the (unknown) (no (unknown) (unknown) Age/Sex: 32 / M (units (unknown) date) unknown) (unknown) (no (unknown) (unknown) Albumin 4.7 (units (un known) date) (3.5-5.0) g/dL unknown) (unknown) (no (unknown) (unknown) Albumin/Globulin (units (unknown) date) Ratio 1.3 unknown) (1.0-2.8) (unknown) (no (unknown) (unknown) Alkaline (units (unkno wn) date) Phosphatase 88 unknown) (38-126) U/L (unknown) (no (unknown) (unknown) Allergies (units (unkn own) date) unknown) (unknown) (no (unknown) (unknown) Allergy/AdvReac (units (unknown) date) Type Severity unknown) Reaction Status Date / Time (unknown) (no (unknown) (unknown) Associated (units (unk nown) date) unknown) (unknown) (no (unknown) (unknown) BUN 19 (9-20) (units ( unknown) date) mg/dL unknown) (unknown) (no (unknown) (unknown) BUN/Creatinine (units (unknown) date) Ratio 16.2 (6-22) unknown) (unknown) (no (unknown) (unknown) Baso # (Auto) 100 (units (unknown) date) (0-100) /uL unknown) (unknown) (no (unknown) (unknown) Baso % (Auto) 0.5 (units (unknown) date) (0-2) % unknown) (unknown) (no (unknown) (unknown) Bedside Urine (units ( unknown) date) Bilirubin - unknown) Negative (unknown) (no (unknown) (unknown) Bedside Urine (units ( unknown) date) Glucose Negative unknown) (unknown) (no (unknown) (unknown) Bedside Urine (units ( unknown) date) Ketone - Negative unknown) (unknown) (no (unknown) (unknown) Bedside Urine (units ( unknown) date) Leukocytes - unknown) Negative (unknown) (no (unknown) (unknown) Bedside Urine (units ( unknown) date) Nitrite - Negative unknown) (unknown) (no (unknown) (unknown) Bedside Urine (units ( unknown) date) Occult Blood unknown) (unknown) (no (unknown) (unknown) Bedside Urine (units ( unknown) date) Protein - Negative unknown) (unknown) (no (unknown) (unknown) Bedside Urine (units ( unknown) date) Urobilinogen - unknown) Negative (unknown) (no (unknown) (unknown) Bedside Urine pH (units (unknown) date) 6.0 unknown) (unknown) (no (unknown) (unknown) Biliary ducts:? (units (unknown) date) No biliary ductal unknown) dilatation.? ? (unknown) (no (unknown) (unknown) Bladder:? (units (unkn own) date) Unremarkable.? ? unknown) (unknown) (no (unknown) (unknown) Blood Pressure (units (unknown) date) 162/98 H 01/17/23 unknown) 20:07 (unknown) (no (unknown) (unknown) Blood Pressure (units (unknown) date) 162/98 H 135/85 unknown) (unknown) (no (unknown) (unknown) Bones:? (units (unkno wn) date) Visualized osseous unknown) structures demonstrate no suspicious focal lesions. (unknown) (no (unknown) (unknown) COMPARISON:? (units (u nknown) date) [facility], unknown) CT, CT KIDNEY URETER BLADDER (KUB), 12/23/2022, (unknown) (no (unknown) (unknown) CT abdomen pelvis (units (unknown) date) w con Stat unknown) (unknown) (no (unknown) (unknown) CT scan - (units (unkn own) date) abdomen/pelvis: unknown) (unknown) (no (unknown) (unknown) Calcium 9.3 (units (un known) date) (8.4-10.2) mg/dL unknown) (unknown) (no (unknown) (unknown) Carbon Dioxide 29 (units (unknown) date) (22-32) mmol/L unknown) (unknown) (no (unknown) (unknown) Chief complaint: (units (unknown) date) Abdominal Pain unknown) (unknown) (no (unknown) (unknown) Chloride 100 (units (u nknown) date) (98-107) mmol/L unknown) (unknown) (no (unknown) (unknown) Clinical (units (unkno wn) date) Impression: unknown) (unknown) (no (unknown) (unknown) Complete Blood (units (unknown) date) Count AUTO DIFF unknown) Stat (unknown) (no (unknown) (unknown) Comprehensive (units ( unknown) date) Metabolic Panel unknown) Stat (unknown) (no (unknown) (unknown) Course (units (unkno wn) date) unknown) (unknown) (no (unknown) (unknown) Creatinine 1.17 (units (unknown) date) (0.66-1.25) mg/dL unknown) (unknown) (no (unknown) (unknown) : 1990 (units (unknown) date) Acct:[id number] unknown) (unknown) (no (unknown) (unknown) Date of Service: (units (unknown) date) 01/17/23 unknown) (unknown) (no (unknown) (unknown) Departure (units (unkn own) date) unknown) (unknown) (no (unknown) (unknown) Discharge Plan (units (unknown) date) unknown) (unknown) (no (unknown) (unknown) Discontinued (units (u nknown) date) Medications unknown) (unknown) (no (unknown) (unknown) ED Orders (units (unkn own) date) unknown) (unknown) (no (unknown) (unknown) EKG-12 Lead Stat (units (unknown) date) unknown) (unknown) (no (unknown) (unknown) ER Physician: (units ( unknown) date) Zackery Velazquez unknown) D.ORobinson (unknown) (no (unknown) (unknown) Emergency Report (units (unknown) date) unknown) (unknown) (no (unknown) (unknown) Eos # (Auto) 300 (units (unknown) date) (0-450) /uL unknown) (unknown) (no (unknown) (unknown) Eos % (Auto) 2.5 (units (unknown) date) (2-4) % unknown) (unknown) (no (unknown) (unknown) Esterase (units (unkno wn) date) unknown) (unknown) (no (unknown) (unknown) Estimated GFR > (units (unknown) date) 60 (>60) mL/min unknown) (unknown) (no (unknown) (unknown) Exam (units (unkno wn) date) unknown) (unknown) (no (unknown) (unknown) FINDINGS:? (units (unk nown) date) unknown) (unknown) (no (unknown) (unknown) Gallbladder:? (units ( unknown) date) Within normal unknown) limits without calcified gallstones.? ? (unknown) (no (unknown) (unknown) General (units (unkno wn) date) unknown) (unknown) (no (unknown) (unknown) Globulin 3.7 (units (u nknown) date) (1.7-4.1) g/dL unknown) (unknown) (no (unknown) (unknown) Glucose 96 (units (unk nown) date) (70-100) mg/dL unknown) (unknown) (no (unknown) (unknown) HPI - General (units ( unknown) date) Adult unknown) (unknown) (no (unknown) (unknown) Hct 45.8 (41-53) (units (unknown) date) % unknown) (unknown) (no (unknown) (unknown) Heart:? Heart is (units (unknown) date) normal in size. unknown) (unknown) (no (unknown) (unknown) Hgb 15.5 (units (unkno wn) date) (13.5-17.5) g/dL unknown) (unknown) (no (unknown) (unknown) I do recommend (units (unknown) date) that you keep all unknown) of your scheduled medical appointments and (unknown) (no (unknown) (unknown) IMPRESSION:? (units (u nknown) date) unknown) (unknown) (no (unknown) (unknown) INDICATIONS:? RLQ (units (unknown) date) abd pain eval for unknown) appy (unknown) (no (unknown) (unknown) Image quality:? (units (unknown) date) Excellent.? unknown) (unknown) (no (unknown) (unknown) Imaging Data (units (u nknown) date) unknown) (unknown) (no (unknown) (unknown) Initial Vital (units ( unknown) date) Signs unknown) (unknown) (no (unknown) (unknown) Initial Vital (units ( unknown) date) Signs: unknown) (unknown) (no (unknown) (unknown) Instructions: DI (units (unknown) date) for Abdominal unknown) Pain-Adult (unknown) (no (unknown) (unknown) [facility] (units (unknown) date) [address] unknown) [place] [address] (unknown) (no (unknown) (unknown) [facility], (units (unknown) date) CT, CT ABDOMEN unknown) PELVIS W CON, 05/18/2022, 19:05. (unknown) (no (unknown) (unknown) Jesika Martinez, (units (unknown) date) [Physician] unknown) (unknown) (no (unknown) (unknown) Kidneys and (units (un known) date) Ureters:? There is unknown) a persistent obstructing stone within the (unknown) (no (unknown) (unknown) Lab Data (units (unkno wn) date) unknown) (unknown) (no (unknown) (unknown) Lab Results (units (un known) date) unknown) (unknown) (no (unknown) (unknown) Lab results (units (un known) date) reviewed: Yes I unknown) reviewed the patient's lab results. (unknown) (no (unknown) (unknown) Labs: (units (unkno wn) date) unknown) (unknown) (no (unknown) (unknown) Lipase 75 (units (unkn own) date) (23-300) U/L unknown) (unknown) (no (unknown) (unknown) Lipase Stat (units (un known) date) unknown) (unknown) (no (unknown) (unknown) Liver:? No mass (units (unknown) date) lesion. unknown) (unknown) (no (unknown) (unknown) Lung bases:? (units (u nknown) date) Unremarkable.? ? unknown) (unknown) (no (unknown) (unknown) Lymph # (Auto) (units (unknown) date) 2200 ([id number]) unknown) /uL (unknown) (no (unknown) (unknown) Lymph % (Auto) (units (unknown) date) 17.9 L (25-40) % unknown) (unknown) (no (unknown) (unknown) MCH 29.2 (26-34) (units (unknown) date) PG unknown) (unknown) (no (unknown) (unknown) MCHC 33.9 (30-36) (units (unknown) date) % unknown) (unknown) (no (unknown) (unknown) MCV 86.1 (80-100) (units (unknown) date) fL unknown) (unknown) (no (unknown) (unknown) Medical Decision (units (unknown) date) Making unknown) (unknown) (no (unknown) (unknown) Medical Records (units (unknown) date) unknown) (unknown) (no (unknown) (unknown) Medical records (units (unknown) date) reviewed: Yes I unknown) reviewed the patient's medical records. (unknown) (no (unknown) (unknown) Medication (units (unk nown) date) Instructions unknown) Recorded (unknown) (no (unknown) (unknown) Miscellaneous: No (units (unknown) date) inguinal hernias unknown) are seen. ? ? (unknown) (no (unknown) (unknown) Mode of arrival: (units (unknown) date) Ambulatory unknown) (unknown) (no (unknown) (unknown) Holmes # (Auto) (units ( unknown) date) 1200 H (0-900) /uL unknown) (unknown) (no (unknown) (unknown) Holmes % (Auto) 9.9 (units (unknown) date) (3-14) % unknown) (unknown) (no (unknown) (unknown) Neut # (Auto) (units ( unknown) date) 8500 H (0155-8280) unknown) /uL (unknown) (no (unknown) (unknown) Neut % (Auto) (units ( unknown) date) 69.2 (50-75) % unknown) (unknown) (no (unknown) (unknown) No Action (units (unkn own) date) unknown) (unknown) (no (unknown) (unknown) No Known Drug (units ( unknown) date) Allergies Allergy unknown) Verified 05/18/22 17:32 (unknown) (no (unknown) (unknown) Ondansetron HCl (units (unknown) date) (Ondansetron 4 Mg unknown) Odt) 4 mg PO NOW PRN (unknown) (no (unknown) (unknown) Ondansetron HCl (units (unknown) date) (Ondansetron 4 unknown) Mg/2 Ml Inj) 4 mg IV NOW PRN (unknown) (no (unknown) (unknown) Ordered: (units (unkno wn) date) unknown) (unknown) (no (unknown) (unknown) Orders (units (unkno wn) date) unknown) (unknown) (no (unknown) (unknown) Oxygen Delivery (units (unknown) date) Method Room Air unknown) 01/17/23 20:07 (unknown) (no (unknown) (unknown) Oxygen Delivery (units (unknown) date) Method Room Air unknown) Room Air (unknown) (no (unknown) (unknown) PELVIS: (units (unkno wn) date) unknown) (unknown) (no (unknown) (unknown) PRN Reason: (units (un known) date) Nausea And unknown) Vomiting (unknown) (no (unknown) (unknown) PROCEDURE:? CT (units (unknown) date) ABDOMEN PELVIS W unknown) CON (unknown) (no (unknown) (unknown) Pancreas:? (units (unk nown) date) Unremarkable.? ? unknown) (unknown) (no (unknown) (unknown) Patient (units (unkno wn) date) Disposition: Home unknown) (unknown) (no (unknown) (unknown) Patient History (units (unknown) date) unknown) (unknown) (no (unknown) (unknown) Patient: (units (unkno wn) date) [place] MR#: unknown) [id number] (unknown) (no (unknown) (unknown) Pelvic Nodes: No (units (unknown) date) enlarged lymph unknown) nodes.? (unknown) (no (unknown) (unknown) Pelvic Organs:? (units (unknown) date) Unremarkable.? ? unknown) (unknown) (no (unknown) (unknown) Peritoneum:? No (units (unknown) date) abnormal unknown) intraperitoneal fluid.? No free air.? (unknown) (no (unknown) (unknown) Plt Count 254 (units ( unknown) date) (150-400) X103/uL unknown) (unknown) (no (unknown) (unknown) Point of care (units ( unknown) date) testing: unknown) (unknown) (no (unknown) (unknown) Potassium 4.0 (units ( unknown) date) (3.4-5.1) mmol/L unknown) (unknown) (no (unknown) (unknown) Prescriptions: (units (unknown) date) unknown) (unknown) (no (unknown) (unknown) Previous Rx's (units ( unknown) date) unknown) (unknown) (no (unknown) (unknown) Pulse Oximetry 99 (units (unknown) date) 01/17/23 20:07 unknown) (unknown) (no (unknown) (unknown) Pulse Oximetry 99 (units (unknown) date) 97 unknown) (unknown) (no (unknown) (unknown) Pulse Rate 90 (units ( unknown) date) 01/17/23 20:07 unknown) (unknown) (no (unknown) (unknown) Pulse Rate 90 91 (units (unknown) date) H unknown) (unknown) (no (unknown) (unknown) RBC 5.32 (units (unkno wn) date) (4.5-5.9) X106/uL unknown) (unknown) (no (unknown) (unknown) RDW 12.8 (units (unkno wn) date) (11.6-14.8) % unknown) (unknown) (no (unknown) (unknown) Radiologist's (units ( unknown) date) Impression: unknown) (unknown) (no (unknown) (unknown) Referrals: (units (unk nown) date) unknown) (unknown) (no (unknown) (unknown) Related Data (units (u nknown) date) unknown) (unknown) (no (unknown) (unknown) Respiratory Rate (units (unknown) date) 20 01/17/23 20:07 unknown) (unknown) (no (unknown) (unknown) Respiratory Rate (units (unknown) date) 20 18 unknown) (unknown) (no (unknown) (unknown) Signed By: (units (unk nown) date) unknown) (unknown) (no (unknown) (unknown) Smoking Status: (units (unknown) date) Never smoker unknown) (unknown) (no (unknown) (unknown) Social History (units (unknown) date) (Reviewed 12/23/22 unknown) @ 02:28 by Nicole Gray DO) (unknown) (no (unknown) (unknown) Sodium 138 (units (unk nown) date) (137-145) mmol/L unknown) (unknown) (no (unknown) (unknown) Source: patient (units (unknown) date) unknown) (unknown) (no (unknown) (unknown) Spleen:? Normal (units (unknown) date) in size.? ? unknown) (unknown) (no (unknown) (unknown) Stand Alone (units (un known) date) Forms: Patient unknown) Portal/API (unknown) (no (unknown) (unknown) Stated complaint: (units (unknown) date) lower rt sided abd unknown) pain (unknown) (no (unknown) (unknown) Stomach and (units (un known) date) Bowel:? Stomach, unknown) small bowel loops, and colon are normal in caliber (unknown) (no (unknown) (unknown) Substance Use (units ( unknown) date) Type: does not use unknown) (unknown) (no (unknown) (unknown) TECHNIQUE:? (units (un known) date) unknown) (unknown) (no (unknown) (unknown) Temperature 98.1 (units (unknown) date) F 01/17/23 20:07 unknown) (unknown) (no (unknown) (unknown) Temperature 98.1 (units (unknown) date) F unknown) (unknown) (no (unknown) (unknown) Time Seen by (units (u nknown) date) Provider: 01/17/23 unknown) 21:57 (unknown) (no (unknown) (unknown) Total Bilirubin (units (unknown) date) 0.5 (0.2-1.3) unknown) mg/dL (unknown) (no (unknown) (unknown) Total Protein 8.4 (units (unknown) date) H (6.3-8.2) g/dL unknown) (unknown) (no (unknown) (unknown) Ur Culture (units (unk nown) date) Indicated? Cult unknown) not indicated (unknown) (no (unknown) (unknown) Ur Squamous Epith (units (unknown) date) Cells 1-5 /hpf unknown) (0-5/HPF) (unknown) (no (unknown) (unknown) Urine Bacteria (units (unknown) date) None seen (None) unknown) (unknown) (no (unknown) (unknown) Urine Dip (units (unkn own) date) unknown) (unknown) (no (unknown) (unknown) Urine Microscopic (units (unknown) date) Stat unknown) (unknown) (no (unknown) (unknown) Urine RBC (units (unkn own) date) 5-10/hpf H unknown) (0-5/HPF) (unknown) (no (unknown) (unknown) Urine Specific (units (unknown) date) [place] 1.010 unknown) (unknown) (no (unknown) (unknown) Urine WBC 1-5/hpf (units (unknown) date) (0-5/HPF) unknown) (unknown) (no (unknown) (unknown) Ventral Wall: ? (units (unknown) date) No hernia.? unknown) (unknown) (no (unknown) (unknown) Vessels:? Aorta (units (unknown) date) and inferior vena unknown) cava are normal in size.? (unknown) (no (unknown) (unknown) Vital Signs - 8 (units (unknown) date) hr unknown) (unknown) (no (unknown) (unknown) Vital Signs (units (un known) date) unknown) (unknown) (no (unknown) (unknown) Vital signs: (units (u nknown) date) unknown) (unknown) (no (unknown) (unknown) WBC 12.2 H (units (unk nown) date) (4.5-11.0) X103/uL unknown) (unknown) (no (unknown) (unknown) Kathie Otero, (units (unknown) date) PA-C [Primary Care unknown) Provider] (unknown) (no (unknown) (unknown) [Embedded Image (units (unknown) date) Not Available] unknown) (unknown) (no (unknown) (unknown) alcohol intake (units (unknown) date) frequency: 0-2 unknown) drinks per day (unknown) (no (unknown) (unknown) amoxicillin 875 (units (unknown) date) mg-potassium 1 tab unknown) PO BID #20 tabs 05/18/22 (unknown) (no (unknown) (unknown) amoxicillin-pot (units (unknown) date) clavulanate unknown) 875-125 mg tablet (unknown) (no (unknown) (unknown) and wall (units (unkno wn) date) unknown) (unknown) (no (unknown) (unknown) and/or kV (units (unkn own) date) according to unknown) patient size. (unknown) (no (unknown) (unknown) asymmetrically (units (unknown) date) delayed right unknown) nephrogram is demonstrated.? There is a (unknown) (no (unknown) (unknown) clavulanate 125 (units (unknown) date) mg tablet unknown) (unknown) (no (unknown) (unknown) contact the (units (un known) date) urologist that unknown) number provided below for follow-up. Return to the (unknown) (no (unknown) (unknown) demonstrates no (units (unknown) date) hydronephrosis.? unknown) There are at least 3 small nonobstructing (unknown) (no (unknown) (unknown) dose reduction, (units (unknown) date) the following was unknown) used:? automated exposure control, adjustment (unknown) (no (unknown) (unknown) emergency (units (unkn own) date) department for any unknown) new symptoms. (unknown) (no (unknown) (unknown) hydrocodone 5 (units ( unknown) date) mg-acetaminophen unknown) 325 1 tab PO Q6H PRN pain #10 tabs 12/23/22 (unknown) (no (unknown) (unknown) hydrocodone-aceta (units (unknown) date) minophen 5-325 mg unknown) tablet (unknown) (no (unknown) (unknown) hydronephrosis (units (unknown) date) and delayed right unknown) nephrogram. (unknown) (no (unknown) (unknown) kidney (units (unkno wn) date) unknown) (unknown) (no (unknown) (unknown) lung bases (units (unk nown) date) unknown) (unknown) (no (unknown) (unknown) mg tablet (units (unkn own) date) unknown) (unknown) (no (unknown) (unknown) mild right (units (unk nown) date) unknown) (unknown) (no (unknown) (unknown) nonobstructing (units (unknown) date) stone unknown) (unknown) (no (unknown) (unknown) of mA (units (unkno wn) date) unknown) (unknown) (no (unknown) (unknown) ondansetron 4 mg (units (unknown) date) disintegrating 4 unknown) mg PO Q8H PRN nausea and 12/23/22 (unknown) (no (unknown) (unknown) ondansetron 4 mg (units (unknown) date) tablet,disintegrat unknown) ing (unknown) (no (unknown) (unknown) proximal right (units (unknown) date) unknown) (unknown) (no (unknown) (unknown) radiation (units (unkn own) date) unknown) (unknown) (no (unknown) (unknown) stones with (units (un known) date) unknown) (unknown) (no (unknown) (unknown) tablet vomiting (units (unknown) date) #10 tabs unknown) (unknown) (no (unknown) (unknown) the largest (units (un known) date) measuring up to unknown) 0.2 cm.? Left ureter is nondistended.? (unknown) (no (unknown) (unknown) thickness.? The (units (unknown) date) appendix is unknown) normal.? (unknown) (no (unknown) (unknown) to the pubic (units (u nknown) date) symphysis.? unknown) Coronal and sagittal reformats were performed.? For (unknown) (no (unknown) (unknown) ureter, measuring (units (unknown) date) up to unknown) approximately 0.3 cm with mild right hydronephrosis.? (unknown) (no (unknown) (unknown) within the (units (unk nown) date) inferior pole of unknown) the right kidney measuring up to 0.4 cm.? The left Result panel 189 (unknown) (no (unknown) (unknown) (no value) (units (unk nown) date) unknown) (unknown) (no (unknown) (unknown) <Electronically (units (unknown) date) signed by Zackery Velazquez D.O.> (unknown) (no (unknown) (unknown) 00:27 (units (unkno wn) date) unknown) (unknown) (no (unknown) (unknown) 01/17/23 01/17/23 (units (unknown) date) 01/17/23 unknown) Range/Units (unknown) (no (unknown) (unknown) 01/17/23 20:15 (units (unknown) date) unknown) (unknown) (no (unknown) (unknown) 01/17/23 20:25 (units (unknown) date) unknown) (unknown) (no (unknown) (unknown) 01/17/23 22:02 (units (unknown) date) unknown) (unknown) (no (unknown) (unknown) 01/17/23 (units (unkno wn) date) unknown) (unknown) (no (unknown) (unknown) 01/18/23 0358 (units ( unknown) date) unknown) (unknown) (no (unknown) (unknown) 1 tab PO BID Qty: (units (unknown) date) 20 0RF unknown) (unknown) (no (unknown) (unknown) 1 tab PO Q6H PRN (units (unknown) date) (Reason: pain) Qty: unknown) 10 0RF (unknown) (no (unknown) (unknown) 1. Obstructing (units (unknown) date) urinary stone in unknown) the proximal right ureter redemonstrated with (unknown) (no (unknown) (unknown) 1:28.? (units (unkno wn) date) unknown) (unknown) (no (unknown) (unknown) 2. Additional (units ( unknown) date) small bilateral unknown) nonobstructing renal stones as described. (unknown) (no (unknown) (unknown) 20:07 01/18/23 (units (unknown) date) unknown) (unknown) (no (unknown) (unknown) 20:15 20:25 20:25 (units (unknown) date) unknown) (unknown) (no (unknown) (unknown) 3. No evidence of (units (unknown) date) appendicitis.? unknown) (unknown) (no (unknown) (unknown) 32-year-old male (units (unknown) date) who is here for unknown) evaluation approximately 1 week of intermittent (unknown) (no (unknown) (unknown) 4 mg PO Q8H PRN (units (unknown) date) (Reason: nausea and unknown) vomiting) Qty: 10 0RF (unknown) (no (unknown) (unknown) [id number] (units (unkno wn) date) unknown) (unknown) (no (unknown) (unknown) ? (units (unkno wn) date) unknown) (unknown) (no (unknown) (unknown) ABDOMEN: (units (unkno wn) date) unknown) (unknown) (no (unknown) (unknown) ALT 39 (<50) IU/L (units (unknown) date) unknown) (unknown) (no (unknown) (unknown) AST 30 (17-59) (units (unknown) date) IU/L unknown) (unknown) (no (unknown) (unknown) Abdominal Nodes:? (units (unknown) date) No retroperitoneal unknown) or mesenteric adenopathy by size criteria.? (unknown) (no (unknown) (unknown) Abdominal pain (units (unknown) date) unknown) (unknown) (no (unknown) (unknown) Activity (units (unkno wn) date) Restrictions/Additi unknown) onal Instructions: (unknown) (no (unknown) (unknown) Adrenal Glands:? (units (unknown) date) No adrenal unknown) nodules.? ? (unknown) (no (unknown) (unknown) After the (units (unkn own) date) administration of unknown) IV contrast, axial sections were acquired from the (unknown) (no (unknown) (unknown) Age/Sex: 32 / M (units (unknown) date) unknown) (unknown) (no (unknown) (unknown) Albumin 4.7 (units (un known) date) (3.5-5.0) g/dL unknown) (unknown) (no (unknown) (unknown) Albumin/Globulin (units (unknown) date) Ratio 1.3 (1.0-2.8) unknown) (unknown) (no (unknown) (unknown) Alkaline (units (unkno wn) date) Phosphatase 88 unknown) (38-126) U/L (unknown) (no (unknown) (unknown) Allergies (units (unkn own) date) unknown) (unknown) (no (unknown) (unknown) Allergy/AdvReac (units (unknown) date) Type Severity unknown) Reaction Status Date / Time (unknown) (no (unknown) (unknown) Associated (units (unk nown) date) unknown) (unknown) (no (unknown) (unknown) BUN 19 (9-20) (units ( unknown) date) mg/dL unknown) (unknown) (no (unknown) (unknown) BUN/Creatinine (units (unknown) date) Ratio 16.2 (6-22) unknown) (unknown) (no (unknown) (unknown) Back/Spine/Pelvis (units (unknown) date) unknown) (unknown) (no (unknown) (unknown) Back: No CVA (units (u nknown) date) tenderness unknown) (unknown) (no (unknown) (unknown) Baso # (Auto) 100 (units (unknown) date) (0-100) /uL unknown) (unknown) (no (unknown) (unknown) Baso % (Auto) 0.5 (units (unknown) date) (0-2) % unknown) (unknown) (no (unknown) (unknown) Bedside Urine (units ( unknown) date) Bilirubin - unknown) Negative (unknown) (no (unknown) (unknown) Bedside Urine (units ( unknown) date) Glucose Negative unknown) (unknown) (no (unknown) (unknown) Bedside Urine (units ( unknown) date) Ketone - Negative unknown) (unknown) (no (unknown) (unknown) Bedside Urine (units ( unknown) date) Leukocytes - unknown) Negative (unknown) (no (unknown) (unknown) Bedside Urine (units ( unknown) date) Nitrite - Negative unknown) (unknown) (no (unknown) (unknown) Bedside Urine (units ( unknown) date) Occult Blood unknown) (unknown) (no (unknown) (unknown) Bedside Urine (units ( unknown) date) Protein - Negative unknown) (unknown) (no (unknown) (unknown) Bedside Urine (units ( unknown) date) Urobilinogen - unknown) Negative (unknown) (no (unknown) (unknown) Bedside Urine pH (units (unknown) date) 6.0 unknown) (unknown) (no (unknown) (unknown) Biliary ducts:? No (units (unknown) date) biliary ductal unknown) dilatation.? ? (unknown) (no (unknown) (unknown) Bladder:? (units (unkn own) date) Unremarkable.? ? unknown) (unknown) (no (unknown) (unknown) Blood Pressure (units (unknown) date) 162/98 H 01/17/23 unknown) 20:07 (unknown) (no (unknown) (unknown) Blood Pressure (units (unknown) date) 162/98 H 135/85 unknown) (unknown) (no (unknown) (unknown) Bones:? Visualized (units (unknown) date) osseous structures unknown) demonstrate no suspicious focal lesions. (unknown) (no (unknown) (unknown) COMPARISON:? (units (u nknown) date) [facility], unknown) CT, CT KIDNEY URETER BLADDER (KUB), 12/23/2022, (unknown) (no (unknown) (unknown) CT abdomen pelvis (units (unknown) date) w con Stat unknown) (unknown) (no (unknown) (unknown) CT scan - (units (unkn own) date) abdomen/pelvis: unknown) (unknown) (no (unknown) (unknown) Calcium 9.3 (units (un known) date) (8.4-10.2) mg/dL unknown) (unknown) (no (unknown) (unknown) Carbon Dioxide 29 (units (unknown) date) (22-32) mmol/L unknown) (unknown) (no (unknown) (unknown) Cardio (units (unkno wn) date) unknown) (unknown) (no (unknown) (unknown) Chief complaint: (units (unknown) date) Abdominal Pain unknown) (unknown) (no (unknown) (unknown) Chloride 100 (units (u nknown) date) (98-107) mmol/L unknown) (unknown) (no (unknown) (unknown) Clinical (units (unkno wn) date) Impression: unknown) (unknown) (no (unknown) (unknown) Complete Blood (units (unknown) date) Count AUTO DIFF unknown) Stat (unknown) (no (unknown) (unknown) Comprehensive (units ( unknown) date) Metabolic Panel unknown) Stat (unknown) (no (unknown) (unknown) Const (units (unkno wn) date) unknown) (unknown) (no (unknown) (unknown) Constitutional (units (unknown) date) unknown) (unknown) (no (unknown) (unknown) Constitutional: (units (unknown) date) Reports system unknown) reviewed and no additional complaints, except as (unknown) (no (unknown) (unknown) Course (units (unkno wn) date) unknown) (unknown) (no (unknown) (unknown) Creatinine 1.17 (units (unknown) date) (0.66-1.25) mg/dL unknown) (unknown) (no (unknown) (unknown) : 1990 (units (unknown) date) Acct:[id number] unknown) (unknown) (no (unknown) (unknown) Date of Service: (units (unknown) date) 01/17/23 unknown) (unknown) (no (unknown) (unknown) Departure (units (unkn own) date) unknown) (unknown) (no (unknown) (unknown) Discharge Plan (units (unknown) date) unknown) (unknown) (no (unknown) (unknown) Discontinued (units (u nknown) date) Medications unknown) (unknown) (no (unknown) (unknown) ED Orders (units (unkn own) date) unknown) (unknown) (no (unknown) (unknown) EKG-12 Lead Stat (units (unknown) date) unknown) (unknown) (no (unknown) (unknown) ER Physician: (units ( unknown) date) Zackery Velazquez D.O. unknown) (unknown) (no (unknown) (unknown) Emergency Report (units (unknown) date) unknown) (unknown) (no (unknown) (unknown) Eos # (Auto) 300 (units (unknown) date) (0-450) /uL unknown) (unknown) (no (unknown) (unknown) Eos % (Auto) 2.5 (units (unknown) date) (2-4) % unknown) (unknown) (no (unknown) (unknown) Esterase (units (unkno wn) date) unknown) (unknown) (no (unknown) (unknown) Estimated GFR > 60 (units (unknown) date) (>60) mL/min unknown) (unknown) (no (unknown) (unknown) Exam (units (unkno wn) date) unknown) (unknown) (no (unknown) (unknown) Extrem (units (unkno wn) date) unknown) (unknown) (no (unknown) (unknown) FINDINGS:? (units (unk nown) date) unknown) (unknown) (no (unknown) (unknown) GI (units (unkno wn) date) unknown) (unknown) (no (unknown) (unknown) Gallbladder:? (units ( unknown) date) Within normal unknown) limits without calcified gallstones.? ? (unknown) (no (unknown) (unknown) Gastrointestinal (units (unknown) date) unknown) (unknown) (no (unknown) (unknown) Gastrointestinal: (units (unknown) date) Reports system unknown) reviewed and no additional complaints, except (unknown) (no (unknown) (unknown) General (units (unkno wn) date) unknown) (unknown) (no (unknown) (unknown) General: (units (unkno wn) date) cooperative unknown) (unknown) (no (unknown) (unknown) General: no rashes (units (unknown) date) or lesions noted unknown) (unknown) (no (unknown) (unknown) General: normal to (units (unknown) date) inspection and unknown) capillary refill normal (unknown) (no (unknown) (unknown) General: patient (units (unknown) date) alert, patient unknown) awake and moves all extremities (unknown) (no (unknown) (unknown) Genitourinary (units ( unknown) date) unknown) (unknown) (no (unknown) (unknown) Genitourinary: (units (unknown) date) Reports system unknown) reviewed and no additional complaints, except as (unknown) (no (unknown) (unknown) Globulin 3.7 (units (u nknown) date) (1.7-4.1) g/dL unknown) (unknown) (no (unknown) (unknown) Glucose 96 (units (unk nown) date) (70-100) mg/dL unknown) (unknown) (no (unknown) (unknown) HENMT (units (unkno wn) date) unknown) (unknown) (no (unknown) (unknown) HPI - General (units ( unknown) date) Adult unknown) (unknown) (no (unknown) (unknown) HPI narrative: (units (unknown) date) unknown) (unknown) (no (unknown) (unknown) Hct 45.8 (41-53) % (units (unknown) date) unknown) (unknown) (no (unknown) (unknown) Head: normal to (units (unknown) date) inspection and unknown) normocephalic (unknown) (no (unknown) (unknown) Heart:? Heart is (units (unknown) date) normal in size. unknown) (unknown) (no (unknown) (unknown) Hematologic/Lympha (units (unknown) date) tic unknown) (unknown) (no (unknown) (unknown) Hgb 15.5 (units (unkno wn) date) (13.5-17.5) g/dL unknown) (unknown) (no (unknown) (unknown) History of Present (units (unknown) date) Illness unknown) (unknown) (no (unknown) (unknown) I do recommend (units (unknown) date) that you keep all unknown) of your scheduled medical appointments and (unknown) (no (unknown) (unknown) IMPRESSION:? (units (u nknown) date) unknown) (unknown) (no (unknown) (unknown) INDICATIONS:? RLQ (units (unknown) date) abd pain eval for unknown) appy (unknown) (no (unknown) (unknown) Image quality:? (units (unknown) date) Excellent.? unknown) (unknown) (no (unknown) (unknown) Imaging Data (units (u nknown) date) unknown) (unknown) (no (unknown) (unknown) Initial Vital (units ( unknown) date) Signs unknown) (unknown) (no (unknown) (unknown) Initial Vital (units ( unknown) date) Signs: unknown) (unknown) (no (unknown) (unknown) Inspection: normal (units (unknown) date) to inspection unknown) (unknown) (no (unknown) (unknown) Instructions: DI (units (unknown) date) for Abdominal unknown) Pain-Adult (unknown) (no (unknown) (unknown) Integumentary/[place] (units (unknown) date) sts unknown) (unknown) (no (unknown) (unknown) [facility] (units (unknown) date) [address] [place] [address] unknown) [place] [address] (unknown) (no (unknown) (unknown) [facility], (units (unknown) date) CT, CT ABDOMEN unknown) PELVIS W CON, 05/18/2022, 19:05. (unknown) (no (unknown) (unknown) Jesika Martinez, (units (unknown) date) [Physician] unknown) (unknown) (no (unknown) (unknown) Kidneys and (units (un known) date) Ureters:? There is unknown) a persistent obstructing stone within the (unknown) (no (unknown) (unknown) Lab Data (units (unkno wn) date) unknown) (unknown) (no (unknown) (unknown) Lab Results (units (un known) date) unknown) (unknown) (no (unknown) (unknown) Lab results (units (un known) date) reviewed: Yes I unknown) reviewed the patient's lab results. (unknown) (no (unknown) (unknown) Labs: (units (unkno wn) date) unknown) (unknown) (no (unknown) (unknown) Lipase 75 (23-300) (units (unknown) date) U/L unknown) (unknown) (no (unknown) (unknown) Lipase Stat (units (un known) date) unknown) (unknown) (no (unknown) (unknown) Liver:? No mass (units (unknown) date) lesion. unknown) (unknown) (no (unknown) (unknown) Lung bases:? (units (u nknown) date) Unremarkable.? ? unknown) (unknown) (no (unknown) (unknown) Lymph # (Auto) (units (unknown) date) 2200 ([id number]) unknown) /uL (unknown) (no (unknown) (unknown) Lymph % (Auto) (units (unknown) date) 17.9 L (25-40) % unknown) (unknown) (no (unknown) (unknown) MCH 29.2 (26-34) (units (unknown) date) PG unknown) (unknown) (no (unknown) (unknown) MCHC 33.9 (30-36) (units (unknown) date) % unknown) (unknown) (no (unknown) (unknown) MCV 86.1 (80-100) (units (unknown) date) fL unknown) (unknown) (no (unknown) (unknown) MDM Narrative (units ( unknown) date) unknown) (unknown) (no (unknown) (unknown) Medical Decision (units (unknown) date) Making unknown) (unknown) (no (unknown) (unknown) Medical Records (units (unknown) date) unknown) (unknown) (no (unknown) (unknown) Medical decision (units (unknown) date) making narrative: unknown) (unknown) (no (unknown) (unknown) Medical records (units (unknown) date) reviewed: Yes I unknown) reviewed the patient's medical records. (unknown) (no (unknown) (unknown) Medication (units (unk nown) date) Instructions unknown) Recorded (unknown) (no (unknown) (unknown) Miscellaneous: No (units (unknown) date) inguinal hernias unknown) are seen. ? ? (unknown) (no (unknown) (unknown) Mode of arrival: (units (unknown) date) Ambulatory unknown) (unknown) (no (unknown) (unknown) Holmes # (Auto) 1200 (units (unknown) date) H (0-900) /uL unknown) (unknown) (no (unknown) (unknown) Holmes % (Auto) 9.9 (units (unknown) date) (3-14) % unknown) (unknown) (no (unknown) (unknown) Musculoskeletal (units (unknown) date) unknown) (unknown) (no (unknown) (unknown) Musculoskeletal: (units (unknown) date) Reports system unknown) reviewed and no additional complaints, except as (unknown) (no (unknown) (unknown) Neuro (units (unkno wn) date) unknown) (unknown) (no (unknown) (unknown) Neurologic (units (unk nown) date) unknown) (unknown) (no (unknown) (unknown) Neurologic: (units (un known) date) Reports system unknown) reviewed and no additional complaints, except as (unknown) (no (unknown) (unknown) Neut # (Auto) 8500 (units (unknown) date) H (8071-6508) /uL unknown) (unknown) (no (unknown) (unknown) Neut % (Auto) 69.2 (units (unknown) date) (50-75) % unknown) (unknown) (no (unknown) (unknown) No Action (units (unkn own) date) unknown) (unknown) (no (unknown) (unknown) No Known Drug (units ( unknown) date) Allergies Allergy unknown) Verified 05/18/22 17:32 (unknown) (no (unknown) (unknown) No indication for (units (unknown) date) antibiotics. No unknown) indication for surgical consultation. This (unknown) (no (unknown) (unknown) On Anticoagulants: (units (unknown) date) No unknown) (unknown) (no (unknown) (unknown) Ondansetron HCl (units (unknown) date) (Ondansetron 4 Mg unknown) Odt) 4 mg PO NOW PRN (unknown) (no (unknown) (unknown) Ondansetron HCl (units (unknown) date) (Ondansetron 4 Mg/2 unknown) Ml Inj) 4 mg IV NOW PRN (unknown) (no (unknown) (unknown) Ordered: (units (o wn) date) unknown) (unknown) (no (unknown) (unknown) Orders (units (o wn) date) unknown) (unknown) (no (unknown) (unknown) Oxygen Delivery (units (unknown) date) Method Room Air unknown) 01/17/23 20:07 (unknown) (no (unknown) (unknown) Oxygen Delivery (units (unknown) date) Method Room Air unknown) Room Air (unknown) (no (unknown) (unknown) PELVIS: (units (o wn) date) unknown) (unknown) (no (unknown) (unknown) PRN Reason: Nausea (units (unknown) date) And Vomiting unknown) (unknown) (no (unknown) (unknown) PROCEDURE:? CT (units (unknown) date) ABDOMEN PELVIS W unknown) CON (unknown) (no (unknown) (unknown) Palpation: soft, (units (unknown) date) No firm and tender unknown) (unknown) (no (unknown) (unknown) Pancreas:? (units (unk nown) date) Unremarkable.? ? unknown) (unknown) (no (unknown) (unknown) Patient (units (o wn) date) Disposition: Home unknown) (unknown) (no (unknown) (unknown) Patient History (units (unknown) date) unknown) (unknown) (no (unknown) (unknown) Patient does have (units (unknown) date) leukocytosis but unknown) not a specific source of an infection. He is (unknown) (no (unknown) (unknown) Patient: (units (o wn) date) [place] MR#: unknown) [id number] (unknown) (no (unknown) (unknown) Pelvic Nodes: No (units (unknown) date) enlarged lymph unknown) nodes.? (unknown) (no (unknown) (unknown) Pelvic Organs:? (units (unknown) date) Unremarkable.? ? unknown) (unknown) (no (unknown) (unknown) Peritoneum:? No (units (unknown) date) abnormal unknown) intraperitoneal fluid.? No free air.? (unknown) (no (unknown) (unknown) Plt Count 254 (units ( unknown) date) (150-400) X103/uL unknown) (unknown) (no (unknown) (unknown) Point of care (units ( unknown) date) testing: unknown) (unknown) (no (unknown) (unknown) Potassium 4.0 (units ( unknown) date) (3.4-5.1) mmol/L unknown) (unknown) (no (unknown) (unknown) Prescriptions: (units (unknown) date) unknown) (unknown) (no (unknown) (unknown) Previous Rx's (units ( unknown) date) unknown) (unknown) (no (unknown) (unknown) Pulse Oximetry 99 (units (unknown) date) 01/17/23 20:07 unknown) (unknown) (no (unknown) (unknown) Pulse Oximetry 99 (units (unknown) date) 97 unknown) (unknown) (no (unknown) (unknown) Pulse Rate 90 (units ( unknown) date) 01/17/23 20:07 unknown) (unknown) (no (unknown) (unknown) Pulse Rate 90 91 H (units (unknown) date) unknown) (unknown) (no (unknown) (unknown) RBC 5.32 (4.5-5.9) (units (unknown) date) X106/uL unknown) (unknown) (no (unknown) (unknown) RDW 12.8 (units (unkno wn) date) (11.6-14.8) % unknown) (unknown) (no (unknown) (unknown) Radiologist's (units ( unknown) date) Impression: unknown) (unknown) (no (unknown) (unknown) Rate: regular rate (units (unknown) date) unknown) (unknown) (no (unknown) (unknown) Referrals: (units (unk nown) date) unknown) (unknown) (no (unknown) (unknown) Related Data (units (u nknown) date) unknown) (unknown) (no (unknown) (unknown) Respiratory Rate (units (unknown) date) 20 01/17/23 20:07 unknown) (unknown) (no (unknown) (unknown) Respiratory Rate (units (unknown) date) 20 18 unknown) (unknown) (no (unknown) (unknown) Review of Systems (units (unknown) date) unknown) (unknown) (no (unknown) (unknown) Signed By: (units (unk nown) date) unknown) (unknown) (no (unknown) (unknown) Skin (units (unkno wn) date) unknown) (unknown) (no (unknown) (unknown) Skin/Breast: (units (u nknown) date) Reports system unknown) reviewed and no additional complaints, except as (unknown) (no (unknown) (unknown) Smoking Status: (units (unknown) date) Never smoker unknown) (unknown) (no (unknown) (unknown) Social History (units (unknown) date) (Reviewed 01/18/23 unknown) @ 03:55 by Zackery Velazquez DO) (unknown) (no (unknown) (unknown) Sodium 138 (units (unk nown) date) (137-145) mmol/L unknown) (unknown) (no (unknown) (unknown) Source: patient (units (unknown) date) unknown) (unknown) (no (unknown) (unknown) Spleen:? Normal in (units (unknown) date) size.? ? unknown) (unknown) (no (unknown) (unknown) Stand Alone Forms: (units (unknown) date) Patient Portal/API unknown) (unknown) (no (unknown) (unknown) Stated complaint: (units (unknown) date) lower rt sided abd unknown) pain (unknown) (no (unknown) (unknown) Stomach and (units (un known) date) Bowel:? Stomach, unknown) small bowel loops, and colon are normal in caliber (unknown) (no (unknown) (unknown) Substance Use (units ( unknown) date) Type: does not use unknown) (unknown) (no (unknown) (unknown) TECHNIQUE:? (units (un known) date) unknown) (unknown) (no (unknown) (unknown) Temperature 98.1 F (units (unknown) date) 01/17/23 20:07 unknown) (unknown) (no (unknown) (unknown) Temperature 98.1 F (units (unknown) date) unknown) (unknown) (no (unknown) (unknown) Time Seen by (units (u nknown) date) Provider: 01/17/23 unknown) 21:57 (unknown) (no (unknown) (unknown) Total Bilirubin (units (unknown) date) 0.5 (0.2-1.3) mg/dL unknown) (unknown) (no (unknown) (unknown) Total Protein 8.4 (units (unknown) date) H (6.3-8.2) g/dL unknown) (unknown) (no (unknown) (unknown) Ur Culture (units (unk nown) date) Indicated? Cult not unknown) indicated (unknown) (no (unknown) (unknown) Ur Squamous Epith (units (unknown) date) Cells 1-5 /hpf unknown) (0-5/HPF) (unknown) (no (unknown) (unknown) Urine Bacteria (units (unknown) date) None seen (None) unknown) (unknown) (no (unknown) (unknown) Urine Dip (units (unkn own) date) unknown) (unknown) (no (unknown) (unknown) Urine Microscopic (units (unknown) date) Stat unknown) (unknown) (no (unknown) (unknown) Urine RBC 5-10/hpf (units (unknown) date) H (0-5/HPF) unknown) (unknown) (no (unknown) (unknown) Urine Specific (units (unknown) date) [place] 1.010 unknown) (unknown) (no (unknown) (unknown) Urine WBC 1-5/hpf (units (unknown) date) (0-5/HPF) unknown) (unknown) (no (unknown) (unknown) Ventral Wall: ? No (units (unknown) date) hernia.? unknown) (unknown) (no (unknown) (unknown) Vessels:? Aorta (units (unknown) date) and inferior vena unknown) cava are normal in size.? (unknown) (no (unknown) (unknown) Vital Signs - 8 hr (units (unknown) date) unknown) (unknown) (no (unknown) (unknown) Vital Signs (units (un known) date) unknown) (unknown) (no (unknown) (unknown) Vital signs: (units (u nknown) date) unknown) (unknown) (no (unknown) (unknown) WBC 12.2 H (units (unk nown) date) (4.5-11.0) X103/uL unknown) (unknown) (no (unknown) (unknown) Kathie Otero, (units (unknown) date) PA-C [Primary Care unknown) Provider] (unknown) (no (unknown) (unknown) [Embedded Image (units (unknown) date) Not Available] unknown) (unknown) (no (unknown) (unknown) alcohol intake (units (unknown) date) frequency: 0-2 unknown) drinks per day (unknown) (no (unknown) (unknown) amoxicillin 875 (units (unknown) date) mg-potassium 1 tab unknown) PO BID #20 tabs 05/18/22 (unknown) (no (unknown) (unknown) amoxicillin-pot (units (unknown) date) clavulanate 875-125 unknown) mg tablet (unknown) (no (unknown) (unknown) and he thought (units (unknown) date) that he had passed unknown) the stone. I do not think that that is what (unknown) (no (unknown) (unknown) and wall (units (unkno wn) date) unknown) (unknown) (no (unknown) (unknown) and/or kV (units (unkn own) date) according to unknown) patient size. (unknown) (no (unknown) (unknown) as documented (units ( unknown) date) unknown) (unknown) (no (unknown) (unknown) asymmetrically (units (unknown) date) delayed right unknown) nephrogram is demonstrated.? There is a (unknown) (no (unknown) (unknown) clavulanate 125 mg (units (unknown) date) tablet unknown) (unknown) (no (unknown) (unknown) contact the (units (un known) date) urologist that unknown) number provided below for follow-up. Return to the (unknown) (no (unknown) (unknown) demonstrates no (units (unknown) date) hydronephrosis.? unknown) There are at least 3 small nonobstructing (unknown) (no (unknown) (unknown) documented (units (unk nown) date) unknown) (unknown) (no (unknown) (unknown) dose reduction, (units (unknown) date) the following was unknown) used:? automated exposure control, adjustment (unknown) (no (unknown) (unknown) emergency (units (unkn own) date) department for any unknown) new symptoms. (unknown) (no (unknown) (unknown) follow-up (units (unkn own) date) instructions. He unknown) expressed understanding and agreement. (unknown) (no (unknown) (unknown) hydrocodone 5 (units ( unknown) date) mg-acetaminophen unknown) 325 1 tab PO Q6H PRN pain #10 tabs 12/23/22 (unknown) (no (unknown) (unknown) hydrocodone-acetam (units (unknown) date) inophen 5-325 mg unknown) tablet (unknown) (no (unknown) (unknown) hydronephrosis and (units (unknown) date) delayed right unknown) nephrogram. (unknown) (no (unknown) (unknown) infection. The CT (units (unknown) date) scan also does not unknown) show any specific source of the symptoms. (unknown) (no (unknown) (unknown) is causing his (units (unknown) date) symptoms today. His unknown) urinalysis does not show any signs of (unknown) (no (unknown) (unknown) kidney (units (unkno wn) date) unknown) (unknown) (no (unknown) (unknown) lung bases (units (unk nown) date) unknown) (unknown) (no (unknown) (unknown) mg tablet (units (unkn own) date) unknown) (unknown) (no (unknown) (unknown) mild right (units (unk nown) date) unknown) (unknown) (no (unknown) (unknown) nonobstructing (units (unknown) date) stone unknown) (unknown) (no (unknown) (unknown) not having any (units (unknown) date) testicular pain. No unknown) skin rashes. The CT scan today does show (unknown) (no (unknown) (unknown) of mA (units (unkno wn) date) unknown) (unknown) (no (unknown) (unknown) ondansetron 4 mg (units (unknown) date) disintegrating 4 mg unknown) PO Q8H PRN nausea and 12/23/22 (unknown) (no (unknown) (unknown) ondansetron 4 mg (units (unknown) date) tablet,disintegrati unknown) ng (unknown) (no (unknown) (unknown) pain and had the (units (unknown) date) CT scan. He stated unknown) that the pain that he was seen for resolved (unknown) (no (unknown) (unknown) proximal right (units (unknown) date) unknown) (unknown) (no (unknown) (unknown) radiation (units (unkn own) date) unknown) (unknown) (no (unknown) (unknown) rashes. No prior (units (unknown) date) abdominal unknown) surgeries. (unknown) (no (unknown) (unknown) right-sided lower (units (unknown) date) abdominal pain that unknown) with the past several hours has become (unknown) (no (unknown) (unknown) stones with (units (un known) date) unknown) (unknown) (no (unknown) (unknown) symptoms. No (units (u nknown) date) change in bowel unknown) habits. No fevers. No nausea vomiting. No skin (unknown) (no (unknown) (unknown) tablet vomiting (units (unknown) date) #10 tabs unknown) (unknown) (no (unknown) (unknown) that side. He was (units (unknown) date) seen here in the unknown) emergency department for right-sided flank (unknown) (no (unknown) (unknown) the largest (units (un known) date) measuring up to 0.2 unknown) cm.? Left ureter is nondistended.? (unknown) (no (unknown) (unknown) the proximal (units (u nknown) date) right-sided stone. unknown) He states that he knew that he would a stone on (unknown) (no (unknown) (unknown) thickness.? The (units (unknown) date) appendix is unknown) normal.? (unknown) (no (unknown) (unknown) to the pubic (units (u nknown) date) symphysis.? Coronal unknown) and sagittal reformats were performed.? For (unknown) (no (unknown) (unknown) ureter, measuring (units (unknown) date) up to approximately unknown) 0.3 cm with mild right hydronephrosis.? (unknown) (no (unknown) (unknown) very well could be (units (unknown) date) a muscle strain. unknown) Patient was given return precautions and (unknown) (no (unknown) (unknown) within the (units (unk nown) date) inferior pole of unknown) the right kidney measuring up to 0.4 cm.? The left (unknown) (no (unknown) (unknown) worse and is also (units (unknown) date) occasionally unknown) radiating down to his right testicle. No urinary Social History date description facility 2022-12-23 00:00 Never smoked tobacco (finding) [facility] 2023-01-17 00:00 Never smoked tobacco (finding) [facility] Vital Signs date measurement value units 2022-12-23 00:00 BMI 54.6 kg/m2 2022-12-23 00:00 BP_diastolic 96 mmHg 2022-12-23 00:00 BP_systolic 145 mmHg 2022-12-23 00:00 heart_rate 88 /min 2022-12-23 00:00 height_metric 175.26 cm 2022-12-23 00:00 height_standard 69 in 2022-12-23 00:00 o2_saturation 96 % 2022-12-23 00:00 respiration_rate 16 /min 2022-12-23 00:00 temperature_metric 36.33 C 2022-12-23 00:00 temperature_standard 97.4 F 2022-12-23 00:00 weight_metric 167.82 kg 2022-12-23 00:00 weight_standard 369.98 lb 2023-01-17 00:00 BMI 53.8 kg/m2 2023-01-17 00:00 height_metric 175.26 cm 2023-01-17 00:00 height_standard 69 in 2023-01-17 00:00 temperature_metric 36.72 C 2023-01-17 00:00 temperature_standard 98.1 F 2023-01-17 00:00 weight_metric 165.56 kg 2023-01-17 00:00 weight_standard 365 lb 2023-01-18 00:00 BP_diastolic 85 mmHg 2023-01-18 00:00 BP_systolic 135 mmHg 2023-01-18 00:00 heart_rate 91 /min 2023-01-18 00:00 o2_saturation 97 % 2023-01-18 00:00 respiration_rate 18 /min
--- NOTE | 2023-02-07 09:12 | ED Physician Documentation ---
History of Present Illness - Stated complaint Stated Complaint: SOA,LT BACK/SHOULDER PX - Chief complaint Chief Complaint: Resp - History obtained from History obtained from: Patient - Additonal information Additional information: 32-year-old gentleman who is healthy save for obesity developed gradual onset left-sided upper back pain yesterday. It became progressive overnight. It is much worse if he bends over or twists in a certain way. There is no specific injury. 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 No Shortness of breath. No cough. PD PAST MEDICAL HISTORY - Present Medications Home Medications: Ambulatory Orders Medication Instructions Recorded Confirmed Cyclobenzaprine [Flexeril] 10 mg PO TID PRN #20 tablet 02/07/23 HYDROcod/ACETAM 5/325 [[place] 5/325] 1 - 2 tab PO Q6H PRN #15 tablet 02/07/23 Ibuprofen [Motrin] 800 mg PO Q8H PRN #20 tablet 02/07/23 Ketoconazole 2% Cream [Nizoral 2% 1 applic TOP BID #60 gm 02/07/23 Cream] - Allergies Allergies/Adverse Reactions: Allergies Allergy/AdvReac Type Severity Reaction Status Date / Time No Known Drug Allergies Allergy Verified 02/07/23 08:46 PD ED PE NORMAL - Vitals Vital signs reviewed: Yes - General General: Alert and oriented X 3, Other (He is comfortable at rest but winces with motion and sitting up.) - Neck Neck: Supple, no meningeal sign, No bony TTP - Cardiac Cardiac: RRR, No murmur - Respiratory Respiratory: No respiratory distress, Clear bilaterally - Abdomen Abdomen: Non tender - Back Back: No spinal TTP, Other (I am able to completely reproduce the pain with palpation of the left parathoracic musculature.) - Derm Derm: Other (There is a small area of ringworm to the right upper quadrant) - Neuro Neuro: Alert and oriented X 3, Normal speech Results - Vitals Vitals: Vital Signs - 24 hr 02/07/23 02/07/23 08:42 09:49 Temperature 36.4 C L Heart Rate 89 57 L Respiratory 20 17 Rate Blood Pressure 173/114 H 125/66 O2 Saturation 98 96 Oxygen O2 Source Room air - EKG (time done) 0833 EKG releavant findings:: EKG personally interpreted by author of this note. Relevant findings are: Rate: Rate (enter#) (90) Rhythm: NSR [place]: Normal Intervals: Normal NC QRS: Normal Ischemia: Normal ST segments - Rads (name of study) Single view chest x-ray is unremarkable Relevant Findings:: Final report received, EMP independent interpretation of test PD Medical Decision Making - ED course ED course: 32-year-old gentleman with upper back pain. It is completely reproducible on exam and off to the left consistent with muscle spasm. Other more sinister etiology such as ACS, dissection were considered but felt to be very unlikely given the clinical circumstances. He was administered 15 mg of IV ketorolac and 1 mg of IV Dilaudid. After the administration of the above medications he was feeling much better and moving easier. Departure - Departure Disposition: 01 Home, Self Care Clinical Impression: Back spasm, Ringworm Condition: Good Record reviewed to determine appropriate education?: Yes Instructions: ED Spasm Back No Trauma, ED Infec Skin Fungal Tinea Prescriptions: Cyclobenzaprine [Flexeril] 10 mg PO TID PRN #20 tablet PRN Reason: Spasms Ibuprofen [Motrin] 800 mg PO Q8H PRN #20 tablet PRN Reason: PAIN &/OR FEVER Ketoconazole 2% Cream [Nizoral 2% Cream] 1 applic TOP BID #60 gm HYDROcod/ACETAM 5/325 [[place] 5/325] 1 - 2 tab PO Q6H PRN #15 tablet PRN Reason: Pain Comments: I sent your prescriptions electronically to [facility] in [place]. Follow-up with your primary care physician, consider further testing and physical therapy if not better in the next few days. Heat and gentle stretching may be helpful as well. Return for new or worsening symptoms. I am prescribing a short course of narcotic pain medication for you. These are potentially dangerous and addictive medications that should be used carefully. These medications may constipate you. Take an onxs-aga-myempvf stool softener (docusate) twice daily with plenty of water while taking these medications. If you go 24 hours without a bowel movement, take [id number] miralax, per package instructions. Do not drink or drive while taking these medications. If you received narcotic or sedating medications while in the emergency department, do not drive for 24 hours. Store this medication in a safe, secure place and out of reach of children. It is a violation of federal law to give or sell this medication to another person or to use in a manner other than prescribed. The ED will not refill narcotic prescriptions, including prescriptions lost or stolen. To dispose of unwanted medications: 1. [facility] at [address] in [place] has a medication drop box. They accept prescription medications (in pill form) Sunday through Sunday 9:00 a.m. to 5:00 p.m. 2. The [facility] accepts prescription medications (in pill form only) for disposal year round. Call for more information. 3. Contact the [facility] for the next COUNT INCLUDES THE [facility] sponsored prescription drug collection event. , [phone], or [phone]; Note that many narcotic pain relievers also contain Tylenol/acetaminophen. Please ensure that your total dose of acetaminophen from all sources does not exceed 3 g (3000 mg) per day. Discharge Date/Time: 02/07/23 10:22
--- NOTE | 2023-02-07 09:20 | XRAY Report ---
PROCEDURE: Chest 1 View X-Ray INDICATIONS: back pain TECHNIQUE: One view of the chest was acquired. COMPARISON: None. FINDINGS: Surgical changes and devices: None. Lungs and pleura: No pleural effusions or pneumothorax. Lungs are clear. Mediastinum: Mediastinal contours appear normal. Heart size is normal. Bones and chest wall: No suspicious bony lesions. Overlying soft tissues appear unremarkable. IMPRESSION: No acute cardiopulmonary pathology. Reviewed by: Dane Mcnally MD on 02/07/2023 9:18 AM PDT Approved by: Dane Mcnally MD on 02/07/2023 9:18 AM PDT Station ID: [id number]
[2023-02-07] MEDS: KETOROLAC 15 MG/ML VIAL IVP STA (09:23)
[2023-02-07] MEDS: HYDROmorphone 1 MG/ML CARPUJECT IVP STA (09:23)
[2023-02-07 09:50] VITALS: BP 125/66
== END 2023-02-07 10:22 | disposition home or self-care (01) ==
LOC: ED 08:25
DX: M62.830 Muscle spasm of back (principal); B35.4 Tinea corporis
CPT/HCPCS: 36415; 71045; 93005; 96374; 96375; 99284; J1170

== ENCOUNTER 2023-12-27 13:55 | Emergency (ER) | payer SELFPAY ==
--- NOTE | 2023-12-27 15:08 | ED Physician Documentation ---
History of Present Illness - Stated complaint Stated Complaint: HEAD PX/LT SIDE WEAKNESS - Chief complaint Chief Complaint: General - History obtained from History obtained from: Patient - Additonal information Additional information: 33yo male with somewhat frequent headaches, but usually only last ~1 day. gradual onset headache 2 days ago, now WHOL. was light sensitive, not now. Now nausea mild relief with tylenol no fevers or neck stiff worried about bp at home up to 180/100, currenyt 142/86 on monitor. PD PAST MEDICAL HISTORY - Past Medical History Past Medical History: Yes Cardiovascular: None Respiratory: None Neuro: Headaches, Migraines Endocrine/Autoimmune: None GI: None : Kidney stones HEENT: None Psych: None Musculoskeletal: None Derm: None - Past Surgical History Past Surgical History: Yes Ortho: Other - Present Medications Home Medications: Ambulatory Orders Medication Instructions Recorded Confirmed Ibuprofen [Motrin] 800 mg PO Q8H PRN #20 tablet 02/07/23 12/27/23 SUMAtriptan [Imitrex] 25 mg PO BID PRN #10 tablet 12/27/23 - Allergies Allergies/Adverse Reactions: Allergies Allergy/AdvReac Type Severity Reaction Status Date / Time No Known Drug Allergies Allergy Verified 12/27/23 13:58 - Social History Does the pt smoke?: No Smoking Status: Never smoker Does the pt drink ETOH?: No Does the pt have substance abuse?: No - Immunizations Immunizations are current?: Yes - POLST Patient has POLST: No PD ED PE NORMAL - Vitals Vital signs reviewed: Yes - General General: Alert and oriented X 3, No acute distress - HEENT HEENT: PERRL, EOMI - Neck Neck: Supple, no meningeal sign - Neuro Neuro: Alert and oriented X 3, 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, No motor deficit, No sensory deficit, Normal speech Eye Opening: Spontaneous Motor: Obeys Commands Verbal: Oriented GCS Score: 15 - Psych Psych: Normal mood, Normal affect Results - Vitals Vitals: Vital Signs - 24 hr 12/27/23 12/27/23 13:59 15:03 Temperature 36.5 C Heart Rate 85 85 Respiratory 16 18 Rate Blood Pressure 165/95 H 148/92 H O2 Saturation 99 97 Oxygen O2 Source Room air - Labs Labs: Laboratory Tests 12/27/23 15:14 Sodium 137 Potassium 4.0 Chloride 104 Carbon Dioxide 28 Anion Gap 5.0 L BUN 15 Creatinine 0.9 Estimated GFR (MDRD) 98 Glucose 84 Calcium 9.6 Total Bilirubin 0.4 AST 16 ALT 23 Alkaline Phosphatase 68 Total Protein 7.3 Albumin 4.1 Globulin 3.2 Albumin/Globulin Ratio 1.3 PD Medical Decision Making - ED course ED course: Gradual onset CASTRO< but WHOL so CTH done and neg., CASTRO better p toradol/imitrex. Not c/w meningitis. CMP nl. Departure - Departure Disposition: 01 Home, Self Care Clinical Impression: Headache Qualifiers: Headache type: unspecified Headache chronicity pattern: acute headache Intractability: not intractable Qualified Code(s): R51.9 - Headache, unspecified Condition: Stable Record reviewed to determine appropriate education?: Yes Instructions: ED Headache Migraine Prescriptions: SUMAtriptan [Imitrex] 25 mg PO BID PRN #10 tablet PRN Reason: Headache Comments: CT head was normal and BP better without specific intervention. Followup with your PCP, next available appointment, return if worse. Forms: PCP List
[2023-12-27] MEDS: KETOROLAC 15 MG/ML VIAL IVP STA (15:28)
[2023-12-27] MEDS: SUMAtriptan 6 MG/0.5 ML VIAL SUBQ STA (15:31)
[2023-12-27 15:33] LABS: ALBUMIN 4.1 g/dL (3.2-5.5); ALBUMIN/GLOBULIN RATIO 1.3 (1.0-2.2); BILIRUBIN,TOTAL 0.4 mg/dL (0.2-1.0); CALCIUM 9.6 mg/dL (8.5-10.3); CREATININE 0.9 mg/dL (0.6-1.3); TOTAL PROTEIN 7.3 g/dL (6.4-8.9)
[2023-12-27] MEDS: SODIUM CHLORIDE 0.9% 1,000 ML IV STA (15:43)
--- NOTE | 2023-12-27 16:06 | CT Report ---
PROCEDURE: Head WO INDICATIONS: whol TECHNIQUE: Noncontrast 4.5 mm thick angled axial sections acquired from the foramen magnum to the vertex. For r adiation dose reduction, the following was used: automated exposure control, adjustment of mA and/or kV according to patient size. COMPARISON: None. FINDINGS: Image quality: Excellent. CSF spaces: Basal cisterns are patent. No extra-axial fluid collections. Ventricles are normal in size and shape. Brain: No midline shift. No intracranial masses or hemorrhage. Long-white matter interface is norm al. Skull and face: Calvarium and visualized facial bones are intact, without suspicious lesions. Sinuses: Visualized sinuses and mastoids are clear. IMPRESSION: No acute intracranial pathology. Reviewed by: Vic Joseph MD on 12/27/2023 4:05 PM [facility] Approved by: Vic Joseph MD on 12/27/2023 4:05 PM [facility] Station ID: [id number]
[2023-12-27 16:31] VITALS: BP 138/78; O2SAT 100
== END 2023-12-27 16:52 | disposition home or self-care (01) ==
LOC: ED 13:55
DX: R51.9 Headache, unspecified (principal)
CPT/HCPCS: 36415; 80053; 96374; 99283

== ENCOUNTER 2024-04-10 09:15 | Outpatient (CLI) | payer SELFPAY | END 2024-04-10 09:30 | disposition home or self-care (01) | LOC: LAB.N 09:15 | PROVIDERS: ATTEND Physician Assistant Medical | DX: R13.10 Dysphagia, unspecified (principal) | CPT/HCPCS: 87070 ==